=== PATIENT | female | born 1965 | race Caucasian/White ===

== ENCOUNTER 2019-03-19 11:24 | Outpatient (CLI) | payer OTHER, SELFPAY ==
--- NOTE | ~2019-03-19 | MMUS_ITS ---
EXAMINATION: MM diagnostic mammo BI, US breast BI complete HISTORY: Bilateral developing breast asymmetries reported on 02/27/2019 screening mammogram TECHNIQUE: Additional full field ML and spot 3-D tomosynthesis images of both breasts were performed and synthetic 2-D images were generated. CAD analysis was submitted and interpreted. High resolution complete bilateral breast ultrasound was performed. COMPARISON: 02/27/2019, 01/24/2018, 01/17/2017 bilateral digital screening mammogram examinations FINDINGS: MAMMOGRAPHIC FINDINGS: There is somewhat nodular appearing asymmetric heterogeneous fibroglandular stroma of the breasts, wh ich may obscure small masses. Bilateral complete breast ultrasound examination was performed. ULTRASOUND: No suspicious mass or shadowing of either breast is detected. Multiple cysts are noted: Right breast: 12:00 1 cm from nipple: Parallel circumscribed 4.5 x 2.5 x 2.3 mm mildly complicated cyst, without in ternal vascularity or posterior shadowing 4:00 1 cm from nipple: 2.4 x 2.3 x 3.0 mm circumscribed hypoechoic lesion without internal vascularit y or suspicious shadowing. 7:00 1 cm from nipple: 2.3 x 3.7 x 2.5 mm septated cyst 9:00 1 cm from nipple: Adjacent 2.5 and 3.4 mm cysts 10:00 4 cm from nipple: 4.0 x 5.1 x 3.4 mm simple cyst with through transmission and posterior enhanc ement 11:00 4 cm from nipple: 3.1 x 3.2 x 3.5 mm simple cyst with through transmission and posterior enhanc ement Left breast: 12:00 2 cm from nipple: Several cysts are noted, measuring up to 4.4 mm maximal dimension. 2:00 5 cm from nipple: 3.8 x 4.6 x 2.6 mm cyst 2:00 5 cm from nipple: 3.4 x 2.9 x 2.9 mm cyst 8:00 1 cm from nipple: 1.5 x 3.2 x 2.7 mm minimally septated cyst 9:00 2 cm from nipple: 2.4 x 3.2 mm cyst with through transmission and posterior enhancement 10:00 2 cm from nipple: 3.1 x 2.1 x 2.1 mm simple cyst Subareolar area: 2.9 x 4.9 x 4.4 mm simple cyst IMPRESSION: 1. No mammographic evidence of malignancy; multiple bilateral breast cysts 2. Routine mammographic screening follow-up is recommended BI-RADS Category 2: Benign finding(s). Reviewed, dictated and finalized at location A. EL BRIDGE ASSEMBLER IMPRESSION: 1. No mammographic evidence of malignancy; multiple bilateral breast cysts 2. Routine mammographic screening follow-up is recommended BI-RADS Category 2: Benign finding(s).
== END 2019-03-19 11:25 | disposition home or self-care (01) ==
LOC: ANHIMG 11:27
PROVIDERS: PCP Family Medicine; Visit Provider Obstetrics & Gynecology Gynecology
DX: R92.8 Other abnormal and inconclusive findings on diagnostic imaging of breast (principal)
CPT/HCPCS: 76641; 77066

== ENCOUNTER 2019-08-26 09:13 | Outpatient (CLI) | payer OTHER, SELFPAY ==
--- NOTE | ~2019-08-26 | DEXA_ITS ---
Bone Density Report Name: Leonarda Hernandez Age: 54 Sex: Female Ethnicity: White Date of : 1965 Indication: postmenopausal; parental hip fracture; height loss; prior fracture; Referring Provider: SHIELA DURAND Study: Bone densitometry was performed. Exam Date: August 26, 2019 Accession number: [id number] Bone Density: Region BMD T-score Z-score Classification AP Spine (L1-L4) 0.822 -2.0 -1.0 Osteopenia Femoral Neck (Left) 0.588 -2.3 -1.4 Osteopenia Total Hip (Left) 0.781 -1.3 -0.7 Osteopenia Total Hip Bilateral Avg 0.796 -1.2 -0.6 Osteopenia Femoral Neck (Right) 0.586 -2.4 -1.4 Osteopenia Total Hip (Right) 0.810 -1.1 -0.4 Osteopenia World Health Organization criteria for BMD impression classify patients as: Normal (T-score at or above -1.0), Osteopenia (T-score between -1.0 and -2.5), or Osteoporosis (T-score at or below -2.5). 10-year Fracture Risk(1): Major Osteoporotic Fracture 27% Hip Fracture 4.8% Reported Risk Factors: [place] (), Neck BMD=0.586, BMI=23.7, previous fracture, parental fracture, smoking (1) FRAX(R) Version 3.08. Fracture probability calculated for an untreated patient. Fracture probability may be lower if the patient has received treatment. Clinical Information Provided by Patient: Has had a low trauma fracture Parent has had a hip fracture Smokes Has used the following medications: HRT (i.e. estrogen/hormone therapy), Vitamin D Patient maximum height was 65 Menopause Age: 45 No regular weight bearing exercise Onset of menses at age 12 Number of children 3 Impression: The patient has low bone mass, based on the Right Femoral Neck T-score. The patient has an estimated ten-year risk of hip fracture of 4.8% and an estimated ten-year risk of major fracture of 27%, based on the WHO FRAX algorithm. The patient has risk factors, including: parental hip fracture, smoking, previous fracture. Discussion: BONE DENSITY IS LOW AT ONE OR MORE SKELETAL SITES. THE PATIENT'S BMD AND CLINICAL RISK FACTORS CONTRIBUTE TO THIS PATIENT'S HIGH RISK OF FRACTURE. This patient's lowest T-score is low at one or more skeletal sites. It meets the World Health Organization's (WHO) criteria for ?low bone mass? (T-score between -1.0 and -2.5). The patient's 10-year risk of hip fracture and 10 year risk of a major osteoporotic fracture as calculated by FRAX exceeds the threshold where pharmacological therapy is recommended by the National Osteoporosis Foundation (NOF). However, all treatment decisions require clinical judgment and consideration of individual patient factors, including patient preferences, comorbidities, previous drug use, risk factors not captured in the FRAX model (e.g., frailty, falls, vitamin D deficiency, increased bone turnover, interval significant decline in bone dens
== END 2019-08-26 09:14 | disposition home or self-care (01) ==
PROVIDERS: Visit Provider Obstetrics & Gynecology Gynecology
DX: Z78.0 Asymptomatic menopausal state (principal); M85.88 Other specified disorders of bone density and structure, other site; M85.852 Other specified disorders of bone density and structure, left thigh; M85.851 Other specified disorders of bone density and structure, right thigh
CPT/HCPCS: 77080

== ENCOUNTER 2020-03-26 13:44 | Outpatient (CLI) | payer OTHER, SELFPAY ==
--- NOTE | ~2020-03-26 | MM_ITS ---
EXAMINATION: MM screening roman BI w carola HISTORY: Screening TECHNIQUE: Craniocaudal and mediolateral oblique 3-D tomosynthesis images were obtained and synthetic 2-D images were generated. CAD analysis was submitted and interpreted. COMPARISON: Comparison to multiple prior studies sequentially, with oldest reviewed study dated 06/2014. BREAST PARENCHYMAL COMPOSITION: There are scattered areas of fibroglandular density. FINDINGS: There is no evidence of suspicious mass, calcification, or architectural distortion to sugg est malignancy in either breast. There has been no suspicious interval change. IMPRESSION: 1. No mammographic evidence of malignancy. 2. Recommend routine screening mammography in one year. BI-RADS Category 1: Negative Reviewed, dictated and finalized at location A. ATRIC ASSISTANT
== END 2020-03-26 13:45 | disposition home or self-care (01) ==
LOC: ANHIMG 13:51
PROVIDERS: Visit Provider Obstetrics & Gynecology Gynecology
DX: Z12.31 Encounter for screening mammogram for malignant neoplasm of breast (principal)
CPT/HCPCS: 77063; 77067

== ENCOUNTER 2021-03-29 10:28 | Outpatient (CLI) | payer OTHER, SELFPAY ==
--- NOTE | ~2021-03-29 | MM_ITS ---
EXAMINATION: MM screening roman BI w carola HISTORY: Screening mammogram TECHNIQUE: Craniocaudal and mediolateral oblique 3-D tomosynthesis images were obtained and synthetic 2-D images were generated. Bilateral rotated lateral craniocaudal views. CAD analysis was submitted and interpreted. COMPARISON: 01/23/2021 bilateral screening mammogram 03/19/2019 bilateral diagnostic mammography and bilateral complete breast ultrasound 02/27/2019 bilateral screening mammogram BREAST PARENCHYMAL COMPOSITION: There are scattered areas of fibroglandular density. FINDINGS: Scattered benign calcifications. Stable mild fibroglandular asymmetry. There is no evidence of suspicious mass, calcification, or architectural distortion to suggest malignancy in either breas t. There has been no suspicious interval change. IMPRESSION: 1. No mammographic evidence of malignancy. 2. Recommend routine screening mammography in one year. BI-RADS Category 2: Benign finding(s). Reviewed, dictated and finalized at location A. RUMENT REPAIRER
== END 2021-03-29 10:29 | disposition home or self-care (01) ==
LOC: ANHIMG 10:32
PROVIDERS: PCP Family Medicine; Visit Provider Obstetrics & Gynecology Gynecology
DX: Z12.31 Encounter for screening mammogram for malignant neoplasm of breast (principal)
CPT/HCPCS: 77063; 77067

== ENCOUNTER 2022-01-14 09:39 | Outpatient (CLI) | payer OTHER, SELFPAY ==
--- NOTE | ~2022-01-14 | DEXA_ITS ---
Bone Density Report Name: LINN CHEW Age: 56 Sex: Female Ethnicity: White Date of : 1965 Indication: osteopenia; monitoring treatment; parental hip fracture; height loss; postmenopausal Referring Provider: LINN BANKS Study: Bone densitometry was performed. Exam Date: January 14, 2022 Accession number: [id number] Bone Density: Region BMD T-score Z-score Classification AP Spine(L1-L4) 0.894 -1.4 -0.2 Osteopenia Femoral Neck (Left) 0.593 -2.3 -1.2 Osteopenia Total Hip (Left) 0.754 -1.5 -0.8 Osteopenia Femoral Neck (Right) 0.585 -2.4 -1.3 Osteopenia Total Hip (Right) 0.785 -1.3 -0.5 Osteopenia Total Hip Mean 0.769 -1.4 -0.7 Osteopenia World Health Organization criteria for BMD impression classify patients as: Normal (T-score at or above -1.0), Osteopenia (T-score between -1.0 and -2.5), or Osteoporosis (T-score at or below -2.5). 10-year Fracture Risk: FRAX not reported because: Treated for osteoporosis Previous Exams: Region Exam Age BMD T-score BMD Change BMD Change Date g/cm2 vs Baseline vs Previous AP Spine (L1-L4) 01/14/2022 56 0.894 -1.4 0.073 (8.8%)* 0.073 (8.8%)* 08/26/2019 54 0.822 -2.0 Total Hip(Left) 01/14/2022 56 0.754 -1.5 -0.027 (-3.5%) -0.027 (-3.5%) 08/26/2019 54 0.781 -1.3 Total Hip(Right) 01/14/2022 56 0.785 -1.3 -0.025 (-3.1%) -0.025 (-3.1%) 08/26/2019 54 0.810 -1.1 *Denotes significance at 95% confidence level, LSC for AP Spine = 0.022 g/cm2, LSC for Total Hip = 0.027 g/cm2 Clinical Information Provided by Patient: Parent has had a hip fracture Smokes Is being treated for osteoporosis Has used the following medications: Fosamax (i.e. alendronate), HRT (i.e. estrogen/hormone therapy), Vitamin D, Calcium Patient maximum height was 65 Menopause Age: 45 No regular weight bearing exercise Drinks caffeinated beverages Onset of menses at age 13 Number of children 3 Impression: The patient has low bone mass, based on the Right Femoral Neck T-score. The patient has risk factors, including: parental hip fracture, smoking. No significant bone loss was observed. Discussion: PATIENT UNDER TREATMENT WITH NO SIGNIFICANT BMD LOSS SINCE LAST EXAM. In an untreated patient, BMD typically declines with age. A lack of decline or gain is usually a sign that treatment is efficacious and fracture risk is reduced. It is important to ask patients whether they are taking their medications and to
== END 2022-01-14 09:40 | disposition home or self-care (01) ==
LOC: ANHIMG 09:41
PROVIDERS: PCP Family Medicine; Visit Provider Advanced Practice Midwife
DX: M85.88 Other specified disorders of bone density and structure, other site (principal); M85.852 Other specified disorders of bone density and structure, left thigh; M85.851 Other specified disorders of bone density and structure, right thigh
CPT/HCPCS: 77080

== ENCOUNTER 2023-10-06 09:44 | Outpatient (CLI) | payer OTHER, MEDICARE, SELFPAY ==
--- NOTE | ~2023-10-06 | MM_ITS ---
EXAMINATION: MM screening roman BI w carola HISTORY: Screening TECHNIQUE: Craniocaudal and mediolateral oblique 3-D tomosynthesis images were obtained and synthetic 2-D images were generated. CAD analysis was submitted and interpreted. COMPARISON: Comparison to multiple prior studies sequentially, with oldest reviewed study dated 01/06 2. BREAST PARENCHYMAL COMPOSITION: Not dense: There are scattered areas of fibroglandular density. FINDINGS: There is no evidence of suspicious mass, calcification, or architectural distortion to sugg est malignancy in either breast. There has been no suspicious interval change. IMPRESSION: 1. No mammographic evidence of malignancy. 2. Recommend routine screening mammography in one year. BI-RADS Category 1: Negative Reviewed, dictated and finalized at location B.
== END 2023-10-06 09:45 | disposition home or self-care (01) ==
PROVIDERS: PCP Family Medicine; Visit Provider Obstetrics & Gynecology
DX: Z12.31 Encounter for screening mammogram for malignant neoplasm of breast (principal)
CPT/HCPCS: 77063; 77067

== ENCOUNTER 2024-05-21 16:49 | Emergency (ER) | payer OTHER, MEDICARE, SELFPAY ==
--- NOTE | ~2024-05-21 | CT_ITS ---
CT facial bones w con Ordering provider: Ce Madsen History: . periorbital cellulitis? . Comparison: None. Technique: Thin slice axial CT of the facial bones was performed without contrast. Coronal and sagit pranav reformatted images were also obtained. . Automated exposure control and iterative reconstruction technique were employed. The dose-length product was 315.92 mGy-cm. 75 mL Omnipaque 350 was given IV . FINDINGS: PARANASAL SINUSES: Right maxillary sinus disease otherwise, Well aerated. BONES: No facial fracture including no nasal bone fracture. Dental cares seen in the anterior midline of the lower mandible ORBITS AND SUPERFICIAL SOFT TISSUES: The optic globes and orbits are normal. Fat stranding seen anter ior to the right orbit and anterior to the right upper mandible suggestive of cellulitis with possi ble small focus of abscess formation which measures 7x9x6 mm. Follow-up advised. Otherwise, The super ficial soft tissues are normal. VISUALIZED MASTOIDS: Well aerated. LIMITED VISUALIZED BRAIN PARENCHYMA: Aneurysm is seen in the right MCA junction between the first and second segments measuring 1.3 x 0.8x0.9 cm which is larger study done in September 06, 2016. Prominent right superior ophthalmic vein. No definite cc fistula is not well demonstrated. Further ev aluation advised. IMPRESSION: No facial fracture. Cellulitis anterior to the right upper mandible and anterior to the right orbit with possible small a bscess. Aneurysm is seen in the right MCA which is larger than seen in the previous study done in 2016. 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 Further evalu ation is advised. Reviewed, dictated and finalized at location A. IMPRESSION: No facial fracture. Cellulitis anterior to the right upper mandible and anterior to the right orbit with possible small abscess. Aneurysm is seen in the right MCA which is larger than seen in the previous donn dy done in 2017. 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 Further evaluation is advised.
[2024-05-21 16:55] VITALS: BP 131/85; PULSE 98; RESP 16; TEMP 36.4; O2SAT 100
--- NOTE | 2024-05-21 17:01 | ED_ITS ---
HPI - Skin/Abscess/Foreign Bdy General Chief complaint: Skin/Abscess/Foreign Body <eC Madsen PA-C - Last Filed: 05/21/24 17:03> Stated complaint: Swelling right side of face- not Dental <Ce Madsen PA-C - Last Filed: 05/21/24 17:03> Time Seen by Provider: 05/21/24 18:33 <Ce Madsen PA-C - Last Filed: 05/21/24 17:03> Focused HPI: 58 y/o F presents to the ED for right sided facial swelling x3 weeks. She has been to the dentist several times. Initially was rx amoxicillin with improvement, however swelling came back after she finished the course. She saw her dentist again and was rx keflex yesterday. Has taken 2 doses but swelling has worsened so she came to the ED. States her dentist has told her that her teeth do not look infected. She denies fever, difficulty breathing or swallowing, drooling, fever, n/v. Denies pain with EOMs, vision changes. GENERAL: Well-appearing, well-nourished, and in no acute distress. HEAD: Normocephalic, atraumatic. Edema, warmth and erythema inferior to the right orbit with tenderness CHEST: Clear to auscultation. ?No respiratory distress. HEART: Regular rate and rhythm.? NEURO: ?Alert and oriented x3. Patient screened in triage and initial orders placed.? ?Additional care and disposition to be based upon?diagnostic testing and treatment. <Ce Madsen PA-C - Last Filed: 05/21/24 17:03> Source: patient <SOHAM Hernández Last Filed: 05/21/24 20:24> Mode of arrival: ambulatory <SOHAM Hernández Last Filed: 05/21/24 20:24> Limitations: no limitations <SOHAM Hernández Last Filed: 05/21/24 20:24> History of Present Illness HPI narrative: Agree MSE note above <SOHAM Hernández Last Filed: 05/21/24 20:24> Related Data Home medications: Home Medications ?Medication ?Instructions ?Recorded ?Confirmed ?Last Taken ?Type amitriptyline 10 mg tablet 20 mg PO QHS 10/09/20 08/21/23 Unknown History bisacodyl 5 mg tablet 5 mg PO QHS PRN 10/09/20 08/21/23 Unknown History ergocalciferol (vitamin D2) 1,250 1,250 mcg PO .3XM 10/09/20 08/21/23 Unknown History mcg (50,000 unit) capsule (Vitamin D2) melatonin 10 mg capsule 10 mg PO QHS 10/09/20 08/21/23 Unknown History <Ce Madsen PA-C - Last Filed: 05/21/24 17:03> Allergies/Adverse reactions: Allergies Allergy/AdvReac Type Severity Reaction Status Date / Time No Known Allergies Allergy Unknown Verified 05/21/24 16:51 <Ce Madsen PA-C - Last Filed: 05/21/24 17:03> Review of Systems 2 Review of Systems: All systems as dictated in HPI <Rubén Fenton PA-C - Last Filed: 05/21/24 20:24> [facility] Past Medical History Medical History: Medical History Bipolar disorder Brain aneurysm (~2001) front lobe Essential hypertension Headache Hx of mammogram (~02/2020) Hyponatremia Irritable bowel syndrome IUD (intrauterine device) in place Prediabetes <Ce Madsen PA-C - Last Filed: 05/21/24 17:03> Surgical History Surgical History: Surgical History Hx of colonoscopy polyp removed Hx of colonoscopy with polypectomy <Ce Madsen PA-C - Last Filed: 05/21/24 17:03> Family History Family History: Family History Mother Cancer Diabetes mellitus Cerebrovascular accident Father Diabetes mellitus Heart disease Sibling Diabetes mellitus <Ce Madsen PA-C - Last Filed: 05/21/24 17:03> Social History Social History: Social History Smoking status: Current some day smoker Tobacco type: cigarettes Second hand tobacco smoke exposure: No Smoking end date: 07/21/18 Additional smoking assessment comments: Pt states she has one cigarette rarely Alcohol intake: current Alcohol use details: social Substance use: never Substance use type: does not use Lack of Transportation: No Lack of Food: Never True Current Housing: Decline to Answer Concerned About Future Housing: Decline to Answer Difficulty Paying Gas/Electric Bills: Decline to Answer Difficulty Paying for Meds: Decline to Answer Currently Unemployed: Decline to Answer Education: Decline to Answer Difficulty w/ Childcare or Family Care: Decline to Answer Living arrangements: with family Occupation/Education: unemployed Gender identity (if verbalized by the patient): Female Sexual Orientation (if Verbalized by the Patient): Straight or Heterosexual Spiritual care concerns: No Agree to blood products: Yes <Ce Madsen PA-C - Last Filed: 05/21/24 17:03> Exam 2 Narrative: GENERAL: Well-appearing, well-nourished, and in no acute distress. HEAD: Normocephalic, atraumatic. EYES: PERRLA and EOMI. No pain with EOM ENT: Mild facial swelling and erythema noted to the right maxilla area. It is minimally tender. There is no focal fluctuance or induration. No drainage. Nares clear, no rhinorrhea or epistaxis. Mucous membranes moist. Oropharynx without tonsillar hypertrophy exudate or other lesions. TMs normal bilaterally. NECK: Supple. No adenopathy or masses. CHEST: No respiratory distress. Clear to auscultation. No wheezes rales or rhonchi HEART: Regular rate and rhythm. No murmur heard. Normal peripheral pulses. ABDOMEN: Soft, nontender, nondistended, normal active bowel sounds. MSK: Normal range of motion. No edema. SKIN: Warm, dry, no rash. NEURO: Alert and oriented x4. No focal deficits. PSYCH: Normal mood and affect. <Rubén Fenton PA-C - Last Filed: 05/21/24 20:24> Course [employer]/PA Physician Supervision I agree with midlevel documentation; I performed the medical decision making component of this evaluation. Patient persistent cellulitis, CT showing potential tiny abscess, no obvious fluctuance on exam, will change antibiotic to cover MRSA and provide strict return precautions and follow-up to ENT, with instructions to return to the ER if symptoms persist as she may need IV antibiotics. <Jayne Parekh MD - Last Filed: 05/21/24 21:12> Vital Signs Vital signs: Vital Signs Temperature 97.6 F 05/21/24 16:55 Pulse Rate 98 05/21/24 16:55 Respiratory Rate 16 05/21/24 16:55 Blood Pressure 131/85 05/21/24 16:55 Pulse Oximetry 100 05/21/24 16:55 Temperature 97.6 F 05/21/24 16:55 Pulse Rate 79 05/21/24 20:27 Respiratory Rate 16 05/21/24 20:27 Blood Pressure 131/85 05/21/24 20:27 Pulse Oximetry 97 05/21/24 20:27 <Ce Madsen PA-C - Last Filed: 05/21/24 17:03> Vital Signs Temperature 97.6 F 05/21/24 16:55 Pulse Rate 98 05/21/24 16:55 Respiratory Rate 16 05/21/24 16:55 Blood Pressure 131/85 05/21/24 16:55 Pulse Oximetry 100 05/21/24 16:55 Temperature 97.6 F 05/21/24 16:55 Pulse Rate 79 05/21/24 20:27 Respiratory Rate 16 05/21/24 20:27 Blood Pressure 131/85 05/21/24 20:27 Pulse Oximetry 97 05/21/24 20:27 <Rubén Fenton PA-C - Last Filed: 05/21/24 20:24> Vital Signs Temperature 97.6 F 05/21/24 16:55 Pulse Rate 98 05/21/24 16:55 Respiratory Rate 16 05/21/24 16:55 Blood Pressure 131/85 05/21/24 16:55 Pulse Oximetry 100 05/21/24 16:55 Temperature 97.6 F 05/21/24 16:55 Pulse Rate 79 05/21/24 20:27 Respiratory Rate 16 05/21/24 20:27 Blood Pressure 131/85 05/21/24 20:27 Pulse Oximetry 97 05/21/24 20:27 <Jayne Parekh MD - Last Filed: 05/21/24 21:12> MDM - Skin/Abscess/Foreign Bdy MDM Narrative Medical decision making narrative: This is a 58-year-old female who presents to the ED for chief complaint of right-sided facial swelling and redness. Vitals are normal. Exam remarkable for the above. No palpable fluctuance or induration. Lab work shows mildly elevated white count of 12.7. ESR is elevated to 50 and CRP elevated at 2.9. CMP unremarkable overall. Facial bones CT with contrast: IMPRESSION: No facial fracture. Cellulitis anterior to the right upper mandible and anterior to the right orbit with possible small abscess. Aneurysm is seen in the right MCA which is larger than seen in the previous study done in 2017. 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 Further evaluation is advised. Overall presentation is consistent with facial cellulitis/periorbital cellulitis. She does not exhibit signs of a full orbital cellulitis. There is call for possible abscess although I am unable to appreciate any abscess like on bedside exam. Regarding the MCA aneurysm, patient is aware of this and will follow-up with her physician. I do feel that if this is more of a periorbital cellulitis she will likely benefit from changing course of antibiotics. She has been on a couple rounds of cephalexin as well as amoxicillin. She would likely benefit much more from Bactrim in this case. Does not appear toxic or septic to warrant admission at this time, hopefully the Bactrim will be to fully eradicate the infection. ENT referral given for follow-up. Patient will be discharged in stable condition. Supportive measures discussed and return precautions given. Patient is understanding and agreeable with plan for discharge with ENT follow-up. <Rubén Fenton PA-C - Last Filed: 05/21/24 20:24> Lab Data Result diagrams: 05/21/24 18:30 05/21/24 18:47 <Ce Madsen PA-C - Last Filed: 05/21/24 17:03> Labs: Lab Results 05/21/24 05/21/24 Range/Units 18:30 18:47 WBC 12.7 H (4.5-10.0) K/mm3 RBC 4.66 (4.2-5.4) M/mm3 Hgb 14.3 (12.0-15.0) g/dL Hct 41.4 (37.0-47.0) % MCV 88.8 (80-100) fl MCH 30.7 (26-34) pg MCHC 34.5 (32-36) g/dl RDW 13.2 (11.5-14.5) % Plt Count 295 (150-375) k/mm3 MPV 8.1 (7.4-10.4) fl Immature Gran % (Auto) 0.3 (0-0.5) % Neut % (Auto) 66.2 (45.5-73.1) % Lymph % (Auto) 22.3 (18.3-44.2) % [place] % (Auto) 9.2 H (2.6-8.5) % Eos % (Auto) 1.7 (0-4.4) % Baso % (Auto) 0.3 (0.2-1.2) % Lymph # (Auto) 2.82 (0.9-3.2) K/mm3 [place] # (Auto) 1.2 H (0.1-0.6) K/mm3 Eos # (Auto) 0.2 (0-0.3) K/mm3 Baso # (Auto) 0.0 (0.0-0.1) K/mm3 Abs Immat Gran (auto) 0.04 H (0.00-0.031) K/mm3 Absolute Neuts (auto) 8.4 H (1.3-6.7) K/mm3 Absolute Nucleated RBC 0.000 (0.0-0.012) K/mm3 Nucleated RBC % 0.0 (0.0-0.2) % ESR 50 H (0-20) mm/hr Sodium 135 L (137-145) mmol/L Potassium 4.2 (3.4-5.0) mmol/L Chloride 101 (98-107) mmol/L Carbon Dioxide 25 (22-30) mmol/L Anion Gap 9 (4-12) mmol/L BUN 12 (7-17) mg/dL Creatinine 0.67 L 0.70 (0.7-1.0) mg/dL Estim Creat Clear Calc Not Reportable Not Reportable Estimated GFR > 60 > 60 (59 - ) Glucose 110 (65-110) mg/dL Calcium 10.0 (8.4-10.2) mg/dL Total Bilirubin 0.5 (0.2-1.3) mg/dL AST 22 (14-36) U/L ALT 20 (6-35) U/L Alkaline Phosphatase 84 (38-126) U/L C-Reactive Protein 2.9 H (<1.0) mg/dL Total Protein 8.0 (6.3-8.2) g/dL Albumin 4.6 (3.5-5.1) g/dL <Ce Madsen PA-C - Last Filed: 05/21/24 17:03> Lab Results 05/21/24 05/21/24 Range/Units 18:30 18:47 WBC 12.7 H (4.5-10.0) K/mm3 RBC 4.66 (4.2-5.4) M/mm3 Hgb 14.3 (12.0-15.0) g/dL Hct 41.4 (37.0-47.0) % MCV 88.8 (80-100) fl MCH 30.7 (26-34) pg MCHC 34.5 (32-36) g/dl RDW 13.2 (11.5-14.5) % Plt Count 295 (150-375) k/mm3 MPV 8.1 (7.4-10.4) fl Immature Gran % (Auto) 0.3 (0-0.5) % Neut % (Auto) 66.2 (45.5-73.1) % Lymph % (Auto) 22.3 (18.3-44.2) % [place] % (Auto) 9.2 H (2.6-8.5) % Eos % (Auto) 1.7 (0-4.4) % Baso % (Auto) 0.3 (0.2-1.2) % Lymph # (Auto) 2.82 (0.9-3.2) K/mm3 [place] # (Auto) 1.2 H (0.1-0.6) K/mm3 Eos # (Auto) 0.2 (0-0.3) K/mm3 Baso # (Auto) 0.0 (0.0-0.1) K/mm3 Abs Immat Gran (auto) 0.04 H (0.00-0.031) K/mm3 Absolute Neuts (auto) 8.4 H (1.3-6.7) K/mm3 Absolute Nucleated RBC 0.000 (0.0-0.012) K/mm3 Nucleated RBC % 0.0 (0.0-0.2) % ESR 50 H (0-20) mm/hr Sodium 135 L (137-145) mmol/L Potassium 4.2 (3.4-5.0) mmol/L Chloride 101 (98-107) mmol/L Carbon Dioxide 25 (22-30) mmol/L Anion Gap 9 (4-12) mmol/L BUN 12 (7-17) mg/dL Creatinine 0.67 L 0.70 (0.7-1.0) mg/dL Estim Creat Clear Calc Not Reportable Not Reportable Estimated GFR > 60 > 60 (59 - ) Glucose 110 (65-110) mg/dL Calcium 10.0 (8.4-10.2) mg/dL Total Bilirubin 0.5 (0.2-1.3) mg/dL AST 22 (14-36) U/L ALT 20 (6-35) U/L Alkaline Phosphatase 84 (38-126) U/L C-Reactive Protein 2.9 H (<1.0) mg/dL Total Protein 8.0 (6.3-8.2) g/dL Albumin 4.6 (3.5-5.1) g/dL <Rubén Fenton PA-C - Last Filed: 05/21/24 20:24> Lab Results 05/21/24 05/21/24 Range/Units 18:30 18:47 WBC 12.7 H (4.5-10.0) K/mm3 RBC 4.66 (4.2-5.4) M/mm3 Hgb 14.3 (12.0-15.0) g/dL Hct 41.4 (37.0-47.0) % MCV 88.8 (80-100) fl MCH 30.7 (26-34) pg MCHC 34.5 (32-36) g/dl RDW 13.2 (11.5-14.5) % Plt Count 295 (150-375) k/mm3 MPV 8.1 (7.4-10.4) fl Immature Gran % (Auto) 0.3 (0-0.5) % Neut % (Auto) 66.2 (45.5-73.1) % Lymph % (Auto) 22.3 (18.3-44.2) % [place] % (Auto) 9.2 H (2.6-8.5) % Eos % (Auto) 1.7 (0-4.4) % Baso % (Auto) 0.3 (0.2-1.2) % Lymph # (Auto) 2.82 (0.9-3.2) K/mm3 [place] # (Auto) 1.2 H (0.1-0.6) K/mm3 Eos # (Auto) 0.2 (0-0.3) K/mm3 Baso # (Auto) 0.0 (0.0-0.1) K/mm3 Abs Immat Gran (auto) 0.04 H (0.00-0.031) K/mm3 Absolute Neuts (auto) 8.4 H (1.3-6.7) K/mm3 Absolute Nucleated RBC 0.000 (0.0-0.012) K/mm3 Nucleated RBC % 0.0 (0.0-0.2) % ESR 50 H (0-20) mm/hr Sodium 135 L (137-145) mmol/L Potassium 4.2 (3.4-5.0) mmol/L Chloride 101 (98-107) mmol/L Carbon Dioxide 25 (22-30) mmol/L Anion Gap 9 (4-12) mmol/L BUN 12 (7-17) mg/dL Creatinine 0.67 L 0.70 (0.7-1.0) mg/dL Estim Creat Clear Calc Not Reportable Not Reportable Estimated GFR > 60 > 60 (59 - ) Glucose 110 (65-110) mg/dL Calcium 10.0 (8.4-10.2) mg/dL Total Bilirubin 0.5 (0.2-1.3) mg/dL AST 22 (14-36) U/L ALT 20 (6-35) U/L Alkaline Phosphatase 84 (38-126) U/L C-Reactive Protein 2.9 H (<1.0) mg/dL Total Protein 8.0 (6.3-8.2) g/dL Albumin 4.6 (3.5-5.1) g/dL <Jayne Parekh MD - Last Filed: 05/21/24 21:12> Discharge Plan Discharge Clinical Impression: Cellulitis, periorbital <Ce Madsen PA-C - Last Filed: 05/21/24 17:03> Patient Disposition: Home <SOHAM Palacios Last Filed: 05/21/24 17:03> Condition: Stable <SOHAM Palacios Last Filed: 05/21/24 17:03> Instructions: Antibiotic Form <SOHAM Palacios Last Filed: 05/21/24 17:03> Additional Instructions: Your exam and imaging today show facial cellulitis. This should be treated with Bactrim. Please stop taking the cephalexin. Follow-up with ENT. Use Tylenol and ibuprofen for pain or fevers. If you have any new or worsening symptoms please return to the ER for further evaluation. <SOHAM Palacios Last Filed: 05/21/24 17:03> Patient Language: Chinese <SOHAM Palacios Last Filed: 05/21/24 17:03> Prescriptions: New sulfamethoxazole-trimethoprim [Bactrim DS] 800-160 mg tablet 1 tablet PO Q12H Qty: 14 0RF No Action melatonin 10 mg capsule 10 mg PO QHS amitriptyline 10 mg tablet 20 mg PO QHS ergocalciferol (vitamin D2) [Vitamin D2] 1,250 mcg (50,000 unit) capsule 1,250 mcg PO .3XM bisacodyl 5 mg tablet 5 mg PO QHS PRN Vraylar 6 mg capsule 6 mg PO DAILY Qty: 30 0RF tobramycin 0.3 % drops 2 drp RIGHT EYE Q4H Qty: 5 0RF Rx Instructions: Use for 5 days cetirizine 10 mg tablet 10 mg PO DAILY PRN (Reason: allergy symptoms) Qty: 30 6RF diphenhydramine HCl [Allergy Relief(diphenhydramin)] 25 mg tablet 25 mg PO QHS PRN (Reason: allergy symptoms) Qty: 30 5RF (DME) pen needle, diabetic [BD Ultra-Fine Short Pen Needle] 31 gauge x 5/16 needle See Rx Instructions .Route Qty: 50 3RF Rx Instructions: As directed daily fluticasone propionate 50 mcg/actuation spray,suspension 1 spray intranasal Q12H Qty: 16 9RF Rx Instructions: administer into each nostril nicotine 21 mg/24 hr patch 24 hour 1 patch transdermal DAILY Qty: 28 0RF lisinopril 5 mg tablet 5 mg PO DAILY Qty: 30 5RF Mounjaro 7.5 mg/0.5 mL pen injector 7.5 mg subcut WEEKLY Qty: 2 1RF pantoprazole [Protonix] 40 mg tablet,delayed release (DR/EC) 40 mg PO QAM Qty: 30 7RF Mounjaro 10 mg/0.5 mL pen injector 10 mg subcut WEEKLY Qty: 2 2RF <Ce Madsen PA-C - Last Filed: 05/21/24 17:03> Follow-up/Referrals: Leonarda Ahn MD [Primary Care Provider] - Jericho Lam MD [Physician] - <Ce Madsen PA-C - Last Filed: 05/21/24 17:03> Time of Disposition: 20:06 <Ce Madsen PA-C - Last Filed: 05/21/24 17:03> 20:06 <Rubén Fenton PA-C - Last Filed: 05/21/24 20:24> 20:06 <Jayne Parekh MD - Last Filed: 05/21/24 21:12>
--- OUTSIDE RECORDS SUMMARY | 2024-05-21 17:04 | XMS_ITS | Encounter Summary ---
Author Organization [facility] Healthcare Address [address] [place] [address] Care Team Providers Care Change Release Manager Name Role Phone Leonarda Ahn MD Primary Care Provider [phone] Encounter Details Date Type Department Care Team (Late st Contact Info) Description 05/19/2024 Results Follow-Up [facility] [address] [place] [address] [address] [place] [address] Homer Hernandez MD [address] [place] [address] [address] [place], [place] [id number] Social History Tobacco Use Types Packs/Day Years Used Date Smoking Tobacco: Some Days Cigarettes Started: 10/29/2017; Last attempted to quit: 10/29/2018 Smokeless Tobacco: Never Alcohol Use Standard Drinks/Week Comments Yes 0 (1 standard drink = 0.6 oz pur e alcohol) occasionally Humiliation, Afraid, Rape, and Kick questionnair e Answer Date Recorded Within the last year, have y ou been afraid of your partner or ex-partner? No 01/23/2023 Within the last year, have y ou been humiliated or emotionally abused in other ways by your partner or ex-partner? No Within the last year, have y ou been kicked, hit, slapped, or otherwise physically hurt by your partner or ex-partner? No 01/23/2023 Within the last year, have y ou been raped or forced to have any kind of sexual activity by your partner or ex-partner? 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
--- OUTSIDE RECORDS SUMMARY | 2024-05-21 17:04 | XMS_ITS | Clinical Summary ---
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 11/22/2019 ADAN JEAN MD Active Last Documented On 11/22/2019 10:28AM ; [facility] Note: Unchanged Bipolar Disorder Moderate 02/13/2019 ADAN JEAN MD Active Last Documented On 02/13/2019 1:27PM ; [facility] Note: Unchanged Bipolar I Disorder Currently in Remission 12/26/2018 ADAN JEAN MD Active Last Documented On 12/26/2018 12:59PM ; [facility] Note: Unchanged Schizophrenia, in Remission 12/26/2018 ADAN JEAN MD Active Last Documented On 12/26/2018 12:59PM ; [facility] Note: Unchanged Dysphagia 09/05/2018 ADAN JEAN MD Active Last Documented On 09/05/2018 1:26PM ; [facility] Note: Unchanged Peripheral Neuropathy Sensory 09/05/2018 ADAN JEAN MD Active Last Documented On 09/05/2018 1:26PM ; [facility] Note: Unchanged Gerd 02/14/2018 ADAN JEAN MD Active Last Documented On 02/14/2018 2:54PM ; [facility] Note: Unchanged Nicotine Dependence 02/14/2018 ADAN JEAN MD Active Last Documented On 02/14/2018 2:54PM ; [facility] Note: Unchanged Streptococcal Sore Throat 01/26/2015 TIA MICHAELS ORTHO RN-BC Active Last Documented On 01/26/2015 4:10PM ; [facility] Note: Unchanged Gastroenteritis Viral 01/26/[address] [facility]- Active Last Documented On 01/26/2015 4:10PM ; [facility] Note: Unchanged Carpal Tunnel Syndrome 04/18/2012 SHELLI JEAN MD Active Last Documented On 04/18/2012 1:29PM ; [facility] Note: Unchanged Irritable Bowel Syndrome 10/22/2009 ADAN JEAN MD Active Last Documented On 7 10:30AM ; [facility] Allergic Rhinitis 10/22/2009 ADAN JEAN MD Active Last Documented On 7 3:54PM ; [facility] Hyperlipidemia 10/22/2009 ADAN JEAN MD Act lokesh Last Documented On 7 10:30AM ; [facility] Cerebral Artery Aneurysm 10/22/2009 ADAN ODOM MD Active Last Documented On 0 1:19PM ; [facility] Note: Unchanged Plan of Treatment No Plan of Treatment Recorded Assessments Includes: Assessments from this encounter No Assessments Recorded Medical Equipment - Implanted Devices Includes: Current Devices No Medical Equipment Recorded Medications Includes: Medications discussed during this encounter and other current Medications Current Medications (continue as prescribed) Cetirizine HCl 10 MG Oral Tablet 03/09/2020 Provider : ADAN JEAN MD Diagnosis: TAKE 1 TABLET BY MOUTH DAILY Last Documented On 03/09/2020 1:46PM By ADAN JEAN MD ; [facility] Amitriptyline HCl 10 MG Oral Tablet 03/09/2020 Provi kevin: ADAN JEAN MD Diagnosis: TAKE 2 TABLETS BY MOUTH AT BEDTIME DIRECTED Last Documented On 03/09/2020 1:45PM By ADAN JEAN MD ; [facility] risperiDONE 0.5 MG Oral Tablet Disintegrating 11/29/19 20 Provider: ADAN JEAN MD Diagnosis: one tab po QD as needed for acute anxiety Last Documented On 11/29/2019 9:24AM By ADAN JEAN MD ; [facility] risperiDONE 0.5 MG Oral Tablet 11/29/2019 Provider: ADAN JEAN MD Diagnosis: 2 tabs QHS Last Documented On 11/29/2019 9:24AM By ADAN JEAN MD ; [facility] Melatonin 10 MG Oral Capsule 11/20/2019 Provider : Diagnosis: OTC Last Documented On 0 2:05PM By CANDY REYES LPN ; [facility] Cetirizine HCl 10 MG Oral Tablet 11/20/2019 Provider : Diagnosis: Last Documented On 0 2:01PM By CANDY REYES LPN ; [facility] Famotidine 40 MG Oral Tablet 11/20/2019 Provider: Diagnosis: Last Documented On 0 2:00PM By CANDY REYES LPN ; [facility] OXcarbazepine 300 MG Oral Tablet 10/23/2019 Provider : ADAN JENA MD Diagnosis: TAKE 3 TABLETS BY MOUTH AT BEDTIME Last Documented On 10/23/2019 1:40PM By ADAN JEAN MD ; [facility] Linzess 72MCG Oral Capsule 09/05/2018 Provider: Stephen JEAN MD Diagnosis: One tablet daily Last Documented On 09/05/2018 12:01PM By ADAN JEAN MD ; [facility] Omeprazole 20MG Oral Capsule , delayed-release 02/14/2018 Provider: ADAN JEAN MD Diagnosis: Gastro-esophagea l reflux disease with esophagitis One tablet daily Last Documented On 02/14/2018 2:59PM By ADAN JEAN MD ; [facility] Medications Administered Includes: Administered Medications from this encounter No Administered Medications Recorded Results Includes: Results discussed during this encounter No Results Recorded For Specified Dates History of Present Illness Includes: History of Present Illness from this encounter No History of Present Illness Recorded Social History No Social History Recorded - Smoking Status Unknown Medical History Includes: Medical History addressed during this encounter No Medical History Recorded Family History Includes: Family History addressed during this encounter No Family History Recorded Review of Systems Includes: Review of Systems from this encounter No Review of Systems Recorded Mental Status Includes: Mental Status from this encounter No Mental Status Recorded Functional Status Includes: Functional Status from this encounter No Functional Status Recorded Physical Exam Includes: Physical Exam from this encounter No Physical Exam Recorded Allergies Includes: Active Allergies Substance Type Reaction Onset Date Resolved Date Statu s TORADOL Allergy HALLUCINATIONS N ERVOUS FROM WASTE DOWN 09/10/2014 Active Last Documented On 7 10:17AM ; [facility] Stadol Allergy 09/10/2014 Active Last Documented On 7 10:17AM ; [facility] Note: NERVOUS, FEELS ANSY Samuelin Allergy 09/10/2014 Active Last Documented On 7 10:17AM ; [facility] Note: CAUSES NERVOUSNESS Encounters Encounter Provider Location Date Check-In Time Check-Out Time Diagnosis * PHONE CALL SAV ROMO [facility] 0 9:52AM 11:59PM Insurance Includes: Active Insurance Policies Plan Name Member ID Group # Subscriber Relationship Effect lokesh Dates - [facility] [id number] LINN Yip f Clinical Notes Includes: Clinical Notes from this encounter No Clinical Notes Recorded
--- OUTSIDE RECORDS SUMMARY | 2024-05-21 17:04 | XMS_ITS | Encounter Summary ---
Author Organization [facility] Address [address] [place] [address] Care Team Providers Care Member Service Representative Name Role Phone Leonarda Ahn MD Primary Care Provider [phone] Reason for Visit * Reason Onset Date Comments FSH 03/25/2024 Encounter Details Date Type Department Care Team (Late st Contact Info) Description 03/25/2024 Results Follow-Up [address] [id number] Wendy Thompson RN Symptomatic menopausal or female climacteric states (Primary Dx) Social History Tobacco Use Types Packs/Day Years [...] on file Legal Sex Female 2:27 AM COMMERCIAL COUNSEL Gender Identity Not on file Sexual Orientation Not on file documented as of this encounter Miscellaneous Notes * Result Encounter Note - Homer Hernandez MD - 04/07/2024 10:17 PM COMMERCIAL COUNSEL Please call patient with results. Her FSH shows that she is in menopause. Her ultrasound was normalbut her EMC was not able to be reliably measured. Let's see for an EMB in the next two weeks. Ask if she finished the Augmentin, if discharge is better and if she has had any more bleeding. Thanks. ERCIAL COUNSEL * Telephone Encounter - Wendy Thompson RN - 03/25/2024 10:17 AM COMMERCIAL COUNSEL Pt to have an FSH done on 04-01-24 to assure she is in menopause. JT removed her IUD at her last visit on 03-19-24. Order placed. ERCIAL COUNSEL ERCIAL COUNSEL documented in this encounter Plan of Treatment Not on file documented as of this encounter Results * Follicle stimulating hormone (04/01/2024 8:12 AM COMMERCIAL COUNSEL) FSH 48.4 IUnits/L Comment: Interpretive Data Male: Adults: 1.5 - 12.4 IUnits/L Female: Follicular: 3.5 - 12.5 IUnits/L Ovulation: 4.7 - 21.5 IUnits/L Luteal: 1.7 - 7.7 IUnits/L Postmenopausal: 25.8 - 134.8 IUnits/L Current interpretive data was last revised 2015. Testing performed by: [facility], [address] [place] [address]., [id number] Blood 04/01/2024 8:12 AM COMMERCIAL COUNSEL 04/01/2024 2:29 PM COMMERCIAL COUNSEL us Homer Hernandez MD LAB BLOOD ORDERABLES Final Result Performing Organization Address City/State/[facility] Co de Phone Number [facility] ([address]) [address] [facility] Department [place] [address] documented in this encounter Visit Diagnoses Diagnosis Symptomatic menopausal or female climacteric states- Primary documented in this encounter Care Teams Member Service Representative Relationship Specialty Start Date End Date Leonarda Ahn MD PCP - General Family Medicine 03/09/23 documented as of this encounter
--- OUTSIDE RECORDS SUMMARY | 2024-05-21 17:04 | XMS_ITS | Clinical Summary ---
Author Organization [facility] Address [address] [place] [address] Phone Care Team Providers Care Executive Legal Secretary Name Role Phone ADAN JEAN MD Primary Care Provider Unavail able Reason for Referral Date Encounter Description Provider Reason for Referral 12/04/19 * PHONE CALL ADAN JEAN MD Request Co nsultation By Specialist Reason for Visit and Chief Complaint * PHONE CALL Problems Includes: Problems addressed during this encounter and other active Problems Current Visit Onset Date Resolved Date Provider Conditio n Status 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 11/22/2019 ADAN JEAN MD Active Last Documented On 11/22/2019 10:28AM ; [facility] Note: Unchanged Cerebral Artery Aneurysm 10/22/2009 ADAN JEAN MD Active Last Documented On 10/22/2009 1:19PM ; [facility] Note: Unchanged Past Visits Onset Date Resolved Date Provider Condition Status Bipolar Disorder Moderate 02/13/2019 ADAN JEAN MD Active Last Documented On 02/13/2019 1:27PM ; [facility] Note: Unchanged Bipolar I Disorder Currently in Remission 12/26/2018 ADAN JEAN MD Active Last Documented On 12/26/2018 12:59PM ; [facility] Note: Unchanged Schizophrenia, in Remission 12/26/2018 ADAN JEAN MD Active Last Documented On 12/26/2018 12:59PM ; [facility] Note: Unchanged Dysphagia 09/05/2018 ADAN JEAN MD Active Last Documented On 09/05/2018 1:26PM ; [facility] Note: Unchanged Peripheral Neuropathy Sensory 09/05/2018 ADAN JEAN MD Active Last Documented On 09/05/2018 1:26PM ; [facility] Note: Unchanged Gerd 02/14/2018 ADAN JEAN MD Active Last Documented On 02/14/2018 2:54PM ; [facility] Note: Unchanged Nicotine Dependence 02/14/2018 ADAN JEAN MD Active Last Documented On 02/14/2018 2:54PM ; [facility] Note: Unchanged Streptococcal Sore Throat 01/26/2015 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 Last Documented On 01/26/2015 4:10PM ; [facility] Note: Unchanged Gastroenteritis Viral 01/26/2015 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 Active Last Documented On 01/26/2015 4:10PM ; [facility] Note: Unchanged Carpal Tunnel Syndrome 04/18/2012 SHELLI JEAN MD Active Last Documented On 04/18/2012 1:29PM ; [facility] Note: Unchanged Irritable Bowel Syndrome 10/22/2009 ADAN JEAN MD Active Last Documented On 7 10:30AM ; [facility] Allergic Rhinitis 10/22/2009 ADAN JEAN MD Active Last Documented On 7 3:54PM ; [facility] Hyperlipidemia 10/22/2009 ADAN JEAN MD Act lokesh Last Documented On 7 10:30AM ; [facility] Plan of Treatment - Transition in care, clinical summary provided - Last Documented On 12/05/2019 11:32AM ; [facility] - Request consultation by specialist - Last Documented On 12/05/2019 11:32AM ; [facility] Referrals To Diagnosis Neurologist [facility] [place] [address] - Migraine with aura, not intractable, w/o status migrainosus Last Documented On 4 2:16PM ; [facility] Assessments Includes: Assessments from this encounter Findings - Classic migraine (with aura) without intractable migraine without status migrainosus - Last Documented On 12/05/2019 11:32AM ; [facility] - Cerebral artery aneurysm - Last Documented On 12/05/2019 11:32AM ; [facility] Medical Equipment - Implanted Devices Includes: Current Devices No Medical Equipment Recorded Medications Includes: Medications discussed during this encounter and other current Medications Current Medications (continue as prescribed) Cetirizine HCl 10 MG Oral Tablet 03/09/2020 Provider : ADAN JEAN MD Diagnosis: TAKE 1 TABLET BY MOUTH DAILY Last Documented On 03/09/2020 1:46PM By ADAN JEAN MD ; [facility] Amitriptyline HCl 10 MG Oral Tablet 03/09/2020 Provi kevin: ADAN JEAN MD Diagnosis: TAKE 2 TABLETS BY MOUTH AT BEDTIME DIRECTED Last Documented On 03/09/2020 1:45PM By ADAN JEAN MD ; [facility] risperiDONE 0.5 MG Oral Tablet Disintegrating 11/29/19 20 Provider: ADAN JEAN MD Diagnosis: one tab po QD as needed for acute anxiety Last Documented On 11/29/2019 9:24AM By ADAN JEAN MD ; [facility] risperiDONE 0.5 MG Oral Tablet 11/29/2019 Provider: ADAN JEAN MD Diagnosis: 2 tabs QHS Last Documented On 11/29/2019 9:24AM By ADAN JEAN MD ; [facility] Melatonin 10 MG Oral Capsule 11/20/2019 Provider : Diagnosis: OTC Last Documented On 0 2:05PM By CANDY REYES LPN ; [facility] Cetirizine HCl 10 MG Oral Tablet 11/20/2019 Provider : Diagnosis: Last Documented On 0 2:01PM By CANDY REYES LPN ; [facility] Famotidine 40 MG Oral Tablet 11/20/2019 Provider: Diagnosis: Last Documented On 0 2:00PM By CANDY REYES LPN ; [facility] OXcarbazepine 300 MG Oral Tablet 10/23/2019 Provider : ADAN JEAN MD Diagnosis: TAKE 3 TABLETS BY MOUTH AT BEDTIME Last Documented On 10/23/2019 1:40PM By ADAN JEAN MD ; [facility] Linzess 72MCG Oral Capsule 09/05/2018 Provider: Stephen JEAN MD Diagnosis: One tablet daily Last Documented On 09/05/2018 12:01PM By ADAN JEAN MD ; [facility] Omeprazole 20MG Oral Capsule , delayed-release 02/14/2018 Provider: ADAN JEAN MD Diagnosis: Gastro-esophagea l reflux disease with esophagitis One tablet daily Last Documented On 02/14/2018 2:59PM By ADAN JEAN MD ; [facility] Past Medications on file Amitriptyline HCl 10 MG Oral Tablet 05/29/2019 - 08/26 Provider: Diagnosis: TAKE TWO TABLETS AT HS Last Documented On 05/29/2019 11:13AM By BRAEDEN VALADEZ ; [facility] Macrobid 100 MG Oral Capsule 04/25/2019 - 05/02/2019 Provider: ADAN Dickerson Diagnosis: Urinary tract infection, site not specified One tablet twice a day Last Documented On 04/25/2019 9:59AM By ADAN JEAN MD ; [facility] Amitriptyline HCl 10 MG Oral Tablet 10/16/2018 - 10/11/2019 Provider: SAV ORR Diagnosis: TAKE 1 TABLET BY MOUTH EVERY NIGHT AT BEDTIME Last Documented On 10/16/2018 8:24AM By SAV ROMO [employer]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 ; [facility] Sulfamethoxazole-Trimethopri m 400-80MG Oral Tablet 04/03/2018 - 04/10/2018 Provider: ADAN JEAN MD Diagnosis: One tablet twice a day Last Documented On 04/03/2018 1:10PM By ADAN JEAN MD ; [facility] Fluticasone Propionate 50MCG/ACT Nasal Suspension 01/20/2017 - 07/19/2017 Provider: JOE STOKES PA-C Diagnosis: 2 sprays each nostril once daily fill with gener ic Last Documented On 7 12:02PM By JOE STOKES PA-C ; [facility] Estradiol 0.5 MG Tablet 09/18/2015 - 09/12/2016 Provid er: CRISSY CUTLER Diagnosis: 1 daily Last Documented On 6 11:17AM By CRISSY CUTLER ; [facility] Medications Administered Includes: Administered Medications from this encounter No Administered Medications Recorded Results Includes: Results discussed during this encounter No Results Recorded For Specified Dates History of Present Illness Includes: History of Present Illness from this encounter No History of Present Illness Recorded Social History No Social History Recorded - Smoking Status Unknown Procedures and Surgical History Includes: Procedures from this encounter Procedures Code Diagnosis Performing Provider Service Location Service Date Clinical summary transmitted to referring provider electronically with reasonable certainty of receipt Last Documented On 0 11:31AM ; [facility] Medical History Includes: Medical History addressed during [...] Active Last Documented On 7 10:17AM ; [facility] Stadol Allergy 09/10/2014 Active Last Documented On 7 10:17AM ; [facility] Note: NERVOUS, FEELS ANSY Nubain Allergy 09/10/2014 Active Last Documented On 7 10:17AM ; [facility] Note: CAUSES NERVOUSNESS Encounters Encounter Provider Location Date Check-In Time Check-Out Time Diagnosis * PHONE CALL ADAN JEAN MD [facility] 12/04/19 20 3:55PM 11:59PM Cerebral Artery Aneurysm,Class ic Migraine with Aura Without Intractable Migraine Without Status Migrainosus Insurance Includes: Active Insurance Policies Plan Name Member ID Group # Subscriber Relationship Effect lokesh Dates - [facility] [id number] LIN[place] Clinical Notes Includes: Clinical Notes from this encounter No Clinical Notes Recorded
--- OUTSIDE RECORDS SUMMARY | 2024-05-21 17:04 | XMS_ITS | Clinical Summary ---
Author Organization [facility] Address [address] [place] [address] Care Team Providers Care Configuration Engineer Name Role Phone Leonarda Ahn MD Primary Care Provider [phone] Allergies No known active allergies Medications amitriptyline (ELAVIL) 10 mg tablet 9 Active OXcarbazepine (TRILEPTAL) 300 mg tablet 9 Active ergocalciferol (VITAMIN D) 50,000 unit capsuleIndicati ons:takes on day 10, 20, 30 Take 1 capsule (50,000 Units total) by mouth every 30 (thirty) days Active cetirizine (ZyrTEC) 10 mg tablet Take 1 tablet (10 mg total) by mouth daily Active LORazepam (ATIVAN) 0.5 mg tablet Take 0.5-1 tablets (0.25-0.5 mg total) by mouth every 8 (eight) hours as needed for anxiety 15 tablet 9 Active Additional Information Patient not taking.Reported on 05/05/2020 traZODone (DESYREL) 100 mg tablet Take 1 tablet (100 mg total) by mouth nightly 30 tablet 0 Active hydrOXYzine (VISTARIL) 25 mg capsule Take 1 capsule (25 mg total) by mouth 3 (three) times a day as needed for anxiety 30 capsule 0 Active Additional Information Patient not taking.Reported on 05/05/2020 LINZESS 72 mcg capsule Take 1 capsule (72 mcg total) by mouth daily 30 capsule 11 0 Active meclizine (ANTIVERT) 25 mg tablet Take 1 tablet (25 mg total) by mouth 3 (three) times a day as needed for dizziness 30 tablet 0 Active Additional Information Patient not taking.Reported on 05/05/2020 ondansetron (ZOFRAN) 4 mg tablet Take 1 tablet (4 mg total) by mouth every 6 (six) hours 12 tablet 0 Active Additional Information Patient not taking.Reported on 05/05/2020 zonisamide (ZONEGRAN) 25 mg capsuleIndicati ons:Partial Epilepsy Treatment Adjunct 25mg qHS x 1wk then 50mg qHS x 1wk then 75mg qHS x 1wk then 100mg qHS 120 capsule 1 Active Additional Information Patient not taking.Reported on 05/05/2020 predniSONE (DELTASONE) 10 mg tablet Take 6 tabs (60mg) daily for 1 day, then take 5 tabs (50mg) daily for 1 day. Continue to decrease by 1 tab (10mg) every 1 day until gone. 21 tablet 1 Active Additional Information Patient not taking.Reported on 05/05/2020 Vraylar 6 mg capsule Take 1 capsule (6 mg total) by mouth nightly 3 Active fluticasone propionate (FLONASE) 50 mcg/actuation nasal spray Administer 2 sprays into each nostril daily [address] (PROTONIX) 40 mg EC tablet Take 1 tablet (40 mg total) by mouth every morning 3 Active Mounjaro 5 mg/0.5 mL pen injector Inject 0.5 mL under the skin daily 3 Active lisinopriL (PRINIVIL,ZESTR IL) 5 mg tablet Take 1 tablet (5 mg total) by mouth daily 5 Active Active Problems Problem Noted Date Diagnosed Date Menopause 01/23/2023 Assessment & Plan (01/23/2023 10:15 AM PRECISION THREAD GRINDER OPERATOR): Patient wishes to continue on her estrogen for menopausal symptoms. We discussed the risks associated with HRT. We will go ahead and transition her to an estrogen compounded cream to apply daily. I would like to see her back in 6 weeks to reassess her blood pressure as it is borderline hypertensive. If her blood pressure remains elevated we will get her in to the PCP for management. We also discussed discontinuing HRT altogether. Patient verbalizes understanding. Cerebral aneurysm, nonruptured 04/09/2020 Gastroesophageal reflux disease 03/21/2019 Assessment & Plan (03/21/2019 4:43 PM PRECISION THREAD GRINDER OPERATOR): Take famotidine 40 mg tablets daily. She can use [id number] Zegerid capsules once or twice daily as needed as well. Anxiety 02/02/2019 Irritable bowel syndrome with constipation 10/25 Assessment & Plan (03/21/2019 4:43 PM PRECISION THREAD GRINDER OPERATOR): Will continue Linzess 72 micro g daily capsules. Follow-up in few months. Assessment & Plan (12/20/2018 4:05 PM PRECISION THREAD GRINDER OPERATOR): Still constipation issues. Will add mineral oil 1 tbsp daily. Will increase Linzess to 145 micro gram capsule daily and samples given. Follow-up in 3 months Assessment & Plan (10/25/2018 12:34 PM CDT): Continue Linzess 72 micro g daily. Discussed with the patient to start fiber gummy is a fiber supplement and also tried [id number] milk of magnesia as needed. Dyspepsia 10/18/2018 Overview (10/18/2018): Added automatically from request for surgery [id number] Assessment & Plan (12/20/2018 4:05 PM PRECISION THREAD GRINDER OPERATOR): Continue Protonix as I think acid reflux is part of her symptoms. Follow-up in 3 months. Assessment & Plan (10/25/2018 12:34 PM CDT): Schedule EGD for further evaluation. Patient was reassured regarding her room complaints and likely related to irritable bowel syndrome. Thoracic outlet syndrome 03/15/2012 Carpal tunnel syndrome 03/15/2012 Encounters Date Type Department Care Team Description 05/19/2024 Results Follow-Up [address] [place] [id number] Hoemr Hernandez MD 05/13/2024 2:00 PM CDT Procedure visit [address] [phone] Homer Hernandez MD PMB (postmenopausal bleeding) (Primary Dx) 05/13/2024 Orders Only [address] [phone] Homer Hernandez MD 04/03/[address] [phone] Wendy Thompson RN US and Lab Results 04/01/2024 8:30 AM PRECISION THREAD GRINDER OPERATOR Ancillary Procedure [address], [place] [address] PMB (postmenopausal bleeding) 04/01/2024 8:10 AM PRECISION THREAD GRINDER OPERATOR Lab [address] Symptomatic menopausal or female climacteric states 03/25/2024 Results Follow-Up [address] [address] Wendy Thompson RN Symptomatic menopausal or female climacteric states (Primary Dx) 03/19/2024 1:00 PM PRECISION THREAD GRINDER OPERATOR Office Visit [address], [place] [address] Homer Hernandez MD PMB (postmenopausal bleeding) (Primary Dx); Encounter for IUD removal; Endometritis; Unsatisfactory cervical Papanicolaou smear; Vaginal discharge from Last 3 Months Surgical History Surgery Date Site/Laterality Comments COLONOSCOPY 2 years ago UPPER GASTROINTESTINAL ENDOSCOPY at age 16 CHOLECYSTECTOMY ANGIO SELECTIVE INTERNAL CAROTID RIGHT 05/05/2020 Ri ght CERVICAL CONE BIOPSY N/A Medical History Medical History Date Comments Constipation Brain aneurysm Dysphagia at times GERD (gastroesophageal reflux disease) Depression Migraine Tuberculosis Abnormal Pap smear of cervix Family History Medical History Relation Name Comments Diabetes Brother Hypertension Brother Diabetes Father Heart disease Father Hypertension Father Colon cancer Maternal Grandfather Breast cancer Mother Diabetes Mother Heart disease Mother Hypertension Mother Stroke Mother Diabetes Sister Hypertension Sister Relation Name Status Comments Brother Alive Father Alive Maternal Grandfather Mother Alive Sister Alive Social History Tobacco Use Types Packs/Day Years Used Date Smoking Tobacco: Some Days Cigarettes Started: 10/29/2017; Last attempted to quit: 10/29/2018 Smokeless Tobacco: Never Tobacco Cessation:Ready to Q uit: Not Asked; Counseling Given: Yes Alcohol Use Standard Drinks/Week Comments Yes 0 [...] on file Legal Sex Female 2:27 AM PRECISION THREAD GRINDER OPERATOR Gender Identity Not on file Sexual Orientation Not on file Obstetrics History Para Term AB IAB SAB Ectopic Multiple Livin g Live Births 3 3 3 3 3 Date Outcome GA Total Labor Labor/2nd/3rd Weight Sex Type Anes PTL Korina A1 A5 Name Clin 1989 Term M Living 1992 Term M Living 1994 Term F Living Last Filed Vital Signs Vital Sign Reading Time Taken Comments Blood Pressure 126/80 05/13/2024 2:14 PM CDT Pulse 70 05/05/2020 11:55 AM CDT Temperature 36.4 C (97.6 F) 05/05/2020 10:30 AM CDT Respiratory Rate 16 05/05/2020 11:05 AM CDT Oxygen Saturation 98% 05/05/2020 11:55 AM CDT Inhaled Oxygen Concentration - - Weight 69.9 kg (154 lb) 05/13/2024 2:14 PM CDT Height 165.1 cm (5' 5 ) 05/13/2024 2:14 PM CDT Body Mass Index 25.63 05/13/2024 2:14 PM CDT Plan of Treatment Health Maintenance Due Date Last Done Comments Colon Cancer Screening-Colonoscopy 1965 Hepatitis C Screening 1965 DTaP/Tdap/Td Vaccine (1 - Tdap) 1976 Hepatitis B Screening 07/28/1983 Pneumococcal vaccine <65 (1 of 2 - PCV) 1984 Zoster Vaccine (1 of 2) 07/28/2015 Depression Screening 01/24/2024 01/23/2023, 03/14/2019, 03/14/2019 Regular Well Visit/Exam 18-64 01/24/2024 01/23/2023 Breast Cancer Screening-Mammogram 10/05/2024 10/06/2023, 10/24/2013, 02/24/2011 Influenza Vaccine (Season Ended) 2024 01/06/20 18, 01/11/2017 Cervical Cancer Screening 03/19/2025 03/19/2024, Procedures Procedure Name Priority Date/Time Associated Diagnosis Comments TISSUE PATHOLOGY Routine 05/13/2024 12:0 0 AM CDT US TRANSVAGINAL Schedule Routine, Read Routine (OP Routine) 04/01/2024 9:27 AM PRECISION THREAD GRINDER OPERATOR PMB (postmenopausal bleeding) FOLLICLE STIMULATING HORMONE Routine 04/01/2024 8:12 AM PRECISION THREAD GRINDER OPERATOR Symptomatic menopausal or female climacteric states PAP AND HPV, REFLEX TO HPV GENOTYPES Routine 03/19/2024 1:52 PM PRECISION THREAD GRINDER OPERATOR Unsatisfactory cervical Papanicolaou smear N. GONORRHOEAE/C. TRACHOMATIS AMPLIFICATION Routine 03/19/2024 1:52 PM PRECISION THREAD GRINDER OPERATOR Endometritis AL REMOVAL INTRAUTERINE DEVICE IUD Routine 03/19/2024 1:00 PM PRECISION THREAD GRINDER OPERATOR Encounter for IUD removal SCREENING MAMMOGRAM BILATERAL W GREGOR Schedule Routine, Read Routine (OP Routine) 10/06/2023 9:31 AM CDT from Last 3 Months or Most Recently Relevant to Health Maintenance Results * Surgical pathology tissue exam request - other pathology (05/13/2024 12:00 AM CDT) Clinical information [facility] Comment:Postmenopausal bleed ing PATHOLOGIST [facility] Comment: Alexi Eaton M.D., Board Certified in Anatomic Pathology and Clinical Pathology. (electronic signature) A source [facility] Comment:Endometrium, biopsy A Gross description [facility] Comment: Specimen is received in 10% neutral buffered formalin, labeled with multiple patient identifiers and consists of multiple fragments of soft tissue aggregating to 2.2 x 1.0 x 0.2 cm, irregular in shape and matos-brown in color. The specimen is entirely submitted in one cassette. Site is not given on container. Gross exam(s) performed at: [address] [address] Label Paster: TAMRA ALLISON MD A diagnosis [facility] Comment: Scant strips of endometrial surface epithelium and crushed endometrial stroma, consistent with inactive endometrium/atrophy with blood. Endocervical tissue showing squamous metaplasia. No features diagnostic of hyperplasia or malignancy. 05/13/2024 05/15/2024 2:2 4 AM CDT Narrative [facility] - 05/16/2024 2:58 PM CDT FASTING: UNKNOWN Homer Hernandez MD LAB PATHOLOGY ORDERABLES F inal Result [facility] [address] [place] [address] * US Transvaginal (04/01/2024 9:27 AM PRECISION THREAD GRINDER OPERATOR) [place] No free fluid visualized [facility] Anatomical Region Laterality Modality Pelvis N/A Ultrasound 04/01/2024 8:54 AM PRECISION THREAD GRINDER OPERATOR Impressions 04/03/2024 8:09 PM PRECISION THREAD GRINDER OPERATOR 1. Small retroverted to midplane uterus. EMC is not reliably measured. 2. Normal appearing ovaries bilaterally. Narrative Procedure Note Homer Hernandez MD - 04/03/2024 IMPRESSION: 1. Small retroverted to midplane uterus. EMC is not reliably measured. 2. Normal appearing ovaries bilaterally. Homer Hernandez MD IMG US PROCEDURES Final Re sult * Follicle stimulating hormone (04/01/2024 8:12 AM PRECISION THREAD GRINDER OPERATOR) FSH 48.4 IUnits/L Comment: Interpretive Data Male: Adults: 1.5 - 12.4 IUnits/L Female: Follicular: 3.5 - 12.5 IUnits/L Ovulation: 4.7 - 21.5 IUnits/L Luteal: 1.7 - 7.7 IUnits/L Postmenopausal: 25.8 - 134.8 IUnits/L Current interpretive data was last revised 2015. Testing performed by: [facility], [address] [facility]., [address] Blood 04/01/2024 8:12 AM PRECISION THREAD GRINDER OPERATOR 04/01/2024 2:29 PM PRECISION THREAD GRINDER OPERATOR Homer Hernandez MD LAB BLOOD ORDERABLES Final Result Performing Organization Address City/State/[facility] Co de Phone Number [facility] [place] [address] [facility] Department [place] [address] * Pap and HPV, reflex to HPV Genotypes (03/19/2024 1:52 PM PRECISION THREAD GRINDER OPERATOR) CLINICAL INFORMATION: [facility] Comment:WWE LMP [facility] Comment:IUD Previous Pap [facility] Comment:NONE GIVEN Prev. Bx [facility] Comment:NONE GIVEN SOURCE: [facility] Comment:Cervix, Endocervix Pap, specimen adequacy [facility] Comment: Satisfactory for evaluation. Endocervical/transformation zone component present. Partially obscuring inflammation HPV interp [facility] Comment: Cytology Results: Negative for intraepithelial lesion or malignancy. COMMENTS [facility] Comment: This Pap test has been evaluated with computer assisted technology. [employer]olesale [employer] Salesperson [facility] Comment: JAF, CT(ASCP) CT Screening Location: [place] [address] [address] [id number] Review dual rate supervisor [facility] Comment: TMK, CT(ASCP) CT screening location: [place] [address] [address] [place] [place] [id number] Comment [facility] Comment: EXPLANATORY NOTE: The Pap is a screening test for cervical cancer. It is not a diagnostic test and is subject to false negative and false positive results. It is most reliable when a satisfactory sample, regularly obtained, is submitted with relevant clinical findings and history, and when the Pap result is evaluated along with historic and current clinical information. Human papillomavirus DNA, High Risk E6/E7 Not Detected NOT DETECTED [facility] Comment: Not Detected High Risk HPV types (16,18,31,33,35,39,45,51,52, 56,58,59,66,68) were not detected. Other HPV types which cause anogenital lesions may be present. The significance of the other types of HPV in malignant processes has not been established. Methodology: Real Time PCR Thin prep-Endocervica l 03/19/2024 1:52 PM PRECISION THREAD GRINDER OPERATOR 03/20/2024 3:19 AM PRECISION THREAD GRINDER OPERATOR Homer Hernandez MD LAB CYTOLOGY ORDERABLES Fi nal Result [place] [address] [place] [address] [place] [address] [place] [address] * N. gonorrhoeae/C. trachomatis Amplification (03/19/2024 1:52 PM PRECISION THREAD GRINDER OPERATOR) C. trachomatis RNA NOT DETECTED NOT DETECTED [facility] N. gonorrhoeae RNA NOT DETECTED NOT DETECTED [facility] Comment [email or web address] Comment: The analytical performance characteristics of this assay, when used to test SurePath(TM) specimens have been determined by [facility]. The modifications have not been cleared or approved by the FDA. This assay has been validated pursuant to the CLIA regulations and is used for clinical purposes. For additional information, please refer to https://education.Apse/faq/XHX637 (This link is being provided for information/ educational purposes only.) 03/19/2024 1:52 PM PRECISION THREAD GRINDER OPERATOR 03/20/2024 3:19 AM PRECISION THREAD GRINDER OPERATOR Homer Hernandez MD LAB MICROBIOLOGY - GENERAL ORDERABLES Final Result [facility] [address] [address] [facility] [place] [address] * AL REMOVAL INTRAUTERINE DEVICE IUD (03/19/2024 1:00 PM PRECISION THREAD GRINDER OPERATOR) Narrative Homer Hernandez MD - 03/19/2024 1:00 PM PRECISION THREAD GRINDER OPERATOR Homer Hernandez MD 04/07/2024 10:11 PM IUD - Insertion/removal/reinsertion procedure. Performed by: Homer Hernandez MD Authorized by: Homer Hernandez MD Consent Given by: Patient Verbal consent obtained: Yes Written consent obtained: Yes Risks, alternatives, and patient questions discussed: Yes Removal: Removal with/due to: No complications Post-procedure: Patient tolerance: Patient tolerated the procedure well with no immediate complications Homer Hernandez MD IN CLINIC/BEDSIDE ORDERABL ES Final Result * Screening Mammogram Bilateral W Gregor (10/06/2023 9:31 AM CDT) Anatomical Region Laterality Modality Breast Bilateral Mammography Historical Provider IMG MAMMO PROCEDURES Yulissa l Result from Last 3 Months or Most Recently Relevant to Health Maintenance Insurance [facility] MEDICARE [facility] MEDICARE [facility] Advance Directives For more information, please contact: [phone] * Full Code (Latest Code Status on File) Date Activated Date Inactivated Comments 05/05/2020 11:29 AM 05/05/2020 4:03 PM * Full Code Date Activated Date Inactivated Comments 12/04/2018 7:42 AM 12/04/2018 2:07 PM * Full Code Date Activated Date Inactivated Comments 12/04/2018 7:41 AM 12/04/2018 7:42 AM Care Teams Configuration Engineer Relationship Specialty Start Date End Date Leonarda Ahn MD PCP - General Family Medicine 03/09/23
--- OUTSIDE RECORDS SUMMARY | 2024-05-21 17:04 | XMS_ITS | Clinical Summary ---
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 11/22/2019 ADAN JEAN MD Active Last Documented On 11/22/2019 10:28AM ; [facility] Note: Unchanged Bipolar Disorder Moderate 02/13/2019 ADAN JEAN MD Active Last Documented On 02/13/2019 1:27PM ; [facility] Note: Unchanged Schizophrenia, in Remission 12/26/2018 ADAN JEAN MD Active Last Documented On 12/26/2018 12:59PM ; [facility] Note: Unchanged Past Visits Onset Date Resolved Date Provider Condition Status Bipolar I Disorder Currently in Remission 12/26/2018 ADAN JEAN MD Active Last Documented On 12/26/2018 12:59PM ; [facility] Note: Unchanged Dysphagia 09/05/2018 ADAN JEAN MD Active Last Documented On 09/05/2018 1:26PM ; [facility] Note: Unchanged Peripheral Neuropathy Sensory 09/05/2018 ADAN JEAN MD Active Last Documented On 09/05/2018 1:26PM ; [facility] Note: Unchanged Gerd 02/14/2018 ADAN JEAN MD Active Last Documented On 02/14/2018 2:54PM ; [facility] Note: Unchanged Nicotine Dependence 02/14/2018 ADAN JEAN MD Active Last Documented On 02/14/2018 2:54PM ; [facility] Note: Unchanged Streptococcal Sore Throat 01/26/2015 TIA MICHAELS [employer] Active Last Documented On 01/26/2015 4:10PM ; [facility] Note: Unchanged Gastroenteritis Viral 01/26/2015 NOE MICHAELS [employer] Active Last Documented On 01/26/2015 4:10PM ; [facility] Note: Unchanged Carpal Tunnel Syndrome 04/18/2012 SHELLI JEAN MD Active Last Documented On 04/18/2012 1:29PM ; [facility] Note: Unchanged Irritable Bowel Syndrome 10/22/2009 ADAN JEAN MD Active Last Documented On 7 10:30AM ; [facility] Allergic Rhinitis 10/22/2009 ADAN JEAN MD Active Last Documented On 7 3:54PM ; [facility] Hyperlipidemia 10/22/2009 ADAN JEAN MD Act lokesh Last Documented On 7 10:30AM ; [facility] Cerebral Artery Aneurysm 10/22/2009 ADAN ODOM MD Active Last Documented On 0 1:19PM ; [facility] Note: Unchanged Plan of Treatment - Return to the clinic if condition worsens or new symptoms arise - Last Documented On 11/22/2019 11:42AM ; [facility] - Follow-up visit as needed - Last Documented On 11/22/2019 11:42AM ; [facility] Labs before next visit:N/A She is to follow up with her Psych and he needs to send me a note of her traetment plan if he wants me to prescribe her meds We will contact pharmacy and see if there is an actual problem there. - Last Documented On 11/22/2019 11:42AM ; [facility] Assessments Includes: Assessments from this encounter Findings - Classic migraine (with aura) - Last Documented On 11/22/2019 11:42AM ; [facility] - Schizophrenia in remission - Last Documented On 11/22/2019 11:42AM ; [facility] - Moderate bipolar disorder - Last Documented On 11/22/2019 11:42AM ; [facility] Medical Equipment - Implanted Devices Includes: Current Devices No Medical Equipment Recorded Medications Includes: Medications discussed during this encounter and other current Medications Discontinued / Stopped on this date SAV GUADALUPEP on 12/05/2018 buPROPion HCl ER (SR) 150 MG Oral Tablet Extended Release 12 Hour Provider: SAV ROMO S[employer] PORTER Diagnosis: Last Documented On 0 2:01PM By CANDY REYES LPN ; [facility] Macrobid 100 MG Oral Capsule Provider: SAV ROMO [employer] PORTER Diagnosis: Urinary tract in fection, site not specified Last Documented On 0 1:57PM By CANDY REYES LPN ; [facility] Amoxicillin 875MG Oral Tablet Provider: ADAN JEAN MD Diagnosis: Last Documented On 0 1:56PM By CANDY REYES LPN ; [facility] Nicoderm CQ 14MG/24HR Transdermal Patch 24 Hour Provider: ADAN JEAN MD Diagnosis: Nicotine depende nce, cigarettes, uncomplicated Last Documented On 0 1:57PM By CANDY REYES LPN ; [facility] Nicoderm CQ 21MG/24HR Transdermal Patch 24 Hour Provider: ADAN JEAN MD Diagnosis: Nicotine depende nce, cigarettes, uncomplicated Last Documented On 0 1:57PM By CANDY REYES LPN ; [facility] Nicoderm CQ 7MG/24HR Transdermal Patch 24 Hour Provider: ADAN JEAN MD Diagnosis: Nicotine depende nce, cigarettes, uncomplicated Last Documented On 0 1:57PM By CANDY REYES LPN ; [facility] Current Medications (continue as prescribed) Cetirizine HCl 10 MG Oral Tablet 03/09/2020 Provider : ADAN JEAN MD Diagnosis: TAKE 1 TABLET BY MOUTH DAILY Last Documented On 03/09/2020 1:46PM By ADAN JEAN MD ; [facility] Amitriptyline HCl 10 MG Oral Tablet 03/09/2020 Provi kevin: ADAN JEAN MD Diagnosis: TAKE 2 TABLETS BY MOUTH AT BEDTIME DIRECTED Last Documented On 03/09/2020 1:45PM By ADAN JEAN MD ; [facility] risperiDONE 0.5 MG Oral Tablet Disintegrating 11/29/19 20 Provider: ADAN JEAN MD Diagnosis: one tab po QD as needed for acute anxiety Last Documented On 11/29/2019 9:24AM By ADAN JEAN MD ; [facility] risperiDONE 0.5 MG Oral Tablet 11/29/2019 Provider: ADAN JEAN MD Diagnosis: 2 tabs QHS Last Documented On 11/29/2019 9:24AM By ADAN JEAN MD ; [facility] Melatonin 10 MG Oral Capsule 11/20/2019 Provider : Diagnosis: OTC Last Documented On 0 2:05PM By CANDY REYES LPN ; [facility] Cetirizine HCl 10 MG Oral Tablet 11/20/2019 Provider : Diagnosis: Last Documented On 0 2:01PM By CANDY REYES LPN ; [facility] Famotidine 40 MG Oral Tablet 11/20/2019 Provider: Diagnosis: Last Documented On 0 2:00PM By CANDY REYES LPN ; [facility] OXcarbazepine 300 MG Oral Tablet 10/23/2019 Provider : ADAN JENA MD Diagnosis: TAKE 3 TABLETS BY MOUTH AT BEDTIME Last Documented On 10/23/2019 1:40PM By ADAN JEAN MD ; [facility] Linzess 72MCG Oral Capsule 09/05/2018 Provider: Stephen JEAN MD Diagnosis: One tablet daily Last Documented On 09/05/2018 12:01PM By ADAN JEAN MD ; [facility] Omeprazole 20MG Oral Capsule , delayed-release 02/14/2018 Provider: ADAN JEAN MD Diagnosis: Gastro-esophagea l reflux disease with esophagitis One tablet daily Last Documented On 02/14/2018 2:59PM By ADAN JEAN MD ; [facility] Past Medications on file Amitriptyline HCl 10 MG Oral Tablet 05/29/2019 - 08/26 Provider: Diagnosis: TAKE TWO TABLETS AT HS Last Documented On 05/29/2019 11:13AM By BRAEDEN VALADEZ ; [facility] Macrobid 100 MG Oral Capsule 04/25/2019 - 05/02/2019 Provider: ADAN Dickerson Diagnosis: Urinary tract infection, site not specified One tablet twice a day Last Documented On 04/25/2019 9:59AM By ADAN JEAN MD ; [facility] Amitriptyline HCl 10 MG Oral Tablet 10/16/2018 - 10/11/2019 Provider: SAV ORR Diagnosis: TAKE 1 TABLET BY MOUTH EVERY NIGHT AT BEDTIME Last Documented On 10/16/2018 8:24AM By SAV ROMO CERTIFIED NURSE ; [facility] Sulfamethoxazole-Trimethopri m 400-80MG Oral Tablet 04/03/2018 - 04/10/2018 Provider: ADAN JEAN MD Diagnosis: One tablet twice a day Last Documented On 04/03/2018 1:10PM By ADAN JEAN MD ; [facility] Fluticasone Propionate 50MCG/ACT Nasal Suspension 01/20/2017 - 07/19/2017 Provider: JOE STOKES PA-C Diagnosis: 2 sprays each nostril once daily fill with gener ic Last Documented On 7 12:02PM By JOE STOKES PA-C ; [facility] Estradiol 0.5 MG Tablet 09/18/2015 - 09/12/2016 Provid er: CRISSY CUTLER Diagnosis: 1 daily Last Documented On 6 11:17AM By CRISSY CUTLER ; [facility] Medications Administered Includes: Administered Medications from this encounter No Administered Medications Recorded Vital Signs Includes: Vital Signs from this encounter Vital Name 11/20/2019 01:49P Blood Pressure Sitting R 140/80 BP Cuff Size Regular Pulse Rate-Sitting (bpm) 80 Pulse Rhythm Regular Respiration Rate (breaths/min) 20 Temp-Oral (F) 97.8 Height (in) 63.5 Weight (lb) 138 Body Mass Index (kg/m2) 24.1 Body Surface Area (m2) 1.7 Last Documented: On 11/20/2019 2:08PM ; [facility] Results Includes: Results discussed during this encounter No Results Recorded For Specified Dates History of Present Illness Includes: History of Present Illness from this encounter DAMI CHEW is a 54 year old female. Pt. states she has not worked since Early october due to stress, anxiety, bipolar disorder and migraines. She is seeing a Psych at [facility] Dr. Rutledge as well as a counselor. She states Dr. Rutledge wants me to refill her Psych meds but I have never recieved any note from him. She states her Rx's have been messed up by pharmacy because they are confusing Linn with her cousin. She takes the Risperidone tablets 2 at bedtime. She then uses the OCT once a day if needed for acute anxiety/stress episodes. She states she does not think she will go back to work and plans to go back on SSI. . - Medication list reviewed. Social History Description Last Updated Social history unchanged 11/22/2019 Last Documented On 0 11:42AM ; [facility] Smoking Status Unknown Procedures and Surgical History Includes: Procedures from this encounter Procedures Code Diagnosis Performing Provider Service L ocation Service Date continue current medication Last Documented On 0 1:55PM ; [facility] plan of care reviewed and agreed to by claudia goode Last Documented On 0 1:55PM ; [facility] Urged Exercise and Diet Last Documented On 0 1:55PM ; [facility] Continue current treatment plan Last Documented On 0 1:55PM ; [facility] Clinical summary provided to patient Last Documented On 0 1:55PM ; [facility] Medical History Includes: Medical History addressed during this encounter No Medical History Recorded Family History Includes: Family History addressed during this encounter No Family History Recorded Review of Systems Includes: Review of Systems from this encounter Systemic: Feeling poorly (malaise). No fever, no chills, and no recent weight change. Head: Headache. Eyes: No vision problems. Otolaryngeal: No earache and no sore throat. Cardiovascular: No chest pain or discomfort and no palpitations. Pulmonary: No dyspnea, no dyspnea, and no cough. Gastrointestinal: Normal appetite and no heartburn. No nausea, no vomiting, no abdominal pain, and no melena. No diarrhea and no constipation. Genitourinary: No hematuria and no increase in urinary frequency. No dysuria. Neurological: No dizziness, no vertigo, and no fainting. Psychological: Anxiety, depression, and sleep disturbances. Skin: No pruritus. No skin lesions and no rash. Mental Status Includes: Mental Status from this encounter Description Oriented to time, place, and person Anxiety Functional Status Includes: Functional Status from this encounter No Functional Status Recorded Physical Exam Includes: Physical Exam from this encounter Allergies Includes: Active Allergies Substance Type Reaction Onset Date Resolved Date Statu s TORADOL Allergy HALLUCINATIONS N ERVOUS FROM WASTE DOWN 09/10/2014 Active Last Documented On 7 10:17AM ; [facility] Stadol Allergy 09/10/2014 Active Last Documented On 7 10:17AM ; [facility] Note: NERVOUS, FEELS ANSY Nubain Allergy 09/10/2014 Active Last Documented On 7 10:17AM ; [facility] Note: CAUSES NERVOUSNESS Encounters Encounter Provider Location Date Check-In Time Check-Out Time Diagnosis PROBLEM VISIT ADAN JEAN MD [facility] 11/20/19 2:00PM 2:46PM Bipolar Disorder Moderate,Schi zophrenia, in Remission,Cla ssic Migraine with Aura Insurance Includes: Active Insurance Policies Plan Name Member ID Group # Subscriber Relationship Effect lokesh Dates 1 - [facility] [id number] [place] Clinical Notes Includes: Clinical Notes from this encounter No Clinical Notes Recorded
--- OUTSIDE RECORDS SUMMARY | 2024-05-21 17:04 | XMS_ITS | Clinical Summary ---
Author Organization [facility] Address [address] [place] [address] Phone Care Team Providers Care Branch Operations Specialist Name Role Phone ADAN JEAN MD Primary [...] Documented On 11/22/2019 10:28AM ; [facility] Note: Unchanged Bipolar Disorder Moderate 02/13/2019 ADAN JEAN MD Active Last Documented On 02/13/2019 1:27PM ; [facility] Note: Unchanged Bipolar I Disorder Currently in Remission 12/26/2018 ADAN JEAN MD Active Last Documented On 12/26/2018 12:59PM ; [facility] Note: Unchanged Schizophrenia, in Remission 12/26/2018 ADAN JEAN MD Active Last Documented On 12/26/2018 12:59PM ; [facility] Note: Unchanged Dysphagia 09/05/2018 ADAN JEAN MD Active Last Documented On 09/05/2018 1:26PM ; [facility] Note: Unchanged Peripheral Neuropathy Sensory 09/05/2018 ADAN JEAN MD Active Last Documented On 09/05/2018 1:26PM ; [facility] Note: Unchanged Gerd 02/14/2018 ADAN JEAN MD Active Last Documented On 02/14/2018 2:54PM ; [facility] Note: Unchanged Nicotine Dependence 02/14/2018 ADAN JEAN MD Active Last Documented On 02/14/2018 2:54PM ; [facility] Note: Unchanged Streptococcal Sore Throat 01/26/2015 TIA MICHAELS [employer] Active Last Documented On 01/26/2015 4:10PM ; [facility] Note: Unchanged Gastroenteritis Viral 01/26/[address] [facility] Active Last Documented On 01/26/2015 4:10PM ; [facility] Note: Unchanged Carpal Tunnel Syndrome 04/18/2012 SHELLI JEAN MD Active Last Documented On 04/18/2012 1:29PM ; [facility] Note: Unchanged Irritable Bowel Syndrome 10/22/2009 ADAN JEAN MD Active Last Documented On 7 10:30AM ; [facility] Allergic Rhinitis 10/22/2009 ADAN JEAN MD Active Last Documented On 7 3:54PM ; [facility] Hyperlipidemia 10/22/2009 ADAN JEAN MD Act lokesh Last Documented On 7 10:30AM ; [facility] Cerebral Artery Aneurysm 10/22/2009 ADAN ODOM MD Active Last Documented On 0 1:19PM ; [facility] Note: Unchanged Plan of Treatment No Plan of Treatment Recorded Assessments Includes: Assessments from this encounter No Assessments Recorded Medical Equipment - Implanted Devices Includes: Current Devices No Medical Equipment Recorded Medications Includes: Medications discussed during this encounter and other current Medications Discontinued / Stopped on this date ADAN JEAN MD on 09/30/2019 risperiDONE 0.5 MG Oral Tablet Disintegrating Provider: ADAN JEAN MD Diagnosis: Last Documented On 11/27/2019 2:45PM By SANDRA MOORE ; [facility] Current Medications (continue as prescribed) Cetirizine HCl 10 MG Oral Tablet 03/09/2020 Provider : ADAN JEAN MD Diagnosis: TAKE 1 TABLET BY MOUTH DAILY Last Documented On 03/09/2020 1:46PM By ADAN JEAN MD ; [facility] Amitriptyline HCl 10 MG Oral Tablet 03/09/2020 Provi kevin: ADAN JEAN MD Diagnosis: TAKE 2 TABLETS BY MOUTH AT BEDTIME DIRECTED Last Documented On 03/09/2020 1:45PM By ADAN JEAN MD ; [facility] risperiDONE 0.5 MG Oral Tablet Disintegrating 11/29/19 Provider: ADAN JEAN MD Diagnosis: one tab po QD as needed for acute anxiety Last Documented On 11/29/2019 9:24AM By ADAN JEAN MD ; [facility] risperiDONE 0.5 MG Oral Tablet 11/29/2019 Provider: ADAN JEAN MD Diagnosis: 2 tabs QHS Last Documented On 11/29/2019 9:24AM By ADAN JEAN MD ; [facility] Melatonin 10 MG Oral Capsule 11/20/2019 Provider : Diagnosis: OTC Last Documented On 0 2:05PM By CANDY REYES LPN ; [facility] Cetirizine HCl 10 MG Oral Tablet 11/20/2019 Provider : Diagnosis: Last Documented On 0 2:01PM By CANDY REYES LPN ; [facility] Famotidine 40 MG Oral Tablet 11/20/2019 Provider: Diagnosis: Last Documented On 0 2:00PM By CANDY REYES LPN ; [facility] OXcarbazepine 300 MG Oral Tablet 10/23/2019 Provider : ADAN JEAN MD Diagnosis: TAKE 3 TABLETS BY MOUTH AT BEDTIME Last Documented On 10/23/2019 1:40PM By ADAN JEAN MD ; [facility] Linzess 72MCG Oral Capsule 09/05/2018 Provider: Stephen JEAN MD Diagnosis: One tablet daily Last Documented On 09/05/2018 12:01PM By ADAN JEAN MD ; [facility] Omeprazole 20MG Oral Capsule , delayed-release 02/14/2018 Provider: ADAN JEAN MD Diagnosis: Gastro-esophagea l reflux disease with esophagitis One tablet daily Last Documented On 02/14/2018 2:59PM By ADAN JEAN MD ; [facility] Medications Administered Includes: Administered Medications [...] Documented On 7 10:17AM ; [facility] Stadol Allergy 09/10/2014 Active Last Documented On 7 10:17AM ; [facility] Note: NERVOUS, FEELS ANSY Nubain Allergy 09/10/2014 Active Last Documented On 7 10:17AM ; [facility] Note: CAUSES NERVOUSNESS Encounters Encounter Provider Location Date Check-In Time Check-Out Time Diagnosis * PHONE CALL ADAN JEAN MD 11/27/2019 2:52PM 11:59PM Insurance Includes: Active Insurance Policies Plan Name Member ID Group # Subscriber Relationship Effect lokesh Dates - [facility] [id number] LINN Y[place] f Clinical Notes Includes: Clinical Notes from this encounter No Clinical Notes Recorded
--- OUTSIDE RECORDS SUMMARY | 2024-05-21 17:04 | XMS_ITS | Clinical Summary ---
Author Organization [facility] Address [address] [place] [address] Phone Care Team Providers Care Catering Sales Manager Name Role Phone Alexi Toth MD Primary Care Provider [phone] Social History Tobacco Use Types Packs/Day Years Used Date Smoking Tobacco: Never Assessed Comments Unknown Sex and Gender Information Value Date Recorded Sex Assigned at Not on file Legal Sex Female 12:11 AM CDT Gender Identity Not on file Sexual Orientation Not on file Plan of Treatment Health Maintenance Due Date Last Done Comments Hepatitis C Virus (HCV) Screening 1965 TdaP Immunization 1965 Hepatitis B Immunization (1 of 3 - 19+ 3-dose series) 1984 Pap Smear 1986 Cervical Cancer Screening (CCS) 07/28/1995 HPV/Cotest 07/28/1995 Colonoscopy 2010 Colorectal Cancer Screening 2010 Cologuard 07/28/2015 Immunochemical Fecal Occult Blood 07/28/2015 Mammogram 07/28/2015 Pneumococcal Immunization (5 0+ years) (1 of 1 - PCV) 07/28/2015 Zoster Immunization (1 of 2) 07/28/2015 Influenza Immunization (#1) 2023 SARS-COV-2 Immunization ( - season) 2023 Respiratory Syncytial Virus (RSV) Immunization (Adult) (1 - 1-dose 75+ series) 2040 Meningococcal Immunization (ACWY) Aged Out No longer eligible based on patient's age to complete this topic Pneumococcal Immunization Combined Aged Out No longer eligible based on patient's age to complete this topic Rotavirus Immunization Aged Out No lo nger eligible based on patient's age to complete this topic Care Teams Catering Sales Manager Relationship Specialty Start Date End Date Alexi Toth MD [address] [place] [address] PCP - General Family Medicine 07/13/15
--- OUTSIDE RECORDS SUMMARY | 2024-05-21 17:04 | XMS_ITS | Clinical Summary ---
Author Organization [facility] Address [address] [place] [address] Care Team Providers Care Swing Ride Operator Name Role Phone Alexi Toth MD Primary Care Provider [phone] Source Comments [facility],non-owned Affiliates and Associated Physician Practices is amultiple site organization consisting of ambulatory clinics and hospital sitesin [place], [place], [place] and [place]. This disclosure is being madepursuant to the Care Everywhere program and may not contain all information available regarding this patient. Last updated 17.[facility] Active Problems Problem Noted Date Diagnosed Date Family history of breast cancer Family History Medical History Relation Name Comments Cancer - Colon Maternal Grandfather Cancer - Lung Maternal Grandfather Cancer - Lung Maternal Grandmother Cancer - Other Maternal Uncle 1 Dallas Espinosa multiple myeloma Cancer - Other Maternal Uncle 2 Juan Carlos Springer cholangio carcinoma Cancer - Skin, Non Melanoma Maternal Uncle 2 Juan Carlos M tl Cancer - Breast Mother Azuc[place] Rossp no genetic t esting Cancer - Ovarian Neg Hx Relation Name Status Comments Maternal Grandfather Maternal Grandmother Maternal Uncle 1 Dallas Sternes Alive Maternal Uncle 2 Juan Carlos Springer Alive Mother Azuc[place] Rossp Alive Social History Tobacco Use Types Packs/Day Years Used Date Smoking Tobacco: Never Assessed Comments Unknown Sex and Gender Information Value Date Recorded Sex Assigned at Not on file Legal Sex Female 7:54 AM BOILER WASHER Gender Identity Not on file Sexual Orientation Not on file Plan of Treatment Health Maintenance Due Date Last Done Comments COLOGUARD (AGES 45-75) - COL ON CA SCREENING 1965 COLON MONITORING 1965 COLONOSCOPY - COLON CA SCREENING 1965 CT COLONOGRAPHY - COLON CA SCREENING 1965 Colorectal Cancer Screening 1965 FIT - COLON CA SCREENING 1965 FLEX SIG - COLON CA SCREENING 1965 LIPID TESTING 1965 HIV SCREENING 1980 HEPATITIS C SCREENING 07/23/1983 DTAP/TDAP/TD VACCINES (1 - Tdap) 1984 HEPATITIS B VACCINE (1 of 3 - 19+ 3-dose series) 1984 PNEUMOCOCCAL VACCINE 50+ (1 of 1 - PCV) 07/28/2015 ZOSTER VACCINE (1 of 2) 07/28/2015 MAMMOGRAM 10/25/2015 10/24/2013, 02/24/2011, 12/07/2009 COVID-19 VACCINE (2023-2 5 season) 2023 DEPRESSION SCREENING 02/07/2024 INFLUENZA VACCINE (Season Ended) 2024 HIB VACCINE Aged Out No longer eligi ble based on patient's age to complete this topic HPV VACCINE Aged Out No longer eligi ble based on patient's age to complete this topic MENINGOCOCCAL (Group B) VACCINE SHARED DECISION-MAKING Aged Out No longer eligible based on patient's age to complete this topic MENINGOCOCCAL GROUPS A/C/Y/W VACCINE Aged Out No longer eligible b ased on patient's age to complete this topic Procedures Procedure Name Priority Date/Time Associated Diagnosis Comments MAMMO BILAT SCREENING Routine 10/24/2013 9:07 AM CDT Other screening mammogram from Last 3 Months or Most Recently Relevant to Health Maintenance Results * MAMMOGRAM DIGITAL SCREENING BILATERAL G0202 (10/24/2013 9:07 AM CDT) Anatomical Region Laterality Modality Breast Bilateral Mammography 10/30/2013 8:49 AM CDT Impressions 10/30/2013 8:50 AM CDT No mammographic evidence of malignancy. BI-RADS Category 1: Negative examination. Return for mammograms in one year or sooner if clinically indicated. Narrative 10/30/2013 8:50 AM CDT Bilateral mammography. Most recent comparison: 02/24/2011 History: Screening mammogram. Technique: Bilateral Breasts. Mammography views included: CC and MLO. Images interpreted with CAD. Findings: Breast composition: Scattered fibroglandular densities. No suspicious microcalcifications, masses or areas of architectural distortion. The fibroglandular pattern has remained stable. us Rossana Arrieta MD MAMMO ORDERABLES Final Resu lt from Last 3 Months or Most Recently Relevant to Health Maintenance Care Teams Swing Ride Operator Relationship Specialty Start Date End Date Alexi Toth MD [address] [place] [phone] PCP - General 02/24/11
--- OUTSIDE RECORDS SUMMARY | 2024-05-21 17:04 | XMS_ITS ---
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 11/22/2019 DAAN JEAN MD Active Last Documented On 11/22/2019 10:28AM ; [facility] Note: Unchanged Bipolar Disorder Moderate 02/13/2019 ADAN JEAN MD Active Last Documented On 02/13/2019 1:27PM ; [facility] Note: Unchanged Bipolar I Disorder Currently in Remission 12/26/2018 ADAN JEAN MD Active Last Documented On 12/26/2018 12:59PM ; [facility] Note: Unchanged Schizophrenia, in Remission 12/26/2018 ADAN JEAN MD Active Last Documented On 12/26/2018 12:59PM ; [facility] Note: Unchanged Dysphagia 09/05/2018 ADAN JEAN MD Active Last Documented On 09/05/2018 1:26PM ; [facility] Note: Unchanged Peripheral Neuropathy Sensory 09/05/2018 ADAN JEAN MD Active Last Documented On 09/05/2018 1:26PM ; [facility] Note: Unchanged Gerd 02/14/2018 ADAN JEAN MD Active Last Documented On 02/14/2018 2:54PM ; [facility] Note: Unchanged Nicotine Dependence 02/14/2018 ADAN JEAN MD Active Last Documented On 02/14/2018 2:54PM ; [facility] Note: Unchanged Streptococcal Sore Throat 01/26/2015 TIA MICHAELS TITLE OFFICER-BC Active Last Documented On 01/26/2015 4:10PM ; [facility] Note: Unchanged Gastroenteritis Viral 01/26/2015 NOE MICHAELS TITLE OFFICER-BC Active Last Documented On 01/26/2015 4:10PM ; [facility] Note: Unchanged Carpal Tunnel Syndrome 04/18/2012 SHELLI JEAN MD Active Last Documented On 04/18/2012 1:29PM ; [facility] Note: Unchanged Irritable Bowel Syndrome 10/22/2009 ADAN JEAN MD Active Last Documented On 7 10:30AM ; [facility] Allergic Rhinitis 10/22/2009 ADAN JEAN MD Active Last Documented On 7 3:54PM ; [facility] Hyperlipidemia 10/22/2009 ADAN JEAN MD Act lokesh Last Documented On 7 10:30AM ; [facility] Cerebral Artery Aneurysm 10/22/2009 ADAN ODOM MD Active Last Documented On 0 1:19PM ; [facility] Note: Unchanged Plan of Treatment Findings Encounter Date Ordered Transition in care, clinical summary provided * PHONE CALL with ADAN JEAN MD 12/04/2019 Last Documented On 0 11:32AM ; [facility] Requested request consultati on by specialist * PHONE CALL with ADAN JEAN MD 12/04/2019 Last Documented On 0 11:32AM ; [facility] Ordered follow-up visit as n eeded Labs before next visit:N/A She is to follow up with her Psych and he needs to send me a note of her traetment plan if he wants me to prescribe her meds We will contact pharmacy and see if there is an actual problem there. PROBLEM VISIT with ADAN JEAN MD 11/20/2019 Last Documented On 0 11:42AM ; [facility] Ordered return to the clinic if condition worsens or new symptoms arise PROBLEM VISIT with ADAN JEAN MD 11/20/2019 Last Documented On 0 11:42AM ; [facility] Ordered follow-up visit as d irected Increase respirdone to 0.5 mg Qam and .5 mg to 1mg at bedtime. Stop loraepam Will refer to Psych GENERAL OFFICE VISIT with ADAN JEAN MD 02/13/2019 Last Documented On 0 1:29PM ; [facility] Ordered return to the clinic if condition worsens or new symptoms arise GENERAL OFFICE VISIT with ADAN JEAN MD 02/13/2019 Last Documented On 0 1:29PM ; [facility] Ordered follow-up visit as d irected o/w 6 months Labs:Chem 12, CBC, TSH, B12, at [facility] in [place]. Refer to GI- Patient requests Dr. Avendaño Set up NCS at [facility] MED CHECK with ADAN JEAN MD 09/05/2018 Last Documented On 9 3:44PM ; [facility] Ordered return to the clinic if condition worsens or new symptoms arise MED CHECK with ADAN JEAN MD 09/05/2018 Last Documented On 9 3:44PM ; [facility] Ordered Transition in care, clinical summary provided MED CHECK with ADAN JEAN MD 09/05/2018 Last Documented On 9 3:44PM ; [facility] Requested request consultati on by specialist MED CHECK with ADAN JEAN MD 09/05/2018 Last Documented On 9 3:44PM ; [facility] Ordered follow-up visit as n eeded if no improvement Labs before next visit:N/A Nicoderm patch Start Biaxin Resume omeprazole GENERAL OFFICE VISIT with ADAN JEAN MD 02/14/2018 Last Documented On 9 3:03PM ; [facility] Ordered return to the clinic if condition worsens or new symptoms arise GENERAL OFFICE VISIT with ADAN JEAN MD 02/14/2018 Last Documented On 9 3:03PM ; [facility] Ordered patient will call fo r appointment as needed [facility]2017 Last Documented On 7 11:38AM ; [facility] Ordered referred to primary care physician [facility] Last Documented On 7 11:38AM ; [facility] Ordered return to the clinic if condition worsens or new symptoms arise WALK-IN CLINIC SICK VISIT with MARÍA Tapia [facility] 02/03/2017 Last Documented On 7 11:38AM ; [facility] Ordered Transition in care, clinical summary provided WALK-IN CLINIC SICK VISIT with MARÍA Tapia [facility] 02/03/2017 Last Documented On 7 11:38AM ; [facility] Ordered follow-up visit 6 mo nths Labs before next visit:Chem 12, Continue flonase and OTC claritin Urged to stop smoking Written order given to patient for mammogram. She goes to breast center in [place] GENERAL OFFICE VISIT with ADAN JEAN MD 01/11/2017 Last Documented On 7 12:40PM ; [facility] Ordered return to the clinic if condition worsens or new symptoms arise GENERAL OFFICE VISIT with ADAN JEAN MD 01/11/2017 Last Documented On 7 12:40PM ; [facility] Follow up: As needed SICK VISIT with SAV RAMIREZ [facility] 07/14/2016 Last Documented On 7 2:02PM ; [facility] Ordered return to the clinic if condition worsens or new symptoms arise SICK VISIT with SAV ROMO [facility] 07/14/2016 Last Documented On 7 2:02PM ; [facility] Ordered follow-up visit 6 mo nths, sooner as directed Labs now: Chem 12, CBC, Lipids, TSH Decrease caffeien use Order given for 48 hour holter monitor Will consider referral for stress test if symptoms persist Amoxil for 10 days Start flonase CHECK UP with ADAN JEAN MD 05/25/2016 Last Documented On 7 4:46PM ; [facility] Ordered return to the clinic if condition worsens or new symptoms arise CHECK UP with ADAN JEAN MD 05/25/2016 Last Documented On 7 4:46PM ; [facility] Ordered patient to call if camlile turcios develops PROBLEM VISIT with SUSANA JIN PA-C 07/10/2015 Last Documented On 6 11:46AM ; [facility] Ordered return to the clinic if condition worsens or new symptoms arise PROBLEM VISIT with SUSANA JIN PA-C 07/10/2015 Last Documented On 6 11:46AM ; [facility] Ordered follow-up visit 6 mo nths Labs before next visit:N/A Will obtain recent EKGs from [facility] along with EST pt. says was done a year or two ago. Urged to stop smoking. [facility] HOSPITAL FOLLOW UP EXAM with ADAN JEAN MD 09/10/2014 Last Documented On 5 1:07PM ; [facility] Ordered return to the clinic if condition worsens or new symptoms arise HOSPITAL FOLLOW UP EXAM with ADAN JEAN MD 09/10/2014 Last Documented On 5 1:07PM ; [facility] Ordered follow-up visit 6 mo nths Labs before next visit:N/A Refer to rosanna at [facility] GENERAL OFFICE VISIT with ADAN JEAN MD 05/21/2014 Last Documented On 5 5:13PM ; [facility] Ordered return to the clinic if condition worsens or new symptoms arise GENERAL OFFICE VISIT with ADAN JEAN MD 05/21/2014 Last Documented On 5 5:13PM ; [facility] Ordered Transition in care, clinical summary provided GENERAL OFFICE VISIT with ADAN JEAN MD 05/21/2014 Last Documented On 5 5:13PM ; [facility] Ordered follow-up visit 12 m onths Labs before next visit: N/A Continue omeprazole 20 mg QD F/U with surgeon as directed Follow up with neurosurgeons as directed 6 MONTH CHECK with ADAN JEAN MD 10/24/2012 Last Documented On 3 1:05PM ; [facility] Ordered return to the clinic if condition worsens or new symptoms arise 6 MONTH CHECK with ADAN JEAN MD 10/24/2012 Last Documented On 3 1:05PM ; [facility] Ordered follow-up visit 6 mo nths Labs before next visit: N/A Cleared for carpal tunnel surgery urged to stop smoking 6 MONTH CHECK with ADAN JEAN MD 04/18/2012 Last Documented On 3 1:30PM ; [facility] Ordered return to the clinic if condition worsens or new symptoms arise 6 MONTH CHECK with ADAN JEAN MD 04/18/2012 Last Documented On 3 1:30PM ; [facility] Ordered follow-up visit 6 mo nt Check Chem 12, lipids, CBC in 6 months She will follow up with her gyne re: bladder issues She will f/u at [place] re: carpal tunnel Advised to try nicotine replacement, either patches, gum or lozenges Will obtain recent test results from [place] 6 MONTH CHECK with ADAN JEAN MD 10/19/2011 Last Documented On 2 9:47AM ; [facility] Ordered return to the clinic if condition worsens or new symptoms arise 6 MONTH CHECK with ADAN JEAN MD 10/19/2011 Last Documented On 2 9:47AM ; [facility] Ordered follow-up visit as d irected after testing Set up NCS Check CXR GENERAL OFFICE VISIT with ADAN JEAN MD 06/29/2011 Last Documented On 2 5:53PM ; [facility] Ordered return to the clinic if condition worsens or new symptoms arise GENERAL OFFICE VISIT with ADAN JEAN MD 06/29/2011 Last Documented On 2 5:53PM ; [facility] Ordered follow-up visit 6 mo [facility] recommended wrist splint for left hand Written order given for lipids, chem 12, cbc, B12, Tsh 6 MONTH CHECK with ADAN JEAN MD 04/20/2011 Last Documented On 2 5:58PM ; [facility] Ordered return to the clinic if condition worsens or new symptoms arise 6 MONTH CHECK with ADAN JEAN MD 04/20/2011 Last Documented On 2 5:58PM ; [facility] Ordered follow-up visit months 6 MONTH CHECK wit meli CAAL PA-C 10/21/2010 Last Documented On 1 10:16AM ; [facility] Ordered return to the clinic if condition worsens or new symptoms arise 6 MONTH CHECK with KAITLIN CAAL PA-C 10/21/2010 Last Documented On 1 10:16AM ; [facility] 1. Push fluids 2. Rest 3. Co ntrol fever with Tylenol +/- Motrin if able to tolerate 4. OTC Mucinex and cough syrup if tolerated 5. Off work/Out of school:N/A 6. Follow up if no improvement in 3-5 days 6 MONTH CHECK with ADAN JEAN MD 04/20/2010 Last Documented On 1 12:10PM ; [facility] Ordered follow-up visit 6 months 6 MONTH CHECK w te ADAN JEAN MD 04/20/2010 Last Documented On 1 12:10PM ; [facility] Ordered return to the clinic if condition worsens or new symptoms arise 6 MONTH CHECK with ADAN JEAN MD 04/20/2010 Last Documented On 1 12:10PM ; [facility] Ordered follow-up visit months GENERAL OFFICE SIT with ADAN JEAN MD 10/22/2009 Last Documented On 0 1:19PM ; [facility] Ordered return to the clinic if condition worsens or new symptoms arise GENERAL OFFICE VISIT with ADAN JEAN MD 10/22/2009 Last Documented On 0 1:19PM ; [facility] 1. Push fluids 2. Rest 3. Co ntrol fever with Tylenol +/- Motrin if able to tolerate 4. OTC Mucinex and cough syrup if tolerated 5. Off work/Out of school:N/A 6. Follow up if no improvement in 3-5 days SICK VISIT with ADAN JEAN MD 05/28/2009 Last Documented On 0 12:49PM ; [facility] Referrals To Diagnosis ENT Specialist CHRONIC SINUSITI S NOS Last Documented On 1 4:25PM ; [facility] Other [address] [address] - Skin Sensation Disturb Note: Nerve conduction studi es B UE and B LE Last Documented On 2 4:43PM ; [facility] Other Note: Dr. Palmer as matt solange by pt. Last Documented On 2 4:43PM ; [facility] Neurosurgeon NONRUPT CEREBRAL ANEURYM Note: o eurosurgeon Clinic mayank Walker. Wherever she has gone before Last Documented On 5 8:37AM ; [facility] Amr Physician AHMAD A KARADAGHY Dysphagia, unspecified Note: Dysphagie, GERD and IB S Last Documented On 9 10:00AM ; [facility] Psychiatrist [address] [address] - Bipolar disorder, unspecified Note: Pt. requests Psych at [facility] or at least in [place] if possible. Last Documented On 0 3:48PM ; [facility] Neurologist [facility] [place] [address] - Migraine with aura, not intractable, w/o status migrainosus Last Documented On 4 2:16PM ; [facility] Instructions to patient Instructions for patient Last Documented On 7 10:33AM ; [facility] Education and Decision Aids were provided during visit for: Parent education about immun izations Discussed: ~Risks/Benefits of vaccine components discussed ~Discussed possible side effects of each component and when to call the office. ~ Last Documented On 7 11:52AM ; [facility] Parent education about immun izations VIS# [id number] ~Discussed:Y ~Risks/Benefits of vaccine components discussedY ~Discussed possible side effects of each component and when to call the office.Y Last Documented On 7 11:52AM ; [facility] Patient education about anti biotics: need to finish even if feeling better Last Documented On 9 9:39AM ; [facility] Assessments Includes: Assessments for all patient encounters Findings Encounter Date Cerebral artery aneurysm * PHONE CALL with SHELLI JEAN MD 12/04/2019 Last Documented On 0 11:32AM ; [facility] Classic migraine (with aura) without intractable migraine without status migrainosus * PHONE CALL with ADAN JEAN MD 12/04/2019 Last Documented On 0 11:32AM ; [facility] Classic migraine (with aura) PROBLEM VISIT with ADAN JEAN MD 11/20/2019 Last Documented On 0 11:42AM ; [facility] Moderate bipolar disorder PROBLEM VISIT with KELSEY JEAN MD 11/20/2019 Last Documented On 0 11:42AM ; [facility] Schizophrenia in remission PROBLEM VISIT with DIANE JEAN MD 11/20/2019 Last Documented On 0 11:42AM ; [facility] Urinary tract infection * PHONE CALL with MICAHEL JEAN MD 03/01/2019 Last Documented On 0 9:30AM ; [facility] Moderate bipolar disorder GENERAL OFFICE VISIT w te JEAN MD 02/13/2019 Last Documented On 0 1:29PM ; [facility] Secondary insomnia GENERAL OFFICE VISIT with KELSEY JEAN MD 02/13/2019 Last Documented On 0 1:29PM ; [facility] Bipolar I disorder, currentl y in remission [Patient Encounter] with ADAN JEAN MD 12/26/2018 Last Documented On 9 12:59PM ; [facility] Schizophrenia in remission [Patient Encounter] w te JEAN MD 12/26/2018 Last Documented On 9 12:59PM ; [facility] Urinary tract infection * PHONE CALL with ELLIOTT ORR 11/14/2018 Last Documented On 9 10:13AM ; [facility] Dysphagia MED CHECK with ADAN JEAN MD 09/05/2018 Last Documented On 9 3:44PM ; [facility] GERD MED CHECK with ADAN JEAN MD 09/05/2018 Last Documented On 9 3:44PM ; [facility] Irritable bowel syndrome MED CHECK with ADAN JEAN MD 09/05/2018 Last Documented On 9 3:44PM ; [facility] Peripheral sensory neuropathy MED CHECK with KELSEY JEAN MD 09/05/2018 Last Documented On 9 3:44PM ; [facility] Acute maxillary sinusitis GENERAL OFFICE VISIT w te JEAN MD 02/14/2018 Last Documented On 9 3:03PM ; [facility] GERD GENERAL OFFICE VISIT with MICHAEL JEAN MD 02/14/2018 Last Documented On 9 3:03PM ; [facility] Nicotine dependence GENERAL OFFICE VISIT with DIANE JEAN MD 02/14/2018 Last Documented On 9 3:03PM ; [facility] Influenza type A WALK-IN CLINIC SICK VISIT with MARÍA Willie KING TITLE OFFICER- 02/03/2017 Last Documented On 7 11:38AM ; [facility] Allergic rhinitis GENERAL OFFICE VISIT with BERONICA JEAN MD 01/11/2017 Last Documented On 7 12:40PM ; [facility] Hyperlipidemia GENERAL OFFICE VISIT with MICHAEL JEAN MD 01/11/2017 Last Documented On 7 12:40PM ; [facility] Irritable bowel syndrome GENERAL OFFICE VISIT wi ADAN JEAN MD 01/11/2017 Last Documented On 7 12:40PM ; [facility] Irritable bowel syndrome GENERAL OFFICE VISIT [facility] ADAN JEAN MD 01/11/2017 Last Documented On 7 12:40PM ; [facility] Irritant contact dermatitis SICK VISIT with SPIKE ROMO TITLE OFFICER 07/14/2016 Last Documented On 7 2:02PM ; [facility] Acute sinusitis CHECK UP with ADAN JEAN MD 05/25/2016 Last Documented On 7 4:46PM ; [facility] Allergic rhinitis CHECK UP with ADAN Dickerson 05/25/2016 Last Documented On 7 4:46PM ; [facility] Atypical chest pain CHECK UP with ADAN JEAN MD 05/25/2016 Last Documented On 7 4:46PM ; [facility] Palpitations CHECK UP with ADAN JEAN MD 05/25/2016 Last Documented On 7 4:46PM ; [facility] Dysuria PROBLEM VISIT with SUSANA PARIKH PA-C 07/10/2015 Last Documented On 6 11:46AM ; [facility] Lumbago PROBLEM VISIT with SUSANA JOSE-Gertrude 07/10/2015 Last Documented On 6 11:46AM ; [facility] Smoking Cessation PROBLEM VISIT with SUSANA JOSE-C 07/10/2015 Last Documented On 6 11:46AM ; [facility] Tobacco Abuse PROBLEM VISIT with SUSANA PARIKH PA-C 07/10/2015 Last Documented On 6 11:46AM ; [facility] Varicose veins of lower extremities PROB [place] VISIT with SUSANA JIN PA-C 07/10/2015 Last Documented On 6 11:46AM ; [facility] Discharge diagnosis of PRIMA RY CARE PROVIDER : DR. CHAMBERS SAME DAY SICK VISIT with TIA Mayank KAHISRRAEL [facility]- 01/26/2015 Last Documented On 5 4:12PM ; [facility] Streptococcal sore throat SAME DAY SICK VISIT with TIA A KAHRIG TITLE OFFICER-BC 01/26/2015 Last Documented On 5 4:12PM ; [facility] Viral gastroenteritis SAME DAY [facility]- 01/26/2015 Last Documented On 5 4:12PM ; [facility] Acute sinusitis HOSPITAL FOLLOW UP EXAM with KELSEY JEAN MD 09/10/2014 Last Documented On 5 1:07PM ; [facility] Cerebral artery aneurysm HOSPITAL FOLLOW UP EXAM with ADAN JEAN MD 09/10/2014 Last Documented On 5 1:07PM ; [facility] Dependence on nicotine in cigarettes HOS PITAL FOLLOW UP EXAM with ADAN JEAN MD 09/10/2014 Last Documented On 5 1:07PM ; [facility] Disturbance in skin or paresthesia HOSPI DECLAN FOLLOW UP EXAM with ADAN JEAN MD 09/10/2014 Last Documented On 5 1:07PM ; [facility] Cerebral artery aneurysm GENERAL OFFICE VISIT [facility] ADAN JEAN MD 05/21/2014 Last Documented On 5 5:13PM ; [facility] Carpal tunnel syndrome 6 MONTH CHECK with MICHAEL JEAN MD 10/24/2012 Last Documented On 3 1:05PM ; [facility] GERD 6 MONTH CHECK with ADAN Campos MD 10/24/2012 Last Documented On 3 1:05PM ; [facility] Irritable bowel syndrome 6 MONTH CHECK with BERONICA JEAN MD 10/24/2012 Last Documented On 3 1:05PM ; [facility] Carpal tunnel syndrome 6 MONTH CHECK with MICHAEL JEAN MD 04/18/2012 Last Documented On 3 1:30PM ; [facility] Cerebral artery aneurysm 6 MONTH CHECK with BERONICA JEAN MD 04/18/2012 Last Documented On 3 1:30PM ; [facility] Irritable bowel syndrome 6 MONTH CHECK with BERONICA JEAN MD 04/18/2012 Last Documented On 3 1:30PM ; [facility] Carpal tunnel syndrome 6 MONTH CHECK with MICHAEL JEAN MD 10/19/2011 Last Documented On 2 9:47AM ; [facility] Cerebral artery aneurysm 6 MONTH CHECK with BERONICA JEAN MD 10/19/2011 Last Documented On 2 9:47AM ; [facility] Hyperlipidemia 6 MONTH CHECK with ADAN Campos MD 10/19/2011 Last Documented On 2 9:47AM ; [facility] Irritable bowel syndrome 6 MONTH CHECK with BERONICA JEAN MD 10/19/2011 Last Documented On 2 9:47AM ; [facility] Tobacco Abuse 6 MONTH CHECK with ADAN Campos MD 10/19/2011 Last Documented On 2 9:47AM ; [facility] Cerebral artery aneurysm GENERAL OFFICE VISIT wi ADAN JEAN MD 06/29/2011 Last Documented On 2 5:53PM ; [facility] Cough GENERAL OFFICE VISIT with MICHALE JEAN MD 06/29/2011 Last Documented On 2 5:53PM ; [facility] Disturbance in skin or paresthesia GENER AL OFFICE VISIT with ADAN JEAN MD 06/29/2011 Last Documented On 2 5:53PM ; [facility] Carpal tunnel syndrome left 6 MONTH CHECK with Stephen JEAN MD 04/20/2011 Last Documented On 2 5:58PM ; [facility] Cerebral artery aneurysm 6 MONTH CHECK with BERONICA JEAN MD 04/20/2011 Last Documented On 2 5:58PM ; [facility] Fatigue 6 MONTH CHECK with ADAN Campos MD 04/20/2011 Last Documented On 2 5:58PM ; [facility] Hyperlipidemia 6 MONTH CHECK with ADAN Campos MD 04/20/2011 Last Documented On 2 5:58PM ; [facility] Irritable bowel syndrome 6 MONTH CHECK with BERONICA JEAN MD 04/20/2011 Last Documented On 2 5:58PM ; [facility] Allergic rhinitis 6 MONTH CHECK with KAITLIN DE LUNAPREDITH PA-C 10/21/2010 Last Documented On 1 10:16AM ; [facility] Cerebral artery aneurysm 6 MONTH CHECK with GARRY STEPHANIE Dickerson ZIPPRICH PA-C 10/21/2010 Last Documented On 1 10:16AM ; [facility] Hyperlipidemia 6 MONTH CHECK with KAITLIN LARSENCH PA-C 10/21/2010 Last Documented On 1 10:16AM ; [facility] Irritable bowel syndrome 6 MONTH CHECK with GARRY SSA Tuan ZIPPRICH PA-C 10/21/2010 Last Documented On 1 10:16AM ; [facility] Chronic sinusitis * PHONE CALL with DARREN JOSE-C 06/24/2010 Last Documented On 1 11:24AM ; [facility] Chronic sinusitis GENERAL OFFICE VISIT with ARIK DORANTESC 06/14/2010 Last Documented On 1 12:38PM ; [facility] Tooth Abscess GENERAL OFFICE VISIT with TERRI VALENTEC 06/14/2010 Last Documented On 1 12:38PM ; [facility] Acute sinusitis 6 MONTH CHECK with ADAN Campos MD 04/20/2010 Last Documented On 1 12:10PM ; [facility] Cerebral artery aneurysm 6 MONTH CHECK with BERONICA JEAN MD 04/20/2010 Last Documented On 1 12:10PM ; [facility] Hyperlipidemia 6 MONTH CHECK with ADAN Campos MD 04/20/2010 Last Documented On 1 12:10PM ; [facility] Irritable bowel syndrome 6 MONTH CHECK with BERONICA JEAN MD 04/20/2010 Last Documented On 1 12:10PM ; [facility] Allergic rhinitis GENERAL OFFICE VISIT with BERONICA JEAN MD 10/22/2009 Last Documented On 0 1:19PM ; [facility] Cerebral artery aneurysm GENERAL OFFICE VISIT [facility] ADAN JEAN MD 10/22/2009 Last Documented On 0 1:19PM ; [facility] Hyperlipidemia GENERAL OFFICE VISIT with MICHAEL JEAN MD 10/22/2009 Last Documented On 0 1:19PM ; [facility] Irritable bowel syndrome GENERAL OFFICE VISIT [facility] ADAN JEAN MD 10/22/2009 Last Documented On 0 1:19PM ; [facility] Acute sinusitis SICK VISIT with ADAN Dickerson 05/28/2009 Last Documented On 0 12:49PM ; [facility] EXCESSIVE THIRST SICK VISIT with ADAN JEAN MD 05/28/2009 Last Documented On 0 12:49PM ; [facility] Hyperlipidemia SICK VISIT with ADAN Dickerson 05/28/2009 Last Documented On 0 12:49PM ; [facility] Acute sinusitis SICK VISIT with WALKER ORR-Gertrude 01/24/2009 Last Documented On 9 9:41AM ; [facility] Instructions Includes: Instructions for all patient encounters Instructions to patient Instructions for patient Last Documented On 7 10:33AM ; [facility] Education and Decision Aids were provided during visit for: Parent education about immun izations Discussed: ~Risks/Benefits of vaccine components discussed ~Discussed possible side effects of each component and when to call the office. ~ Last Documented On 7 11:52AM ; [facility] Parent education about immun izations VIS# [id number] ~Discussed:Y ~Risks/Benefits of vaccine components discussedY ~Discussed possible side effects of each component and when to call the office.Y Last Documented On 7 11:52AM ; [facility] Patient education about anti biotics: need to finish even if feeling better Last Documented On 9 9:39AM ; [facility] Medical Equipment - Implanted Devices Includes: Current and historical Devices No Medical Equipment Recorded Medications Includes: Current and historical Medications Current Medications (continue as prescribed) Cetirizine HCl 10 MG Oral Tablet 03/09/2020 Provider : ADAN JEAN MD Diagnosis: TAKE 1 TABLET BY MOUTH DAILY Last Documented On 03/09/2020 1:46PM By ADAN JEAN MD ; [facility] Amitriptyline HCl 10 MG Oral Tablet 03/09/2020 Provi kevin: ADAN JEAN MD Diagnosis: TAKE 2 TABLETS BY MOUTH AT BEDTIME DIRECTED Last Documented On 03/09/2020 1:45PM By ADAN JEAN MD ; [facility] risperiDONE 0.5 MG Oral Tablet Disintegrating 11/29/19 Provider: ADAN JEAN MD Diagnosis: one tab po QD as needed for acute anxiety Last Documented On 11/29/2019 9:24AM By ADAN JEAN MD ; [facility] risperiDONE 0.5 MG Oral Tablet 11/29/2019 Provider: ADAN JEAN MD Diagnosis: 2 tabs QHS Last Documented On 11/29/2019 9:24AM By ADAN JEAN MD ; [facility] Melatonin 10 MG Oral Capsule 11/20/2019 Provider : Diagnosis: OTC Last Documented On 0 2:05PM By CANDY REYES LPN ; [facility] Cetirizine HCl 10 MG Oral Tablet 11/20/2019 Provider : Diagnosis: Last Documented On 0 2:01PM By CANDY REYES LPN ; [facility] Famotidine 40 MG Oral Tablet 11/20/2019 Provider: Diagnosis: Last Documented On 0 2:00PM By CANDY REYES LPN ; [facility] OXcarbazepine 300 MG Oral Tablet 10/23/2019 Provider : ADAN JEAN MD Diagnosis: TAKE 3 TABLETS BY MOUTH AT BEDTIME Last Documented On 10/23/2019 1:40PM By ADAN JEAN MD ; [facility] Linzess 72MCG Oral Capsule 09/05/2018 Provider: Stephen JEAN MD Diagnosis: One tablet daily Last Documented On 09/05/2018 12:01PM By ADAN JEAN MD ; [facility] Omeprazole 20MG Oral Capsule , delayed-release 02/14/2018 Provider: ADAN JEAN MD Diagnosis: Gastro-esophagea l reflux disease with esophagitis One tablet daily Last Documented On 02/14/2018 2:59PM By ADAN JEAN MD ; [facility] Past Medications on file risperiDONE 0.5 MG Oral Tabl et Disintegrating 09/30/2019 - 11/27/2019 Provider: ADAN Dickerson Diagnosis: 1-2 tabs po QHS Last Documented On 11/27/2019 2:45PM By SANDRA MOORE ; [facility] Amitriptyline HCl 10 MG Oral Tablet 05/29/2019 - 03/09/2020 Provider: ADAN Dickerson Diagnosis: as directed TAKE TWO TABLETS AT HS Last Documented On 03/09/2020 1:44PM By ADAN JEAN MD ; [facility] Amitriptyline HCl 10 MG Oral Tablet 05/29/2019 - 08/26 Provider: Diagnosis: TAKE TWO TABLETS AT HS Last Documented On 05/29/2019 11:13AM By BRAEDEN VALADEZ ; [facility] Macrobid 100 MG Oral Capsule 04/25/2019 - 05/02/2019 Provider: ADAN Dickerson Diagnosis: Urinary tract infection, site not specified One tablet twice a day Last Documented On 04/25/2019 9:59AM By ADAN JEAN MD ; [facility] Macrobid 100 MG Oral Capsule 03/01/2019 - 04/25/2019 Provider: SAV ROMO TITLE OFFICER Diagnosis: Urinary tract infection, site not specified One tablet twice a day Last Documented On 04/25/2019 9:51AM By ADAN JEAN MD ; [facility] OXcarbazepine 300 MG Oral Tablet 02/25/2019 - 10/23/2019 Provider: SAV ROMO TITLE OFFICER Diagnosis: TAKE 3 TABLETS BY MOUTH AT BEDTIME Last Documented On 10/23/2019 1:26PM By ADAN JEAN MD ; [facility] RisperDAL 0.5 MG Oral Tablet 12/05/2018 - 09/30/2019 Camille teixeira: ADAN JEAN MD Diagnosis: TAKE ONE TABLET BY MOUTH JEAN RY NIGHT AT BEDTIME. MAY TAKE A SECOND TABLET IF NEEDED Last Documented On 09/30/2019 3:12PM By ADAN JEAN MD ; [facility] buPROPion HCl ER (SR) 150 MG Oral Tablet Extended Release 12 Hour 12/05/2018 - 11/20/2019 Provider: SAV ROMO TITLE OFFICER Diagnosis: One tablet twice a day Last Documented On 0 2:01PM By CANDY REYES LPN ; [facility] Macrobid 100 MG Oral Capsule 11/14/2018 - 11/20/2019 Provider: SAV ROMO TITLE OFFICER Diagnosis: Urinary tract infection, site not specified One tablet twice a day Last Documented On 0 1:57PM By CANDY REYES LPN ; [facility] ZyrTEC Allergy 10 MG Oral Tablet 10/24/2018 - 03/09/19 21 Provider: ADAN JEAN MD Diagnosis: 1 daily Last Documented On 03/09/2020 1:45PM By ADAN JEAN MD ; [facility] Amitriptyline HCl 10 MG Oral Tablet 10/16/2018 - 10/11/2019 Provider: SAV ROMO TITLE OFFICER Diagnosis: TAKE 1 TABLET BY MOUTH EVERY NIGHT AT BEDTIME Last Documented On 10/16/2018 8:24AM By SAV ROMO RN [facility] ; [facility] OXcarbazepine 300MG Oral Tablet 09/18/2018 - 0 Provider: SAV ROMO TITLE OFFICER Diagnosis: TAKE 3 TABLETS BY MOUTH AT BEDTIME Last Documented On 02/25/2019 8:31AM By SAV ROMO RN [facility] ; [facility] RisperDAL 0.5MG Oral Tablet 09/05/2018 - 12/05/2018 Pr ovider: ADAN JEAN MD Diagnosis: TAKE ONE TABLET BY MOUTH JEAN RY NIGHT AT BEDTIME. MAY TAKE A SECOND TABLET IF NEEDED Last Documented On 12/05/2018 1:01PM By ADAN JEAN MD ; [facility] buPROPion HCl ER (SR) 150MG Oral Tablet Extended Release 12 Hour 09/05/2018 - 02/13/2019 Provider: Diagnosis: Last Documented On 0 11:44AM By CANDY REYES LPN ; [facility] Linzess 72MCG Oral Capsule 09/05/2018 - 10/31/2019 Pro vider: Diagnosis: Last Documented On 10/31/2019 3:40PM By SANDRA MOORE ; [facility] buPROPion HCl ER (SR) 150MG Oral Tablet Extended Release 12 Hour 09/05/2018 - 12/05/2018 Provider: BERONICA JEAN MD Diagnosis: One tablet daily Last Documented On 12/05/2018 8:14AM By SAV ROMO RN [facility] ; [facility] OXcarbazepine 300MG Oral Tablet 08/21/2018 - 9 Provider: SAV ORR Diagnosis: TAKE 3 TABLETS BY MOUTH AT BEDTIME, needs appt Last Documented On 09/18/2018 8:04AM By SAV ROMO RN [facility] ; [facility] Amoxicillin 875MG Oral Tablet 06/28/2018 - 11/20/2019 Provider: ADAN JEAN MD Diagnosis: One tablet twice a day Last Documented On 0 1:56PM By CANDY REYES LPN ; [facility] Amitriptyline HCl 10MG Oral Tablet 04/23/2018 - 10/16/2018 Provider: SAV ORR Diagnosis: TAKE 1 TABLET BY MOUTH EVERY NIGHT AT BEDTIME Last Documented On 10/16/2018 8:08AM By SAV ROMO RN [facility] ; [facility] Sulfamethoxazole-Trimethopri m 400-80MG Oral Tablet 04/03/2018 - 04/10/2018 Provider: ADAN JEAN MD Diagnosis: One tablet twice a day Last Documented On 04/03/2018 1:10PM By ADAN JEAN MD ; [facility] OXcarbazepine 300MG Oral Tablet 02/19/2018 - 9 Provider: SAV GUADALUPEP Diagnosis: TAKE 3 TABLETS BY MOUTH AT BEDTIME Last Documented On 08/21/2018 8:30AM By SAV ROMO RN [facility] ; [facility] Chantix Continuing Month Andrea 1MG Oral Tablet 02/16/2018 - 10/31/2019 Provider: ADAN Dickerson Diagnosis: as directed Last Documented On 10/31/2019 3:39PM By SANDRA MOORE ; [facility] Chantix Starting Month Andrea 0 .5 MG X 11 &1 MG X 42 Oral Tablet 02/16/2018 - 10/31/2019 Provider: ADAN JEAN MD Diagnosis: as directed Last Documented On 10/31/2019 3:39PM By SANDRA MOORE ; [facility] Nicoderm CQ 14MG/24HR Transdermal Patch 24 Hour 02/14/2018 - 11/20/2019 Provider: ADAN JEAN MD Diagnosis: Nicotine depende nce, cigarettes, uncomplicated change every 24 hours Last Documented On 0 1:57PM By CANDY REYES LPN ; [facility] Nicoderm CQ 21MG/24HR Transdermal Patch 24 Hour 02/14/2018 - 11/20/2019 Provider: ADAN JEAN MD Diagnosis: Nicotine depende nce, cigarettes, uncomplicated change patch q 24 hours Last Documented On 0 1:57PM By CANDY REYES LPN ; [facility] Biaxin 500MG Oral Tablet 02/14/2018 - 11/22/2019 Provider: ADAN Dickerson Diagnosis: Acute maxillary sinusitis, unspecified One tablet twice a day Last Documented On 0 1:46PM By CANDY REYES LPN ; [facility] Nicoderm CQ 7MG/24HR Transdermal Patch 24 Hour 02/14/2018 - 11/20/2019 Provider: ADAN JEAN MD Diagnosis: Nicotine depende nce, cigarettes, uncomplicated change every 24 hours Last Documented On 0 1:57PM By CANDY REYES LPN ; [facility] OXcarbazepine 300MG Oral Tablet 01/22/2018 - 9 Provider: SAV ROMO TITLE OFFICER Diagnosis: TAKE 3 TABLETS BY MOUTH AT BEDTIME, needs appt Last Documented On 02/19/2018 8:20AM By SAV ROMO NP ; [facility] Amitriptyline HCl 10MG Oral Tablet 01/22/2018 - 04/23/2018 Provider: SAV ROMO TITLE OFFICER Diagnosis: TAKE 1 TABLET BY MOUTH EVERY NIGHT AT BEDTIME, needs appt Last Documented On 04/23/2018 8:21AM By SAV ROMO NP ; [facility] Amoxicillin 875MG Oral Tablet 01/22/2018 - 06/28/2018 Provider: ADAN JEAN MD Diagnosis: One tablet twice a day Last Documented On 06/28/2018 1:19PM By ADAN JEAN MD ; [facility] BuPROPion HCl ER (Smoking De t) 150MG Oral Tablet Extended Release 12 Hour 11/15/2017 - 01/05/2018 Provider: ADAN Dickerson Diagnosis: One tablet twice a day Last Documented On 8 1:43PM By CANDY REYES LPN ; [facility] RisperDAL 0.5MG Oral Tablet 08/22/2017 - 09/05/2018 Pr ovider: ADAN JEAN MD Diagnosis: TAKE ONE TABLET BY MOUTH JEAN RY NIGHT AT BEDTIME. MAY TAKE A SECOND TABLET IF NEEDED Last Documented On 09/05/2018 10:38AM By ADAN JEAN MD ; [facility] OXcarbazepine 300MG Oral Tablet 07/25/2017 - 8 Provider: SAV ROMO TITLE OFFICER Diagnosis: TAKE 3 TABLETS BY MOUTH AT BEDTIME Last Documented On 01/22/2018 9:06AM By SAV ROMO RN [facility] ; [facility] Amoxicillin 875MG Oral Tablet 07/19/2017 - 01/22/2018 Provider: ADAN JEAN MD Diagnosis: One tablet twice a day Last Documented On 01/22/2018 1:17PM By ADAN JEAN MD ; [facility] ZyrTEC Allergy 10MG Oral Tablet 07/19/2017 - 9 Provider: ADAN JEAN MD Diagnosis: 1 daily Last Documented On 10/24/2018 9:26AM By ADAN JEAN MD ; [facility] Amoxicillin 875MG Oral Tablet 03/02/2017 - 07/19/2017 Provider: ADAN JEAN MD Diagnosis: One tablet twice a day Last Documented On 07/19/2017 10:59AM By ADAN JAEN MD ; [facility] Amitriptyline HCl 10MG Oral Tablet 02/07/2017 - 01/22/2018 Provider: SAV ROMO TITLE OFFICER Diagnosis: TAKE 1 TABLET BY MOUTH EVERY NIGHT AT BEDTIME Last Documented On 01/22/2018 9:05AM By SAV ROMO RN [facility] ; [facility] Azithromycin 250MG Oral Tablet 02/07/2017 - 02/13/2019 Provider: ADAN JEAN MD Diagnosis: 2 tabs on day one then one tab on days 2-5 Last Documented On 0 11:43AM By CANDY REYES LPN ; [facility] Oseltamivir Phosphate 75MG Oral Capsule 02/03/2017 - 01/05/2018 Provider: MARÍA MALIK TITLE OFFICER- Diagnosis: Flu due to ident novel influenza A virus w oth manifest 1 CAPSULE TWO TIMES A DAY Last Documented On 8 1:43PM By CANDY REYES LPN ; [facility] OXcarbazepine 300MG Oral Tablet 01/25/2017 - 8 Provider: SAV ROMO TITLE OFFICER Diagnosis: TAKE 3 TABLETS BY MOUTH AT BEDTIME Last Documented On 07/25/2017 8:22AM By SAV ROMO RN [facility] ; [facility] Fluticasone Propionate 50MCG/ACT Nasal Suspension 01/20/2017 - 07/19/2017 Provider: JOE STOKES PA-C Diagnosis: 2 sprays each nostril once daily fill with gener ic Last Documented On 7 12:02PM By JOE STOKES PA-C ; [facility] Linzess 145MCG Oral Capsule, conventional 01/11/2017 - 02/13/2019 Provider: ADAN Dickerson Diagnosis: One tablet daily Last Documented On 0 11:44AM By CANDY REYES LPN ; [facility] OXcarbazepine 300MG Oral Tablet 12/26/2016 - 7 Provider: SAV ROMO TITLE OFFICER Diagnosis: TAKE 3 TABLETS BY MOUTH AT BEDTIME Last Documented On 01/25/2017 8:25AM By SAV ROMO NP ; [facility] Amitriptyline HCl 10MG Oral Tablet 11/04/2016 - 02/07/2017 Provider: SAV ROMO TITLE OFFICER Diagnosis: TAKE 1 TABLET BY MOUTH EVERY NIGHT AT BEDTIME Last Documented On 02/07/2017 8:12AM By SAV ROMO NP ; [facility] Medrol 4MG Oral Tablet Therapy Pack 07/14/2016 - 02/14/2018 Provider: SAV ROMO TITLE OFFICER Diagnosis: Irritant contact dermatitis, unspecified cause as directed Last Documented On 9 2:10PM By CANDY REYES LPN ; [facility] OXcarbazepine 300MG Oral Tablet 07/06/2016 - 7 Provider: SAV ROMO TITLE OFFICER Diagnosis: TAKE 3 TABLETS BY MOUTH AT BEDTIME Last Documented On 12/26/2016 8:21AM By SAV ROMO NP ; [facility] OXcarbazepine 300MG Oral Tablet 06/02/2016 - 07/06/2016 Provider: CRISSY LI TITLE OFFICER-BC Diagnosis: TAKE 3 TABLETS BY MOUTH AT BEDTIME Last Documented On 07/06/2016 10:32AM By SAV ROMO RN [facility] ; [facility] Linzess 145MCG Oral Capsule 05/25/2016 - 02/14/2018 Pr ovider: Diagnosis: Last Documented On 9 2:09PM By CANDY REYES LPN ; [facility] Fluticasone Propionate 50MCG /ACT Nasal Suspension 05/25/2016 - 01/20/2017 Provider: ADAN Dickerson Diagnosis: 2 sprays each nostril once daily fill with gener ic Last Documented On 7 11:56AM By JOE STOKES PA-C ; [facility] Amoxicillin 875MG Oral Tablet 05/25/2016 - 03/02/2017 Provider: ADAN JEAN MD Diagnosis: One tablet twice a day Last Documented On 03/02/2017 11:06AM By ADAN JEAN MD ; [facility] RisperDAL 0.5MG Oral Tablet 05/25/2016 - 08/22/2017 Pr ovider: ADAN JEAN MD Diagnosis: TAKE 1 TABLET BY MOUTH EVERY NIGHT AT BEDTIME. MAY TAKE A SECOND TABLET IF NEEDED. Last Documented On 08/22/2017 8:55AM By ADAN JEAN MD ; [facility] Amoxicillin 875MG Oral Tablet 05/12/2016 - 05/25/2016 Provider: ADAN JEAN MD Diagnosis: One tablet twice a day Last Documented On 05/25/2016 3:54PM By ADAN JEAN MD ; [facility] OXcarbazepine 300MG Oral Tablet 05/05/2016 - 06/02/2016 Provider: CRISSY GUADALUPEP- Diagnosis: TAKE 3 TABLETS BY MOUTH AT BEDTIME Last Documented On 7 9:30AM By CRISSY GUADALUPEP-BC ; [facility] Azithromycin 250MG Oral Tablet 04/20/2016 - 02/07/2017 Provider: ADAN JEAN MD Diagnosis: 2 tabs on day one then one tab on days 2-5 Last Documented On 02/07/2017 12:56PM By ADAN JEAN MD ; [facility] OXcarbazepine 300MG Oral Tablet 04/04/2016 - 05/05/2016 Provider: CRISSY LI TITLE OFFICER-BC Diagnosis: TAKE 3 TABLETS BY MOUTH AT BEDTIME Last Documented On 7 10:54AM By CRISSY CELESTIN TITLE OFFICER-BC ; [facility] OXcarbazepine 300MG Oral Tablet 03/03/2016 - 04/04/2016 Provider: CRISSY LI TITLE OFFICER-BC Diagnosis: TAKE 3 TABLETS BY MOUTH AT BEDTIME Last Documented On 7 2:56PM By CRISSY CELESTIN [facility]-BC ; [facility] OXcarbazepine 300 MG Tablet 02/04/2016 - 03/03/2016 Pr ovider: CRISSY CELESTIN TITLE OFFICER-BC Diagnosis: TAKE 3 TABLETS BY MOUTH AT BEDTIME Last Documented On 7 8:37AM By CRISSY CELESTIN [facility]-BC ; [facility] OXcarbazepine 300 MG Tablet 01/07/2016 - 02/04/2016 Pr ovider: CRISSY CELESTIN TITLE OFFICER-BC Diagnosis: TAKE 3 TABLETS BY MOUTH AT BEDTIME Last Documented On 6 9:55AM By CRISSY CELESTIN [facility]-BC ; [facility] Chantix Starting Month Andrea 0.5 MG X 11 & 1 MG X 42 Tablet 11/27/2015 - 01/11/2017 Provider: KIRAN ORR-C Diagnosis: Nicotine depende nce, unspecified, uncomplicated as directed Last Documented On 7 10:13AM By CANDY REYES LPN ; [facility] OXcarbazepine 300 MG Tablet 10/05/2015 - 02/14/2018 Pr ovider: CRISSY CELESTIN TITLE OFFICER-BC Diagnosis: TAKE 3 TABLETS BY MOUTH AT BEDTIME Last Documented On 9 2:10PM By CANDY REYES LPN ; [facility] Estradiol 0.5 MG Tablet 09/18/2015 - 09/12/2016 Provid er: CRISSY CELESTIN TITLE OFFICER-BC Diagnosis: 1 daily Last Documented On 6 11:17AM By CRISSY CELESTIN TITLE OFFICER-BC ; [facility] Azithromycin 250 MG Tablet 09/18/2015 - 04/20/2016 Pro vider: CRISSY CELESTIN TITLE OFFICER-BC Diagnosis: 2 tabs on day one then one tab on days 2-5 Last Documented On 04/20/2016 2:24PM By ADAN JEAN MD ; [facility] Amitriptyline HCl 10 MG Tablet 09/18/2015 - 11/04/2016 Provider: CRISSY LI TITLE OFFICER-BC Diagnosis: 1 every bedtime Last Documented On 11/04/2016 9:31AM By SAV ROMO NP ; [facility] RisperDAL 0.5 MG Tablet 09/18/2015 - 05/25/2016 Provid er: CRISSY CELESTIN TITLE OFFICER-BC Diagnosis: TAKE 1 TABLET BY MOUTH EVERY NIGHT AT BEDTIME. MAY TAKE A SECOND TABLET IF NEEDED. Last Documented On 05/25/2016 3:52PM By ADAN JEAN MD ; [facility] OXcarbazepine 300 MG Tablet 09/18/2015 - 01/07/2016 Pr ovider: CRISSY CELESTIN TITLE OFFICER-BC Diagnosis: TAKE THREE TABLETS BY MOUTH AT BEDTIME Last Documented On 6 9:56AM By CRISSY CELESTIN TITLE OFFICER-BC ; [facility] PriLOSEC 20 MG Capsule Delayed Release 09/18/2015 - 02/13/2019 Provider: CRISSY LI TITLE OFFICER-BC Diagnosis: 1 capsule daily fill with generic Last Documented On 0 11:44AM By CANDY REYES LPN ; [facility] Nicoderm CQ 7 MG/24HR Patch 24 Hour 07/10/2015 - 01/22/2018 Provider: SUSANA JIN PA-C Diagnosis: Nicotine depende nce, unspecified, uncomplicated as directed - apply 1 patch QD x2 weeks - start on quit day Last Documented On 8 10:01AM By CANDY REYES LPN ; [facility] Cipro 250 MG Tablet 07/10/2015 - 11/14/2017 Provider: SUSANA JIN PA-C Diagnosis: Dysuria One tablet twice a day Last Documented On 8 2:24PM By CANDY REYES LPN ; [facility] Tolterodine Tartrate 2 MG Tablet 07/10/2015 - 01/06/20 18 Provider: Diagnosis: Last Documented On 8 1:43PM By CANDY REYES LPN ; [facility] OXcarbazepine 300 MG Tablet 07/08/2015 - 09/18/2015 Pr ovider: CRISSY CELESTIN [facility] Diagnosis: TAKE THREE TABLETS BY MOUTH AT BEDTIME Last Documented On 6 11:13AM By CRISSY CELESTIN [facility] ; [facility] RisperDAL 0.5 MG Tablet 07/07/2015 - 09/18/2015 Provid er: ADAN JEAN MD Diagnosis: TAKE 1 TABLET BY MOUTH EVERY NIGHT AT BEDTIME. MAY TAKE A SECOND TABLET IF NEEDED. Last Documented On 6 11:13AM By CRISSY CELESTIN [facility] ; [facility] OXcarbazepine 300 MG Tablet 04/07/2015 - 07/08/2015 Pr ovider: CRISSY CELESTIN [facility]- Diagnosis: TAKE THREE TABLETS BY MOUTH AT BEDTIME Last Documented On 6 9:12AM By CRISSY CELESTIN [facility] ; [facility] Augmentin 875-125 MG Tablet 04/06/2015 - 07/10/2015 Pr ovider: ADAN JEAN MD Diagnosis: One tablet twice a day Last Documented On 07/10/2015 9:50AM By ROCHELLE MOORE ; [facility] Amoxicillin 500 MG Tablet 02/09/2015 - 07/10/2015 Prov ider: SUSANA JOSE-C Diagnosis: One tablet twice a day Last Documented On 07/10/2015 9:52AM By ROCHELLE MOORE ; [facility] Diflucan 150 MG Tablet 01/26/2015 - 07/10/2015 Provider: TIA MICHA[facility]S [facility] Diagnosis: Streptococcal pharyngitis 1 tab then repear 3 days later Last Documented On 07/10/2015 9:52AM By ROCHELLE MOORE ; [facility] Cefprozil 500 MG Tablet 01/26/2015 - 07/10/2015 Provider: TIA [facility] Diagnosis: Streptococcal pharyngitis One tablet daily Last Documented On 07/10/2015 9:52AM By ROCHELLE MOORE ; [facility] OXcarbazepine 300 MG Tablet 01/09/2015 - 02/14/2018 Pr ovider: ROSEY UMAÑA [facility] Diagnosis: TAKE THREE TABLETS BY MOUTH ONCE DAILY AT BEDTIM E. Last Documented On 9 2:10PM By CANDY REYES LPN ; [facility] Augmentin 875-125 MG Tablet 11/26/2014 - 04/06/2015 Pr ovider: ADAN JEAN MD Diagnosis: One tablet twice a day Last Documented On 04/06/2015 11:30AM By ADAN JEAN MD ; [facility] Amitriptyline HCl 10 MG Tablet 11/06/2014 - 09/18/2015 Provider: ADAN JEAN MD Diagnosis: 1 every bedtime Last Documented On 6 11:14AM By CRISSY CELESTIN [facility] ; [facility] Chantix Continuing Month Andrea 1 MG Tablet 10/23/2014 - 07/10/2015 Provider: ADAN Dickerson Diagnosis: as directed start after starter pack Last Documented On 07/10/2015 9:51AM By ROCHELLE MOORE ; [facility] Chantix Starting Month Andrea 0 .5 MG X 11 & 1 MG X 42 Tablet 10/23/2014 - 07/10/2015 Provider: ADAN SINGLETON MD Diagnosis: as directed Last Documented On 07/10/2015 9:51AM By ROCHELLE MOORE ; [facility] RisperDAL 0.5 MG Tablet 10/14/2014 - 07/07/2015 Provid er: ADAN JEAN MD Diagnosis: TAKE 1 TABLET BY MOUTH EVERY NIGHT AT BEDTIME. MAY TAKE A SECOND TABLET IF NEEDED. Last Documented On 07/07/2015 3:59PM By ADAN JEAN MD ; [facility] Zithromax Z-Andrea 250 MG Tablet 09/10/2014 - 07/10/2015 Provider: ADAN JEAN MD Diagnosis: as directed Last Documented On 07/10/2015 9:51AM By ROCHELLE MOORE ; [facility] EQ Nicotine 4 MG Lozenge 08/18/2014 - 05/25/2016 Provi kevin: ADAN JEAN MD Diagnosis: May take 1 lozenge every 1-2 hours as directed.Max 20 lozenges in 24 hours Last Documented On 7 2:54PM By CANDY REYES LPN ; [facility] OXcarbazepine 300 MG Tablet 07/10/2014 - 01/09/2015 Pr ovider: ADAN JEAN MD Diagnosis: as directed TAKE THREE TABLE TS BY MOUTH ONCE DAILY AT BEDTIME. Last Documented On 5 11:38AM By ROSEY UMAÑA [facility] ; [facility] PriLOSEC 20 MG Capsule, delayed-release 05/21/2014 - 09/18/2015 Provider: ADAN Dickerson Diagnosis: 1 capsule daily fill with generic Last Documented On 6 11:13AM By CRISSY CELESTIN [facility] ; [facility] PriLOSEC 20 MG OR CPDR 12/16/2013 - 05/21/2014 Provide r: ROSEY UMAÑA [facility] Diagnosis: fill with generic Last Documented On 05/21/2014 2:30PM By ADAN JEAN MD ; [facility] Amitriptyline HCl 10 MG OR TABS 11/13/2013 - 11/06/2014 Provider: DARREN OCAMPO PA-C Diagnosis: Last Documented On 11/06/2014 9:54AM By ADAN JEAN MD ; [facility] RisperDAL 0.5 MG OR TABS 10/16/2013 - 10/14/2014 Provi kevin: ADAN JEAN MD Diagnosis: May take an addition 1 tab p o prn HS in addition to the normal 1 tab po HS dose Last Documented On 10/14/2014 8:33AM By ADAN JEAN MD ; [facility] OXcarbazepine 300 MG OR TABS 07/22/2013 - 07/10/2014 P rovider: DARREN OCAMPO PA-C Diagnosis: TAKE THREE TABLETS BY MOUTH ONCE DAILY AT BEDTIM E. Last Documented On 07/10/2014 10:04AM By ADAN JEAN MD ; [facility] OXcarbazepine 300 MG OR TABS 07/16/2013 - 07/22/2013 P rovider: ADAN JEAN MD Diagnosis: TAKE THREE TABLETS BY MOUTH ONCE DAILY AT BEDTIM E. Last Documented On 4 8:19AM By DARREN OCAMPO PA-C ; [facility] RisperDAL 0.5 MG OR TABS 04/17/2013 - 10/16/2013 Provi kevin: ADAN JEAN MD Diagnosis: May take an addition 1 tab p o prn HS in addition to the normal 1 tab po HS dose Last Documented On 10/16/2013 10:37AM By ADAN JEAN MD ; [facility] Nicoderm CQ 21 MG/24HR TD PT24 01/02/2013 - 05/21/2014 Provider: ADAN JEAN MD Diagnosis: one patch daily Last Documented On 5 2:03PM By CANDY REYES LPN ; [facility] Amitriptyline HCl 10 MG OR TABS 11/20/2012 - 4 Provider: ADAN JEAN MD Diagnosis: Last Documented On 4 5:22PM By DARREN OCAMPO PA-C ; [facility] PriLOSEC 20 MG OR CPDR 10/24/2012 - 12/16/2013 Provide r: ADAN JEAN MD Diagnosis: fill with generic Last Documented On 4 9:06AM By ROSEY UMAÑA [facility]- ; [facility] Amitriptyline HCl 10 MG OR TABS 10/24/2012 - 3 Provider: ADAN JEAN MD Diagnosis: Last Documented On 11/20/2012 11:47AM By ADAN JEAN MD ; [facility] OXcarbazepine 300 MG OR TABS 10/24/2012 - 07/16/2013 P rovider: ADAN JEAN MD Diagnosis: take 3 tablets at bedtime Last Documented On 07/16/2013 11:37AM By ADAN JEAN MD ; [facility] Estradiol 0.5 MG OR TABS 10/24/2012 - 09/18/2015 Provi kevin: ADAN JEAN MD Diagnosis: Last Documented On 6 11:12AM By CRISSY CELESTIN [facility] ; [facility] Metoclopramide HCl 10 MG OR TABS 10/24/2012 - 05/22/19 15 Provider: Diagnosis: Last Documented On 5 2:05PM By CANDY REYES LPN ; [facility] PriLOSEC 20 MG OR CPDR 10/24/2012 - 05/25/2016 Provide r: Diagnosis: Last Documented On 7 3:12PM By CANDY REYES LPN ; [facility] RisperDAL 0.5 MG OR TABS 10/16/2012 - 04/17/2013 Provi kevin: DARREN OCAMPO PA-C Diagnosis: May take an addition 1 tab p o prn HS in addition to the normal 1 tab po HS dose Last Documented On 04/17/2013 4:00PM By ADAN JEAN MD ; [facility] Augmentin 875-125 MG OR TABS 07/11/2012 - 05/21/2014 Provider: ADAN Dickerson Diagnosis: ACUTE SINUSITIS NOS Last Documented On 5 2:05PM By CANDY REYES LPN ; [facility] Amitriptyline HCl 10 MG OR TABS 04/18/2012 - 3 Provider: ADAN JEAN MD Diagnosis: Last Documented On 10/24/2012 11:20AM By ADAN JEAN MD ; [facility] RisperDAL 0.5 MG OR TABS 04/18/2012 - 10/16/2012 Provi kevin: ADAN JEAN MD Diagnosis: May take an addition 1 tab p o prn HS in addition to the normal 1 tab po HS dose Last Documented On 3 11:21AM By DARREN OCAMPO PA-C ; [facility] OXcarbazepine 300 MG OR TABS 04/18/2012 - 10/24/2012 P rovider: ADAN JEAN MD Diagnosis: take 3 tablets at bedtime Last Documented On 10/24/2012 11:20AM By ADAN JEAN MD ; [facility] RisperDAL 0.5 MG OR TABS 10/19/2011 - 04/18/2012 Provi kevin: ADAN JEAN MD Diagnosis: May take an addition 1 tab p o prn HS in addition to the normal 1 tab po HS dose Last Documented On 04/18/2012 1:30PM By ADAN JEAN MD ; [facility] RisperDAL 0.5 MG OR TABS 10/19/2011 - 10/19/2011 Provi kevin: ADAN JEAN MD Diagnosis: May take an addition 1 tab p o prn HS in addition to the normal 1 tab po HS dose Last Documented On 10/19/2011 9:35AM By ADAN JEAN MD ; [facility] Amitriptyline HCl 10 MG OR TABS 10/19/2011 - 3 Provider: ADAN JEAN MD Diagnosis: Last Documented On 04/18/2012 1:30PM By ADAN JEAN MD ; [facility] OXcarbazepine 300 MG OR TABS 10/19/2011 - 04/18/2012 P puneet: ADAN JEAN MD Diagnosis: take 3 tablets at bedtime Last Documented On 04/18/2012 1:30PM By ADAN JEAN MD ; [facility] RisperDAL 0.5 MG OR TABS 09/15/2011 - 10/19/2011 Provi kevin: ADAN JEAN MD Diagnosis: May take an addition 1 tab p o prn HS in addition to the normal 1 tab po HS dose Last Documented On 10/19/2011 9:34AM By ADAN JEAN MD ; [facility] RisperDAL 0.5 MG OR TABS 04/20/2011 - 09/15/2011 Provi kevin: ADAN JEAN MD Diagnosis: May take an addition 1 tab p o prn HS in addition to the normal 1 tab po HS dose Last Documented On 09/15/2011 11:39AM By ADAN JEAN MD ; [facility] Amitriptyline HCl 10 MG OR TABS 04/20/2011 - 2 Provider: ADAN JEAN MD Diagnosis: Last Documented On 10/19/2011 9:32AM By ADAN JEAN MD ; [facility] OXcarbazepine 300 MG OR TABS 04/20/2011 - 10/19/2011 P puneet: ADAN JEAN MD Diagnosis: take 3 tablets at bedtime Last Documented On 10/19/2011 9:32AM By ADAN JEAN MD ; [facility] Estradiol 0.5 MG OR TABS 04/20/2011 - 05/21/2014 Provi kevin: Diagnosis: Last Documented On 5 2:05PM By CANDY REYES LPN ; [facility] RisperDAL 0.5 MG OR TABS 10/21/2010 - 04/20/2011 Provi kevin: KAITLIN CAAL PA-C Diagnosis: May take an addition 1 tab p o prn HS in addition to the normal 1 tab po HS dose Last Documented On 04/20/2011 9:39AM By ADAN JEAN MD ; [facility] RisperDAL 0.5 MG OR TABS 10/21/2010 - 10/21/2010 Provi kevin: KAITLIN CAAL PA-C Diagnosis: Last Documented On 1 10:15AM By KAITLIN CAAL PA-C ; [facility] Amitriptyline HCl 10 MG OR TABS 10/21/2010 - 04/20/2011 Provider: KAITLIN PETERSON CH, PA-C Diagnosis: Last Documented On 04/20/2011 9:37AM By ADAN JEAN MD ; [facility] OXcarbazepine 300 MG OR TABS 10/21/2010 - 04/20/2011 P rovider: KAITLIN CAAL PA-C Diagnosis: take 3 tablets at bedtime Last Documented On 04/20/2011 9:37AM By ADAN JEAN MD ; [facility] Estradiol 0.05 MG/24HR TD PTWK 10/21/2010 - 04/18/2012 Provider: Diagnosis: Last Documented On 04/18/2012 1:30PM By ADAN JEAN MD ; [facility] Flonase 50 MCG/ACT NA SUSP 06/14/2010 - 10/24/2012 Pro vider: DARREN OCAMPO PA-C Diagnosis: 1 spray/nostril every day Last Documented On 3 11:05AM By CANDY REYES LPN ; [facility] Naproxen 500 MG OR TABS 06/14/2010 - 10/24/2012 Provid er: DARREN OCAMPO PA-C Diagnosis: Last Documented On 3 11:05AM By CANDY REYES LPN ; [facility] Penicillin V Potassium 500 M G OR TABS 06/14/2010 - 05/21/2014 Provider: DARREN OCAMPO PA-C Diagnosis: Last Documented On 5 2:05PM By CANDY REYES LPN ; [facility] Zithromax Z-Andrea 250 MG OR TABS 04/20/2010 - 05/21/2014 Provider: ADAN JEAN MD Diagnosis: Last Documented On 5 2:05PM By CANDY REYES LPN ; [facility] RisperDAL 0.5 MG OR TABS 04/20/2010 - 10/21/2010 Provi kevin: ADAN JEAN MD Diagnosis: Last Documented On 1 9:55AM By KAITLIN CAAL PA-C ; [facility] Amitriptyline HCl 10 MG OR TABS 04/20/2010 - 1 Provider: ADAN JEAN MD Diagnosis: Last Documented On 1 9:55AM By KAITLIN CAAL PA-C ; [facility] OXcarbazepine 300 MG OR TABS 04/20/2010 - 10/21/2010 P puneet: ADAN JEAN MD Diagnosis: take 3 tablets at bedtime Last Documented On 1 9:55AM By KAITLIN CAAL PA-C ; [facility] Zithromax Z-Andrea 250 MG OR TABS 12/28/2009 - 04/20/2010 Provider: ADAN JEAN MD Diagnosis: Last Documented On 04/20/2010 10:43AM By ADAN JEAN MD ; [facility] RisperDAL 0.5 MG OR TABS 10/22/2009 - 06/14/2010 Provi kevin: ADAN JEAN MD Diagnosis: Last Documented On 1 9:34AM By DARREN OCAMPO PA-C ; [facility] OXcarbazepine 300 MG OR TABS 10/22/2009 - 04/20/2010 P puneet: ADAN JEAN MD Diagnosis: take 3 tablets at bedtime Last Documented On 04/20/2010 10:43AM By ADAN JEAN MD ; [facility] Amitriptyline HCl 10 MG OR TABS 10/22/2009 - 1 Provider: ADAN JEAN MD Diagnosis: Last Documented On 04/20/2010 10:43AM By ADAN JEAN MD ; [facility] OXcarbazepine 300 MG OR TABS 10/22/2009 - 10/22/2009 P rovider: Diagnosis: take 3 tablets at bedtime Last Documented On 10/22/2009 10:20AM By ADAN JEAN MD ; [facility] Amitriptyline HCl 10 MG OR TABS 10/22/2009 - 0 Provider: Diagnosis: Last Documented On 10/22/2009 10:20AM By ADAN JEAN MD ; [facility] RisperDAL 0.5 MG OR TABS 10/22/2009 - 06/14/2010 Provi kevin: Diagnosis: Last Documented On 1 9:34AM By DARREN OCAMPO PA-C ; [facility] Augmentin 875-125 MG OR TABS 05/28/2009 - 07/11/2012 Provider: ADAN Dickerson Diagnosis: ACUTE SINUSITIS NOS Last Documented On 07/11/2012 10:58AM By ADAN JEAN MD ; [facility] RisperDAL 0.5 MG OR TABS 01/24/2009 - 10/22/2009 Provi kevin: Diagnosis: Last Documented On 10/22/2009 10:20AM By ADAN JEAN MD ; [facility] Chantix Continuing Month Andrea 1 MG OR TABS 01/24/2009 - 04/20/2011 Provider: Diagnosis: Last Documented On 04/20/2011 9:02AM By ADAN JEAN MD ; [facility] Trileptal 300 MG OR TABS 01/24/2009 - 10/24/2012 Provi kevin: Diagnosis: Last Documented On 3 11:05AM By CANDY REYES LPN ; [facility] Zithromax Z-Andrea 250 MG OR TABS 01/24/2009 - 12/28/2009 Provider: WALKER JAIN Diagnosis: Last Documented On 12/28/2009 1:18PM By ADAN JEAN MD ; [facility] Nasonex 50 MCG/ACT NA SUSP 01/24/2009 - 10/24/2012 Pro vider: WALKER JAIN Diagnosis: #2 SPRAYS EACH NARE DAILY. Last Documented On 3 11:05AM By CANDY REYES LPN ; [facility] Medications Administered Includes: Administered Medications in patient's chart Medications Administered Diagnosis Date Pro vider influenza vaccine IM INJ 01/11/2017 KELSEY JEAN MD Last Documented On 7 11:47AM By CANDY REYES LPN ; [facility] Results Includes: Results from 05/22/2023 through 05/21/2024 No Results Recorded For Specified Dates History of Present Illness History of Present Illness not supported for this document type No History of Present Illness Recorded Social History Description Last Updated Social history unchanged 11/22/2019 Last Documented On 0 11:42AM ; [facility] Smoking status : Former smoker 0 Last Documented On 0 1:29PM ; [facility] Current smoker 09/05/2018 Last Documented On 9 3:44PM ; [facility] Not using alcohol 09/10/2014 Last Documented On 5 1:07PM ; [facility] Not using drugs 09/10/2014 Last Documented On 5 1:07PM ; [facility] Cigarette smoking 06/14/2010 Last Documented On 1 12:38PM ; [facility] Smoking using CHANTIX 06/14/2010 Last Documented On 1 12:38PM ; [facility] Medical History Includes: Medical History in patient's chart Description Last Updated A colonoscopy was performed [facility] HAS SCHE DULED 05/25/2016 Last Documented On 7 4:46PM ; [facility] Last mammogram date: 12/2205/25/2016 Last Documented On 7 4:46PM ; [facility] Pt does not get blood pressure checked a t other facility 01/26/2015 Last Documented On 5 4:12PM ; [facility] A mammogram was performed 2011 3 Last Documented On 3 1:05PM ; [facility] No recent change in medical history 10/07 Last Documented On 1 10:16AM ; [facility] No exposure to an upper respiratory infe ction 05/28/2009 Last Documented On 0 12:49PM ; [facility] No recurrent URIs 05/28/2009 Last Documented On 0 12:49PM ; [facility] Family History Includes: Family History in patient's chart Description Last Updated Family history reviewed 02/14/2018 Last Documented On 9 3:03PM ; [facility] Family history unchanged 02/14/2018 Last Documented On 9 3:03PM ; [facility] Maternal history of stroke syndrome 05/07 Last Documented On 7 4:46PM ; [facility] Paternal history of coronary artery dise ase 05/25/2016 Last Documented On 7 4:46PM ; [facility] Father in fair health 09/10/2014 Last Documented On 5 1:07PM ; [facility] Father in good health [employer] Last Documented On 5 1:07PM ; [facility] Review of Systems Review of Systems not supported for this document type No Review of Systems Recorded Mental Status No Mental Status Recorded Functional Status No Functional Status Recorded Physical Exam Physical Exam not supported for this document type No Physical Exam Recorded Immunizations Includes: Immunizations in patient's chart Vaccine Dose # Date Site Reaction(s) Status Source Influenza (Quadrivalent)36 mo.& older PF 0.5ml (SD) 1 11/10/2010 Complete (Reported) Patient Last Documented On 1 9:22AM ; [facility] Influenza (Quadrivalent)36 m o.& older PF 0.5ml (SD) 2 11/25/2011 Complete (Reported) Patie nt Last Documented On 2 9:28AM ; [facility] Influenza (Quadrivalent)36 mo.& older PF 0.5ml (SD) 3 01/11/2017 Right Arm Complete (Administered) [facility] Last Documented On 7 11:50AM ; [facility] Influenza (Quadrivalent)36 mo.& older PF 0.5ml (SD) 4 01/05/2018 Left Deltoid Complete (Administered) [facility] Last Documented On 8 1:45PM ; [facility] Allergies Includes: Active, inactive, and resolved Allergies Substance Type Reaction Onset Date Resolved Date Statu s TORADOL Allergy HALLUCINATIONS N ERVOUS FROM WASTE DOWN 09/10/2014 Active Last Documented On 7 10:17AM ; [facility] Stadol Allergy 09/10/2014 Active Last Documented On 7 10:17AM ; [facility] Note: NERVOUS, FEELS ANSY Nubain Allergy 09/10/2014 Active Last Documented On 7 10:17AM ; [facility] Note: CAUSES NERVOUSNESS Insurance Includes: Active Insurance Policies Plan Name Member ID Group # Subscriber Relationship Effect lokesh Dates 1 - [facility] [id number] [employer] [place] Clinical Notes Includes: Signed Clinical Notes starting from 02/25/2022 No Clinical Notes Recorded
--- OUTSIDE RECORDS SUMMARY | 2024-05-21 17:04 | XMS_ITS | Clinical Summary ---
Author Organization [facility] Address [address] [place] [address] Phone Care Team Providers Care Enrollment Management Vice President Name Role Phone ADAN JEAN MD [facility] Note: Unchanged Bipolar Disorder [...] 2:54PM ; [facility] Note: Unchanged Nicotine Dependence 02/14/2018 ADAN JEAN MD Active Last Documented On 02/14/2018 2:54PM ; [facility] Note: Unchanged Streptococcal Sore Throat 01/26/2015 TIA MICHAELS [employer] Active Last Documented On 01/26/2015 4:10PM ; [facility] Note: Unchanged Gastroenteritis Viral 01/26/2015 NOE TATO MICHAELS [facility]- Active Last Documented On 01/26/2015 4:10PM ; [facility] Note: Unchanged Carpal Tunnel Syndrome 04/18/2012 SHELLI JENA MD Active Last Documented On 04/18/2012 1:29PM ; [facility] Note: Unchanged Irritable Bowel Syndrome 10/22/2009 ADAN JEAN MD Active Last Documented On 7 10:30AM ; [facility] Allergic Rhinitis 10/22/2009 ADAN JEAN MD Active Last Documented On 7 3:54PM ; [facility] Hyperlipidemia 10/22/2009 ADAN JEAN MD Act lokesh Last Documented On 7 10:30AM ; [facility] Cerebral Artery Aneurysm 10/22/2009 ADAN ODOM MD Active Last Documented On 0 1:19PM ; [facility] Note: Unchanged Plan of Treatment No Plan [...] 03/09/2020 1:46PM By ADAN JEAN MD ; [facility] Amitriptyline HCl 10 MG Oral Tablet 03/09/2020 Provi kevin: ADAN JEAN MD Diagnosis: TAKE 2 TABLETS BY MOUTH AT BEDTIME DIRECTED Last Documented On 03/09/2020 1:45PM By ADAN JEAN MD ; [facility] risperiDONE 0.5 MG Oral Tablet Disintegrating 11/29/19 20 Provider: ADAN JEAN MD Diagnosis: one tab po QD as needed for acute anxiety Last Documented On 11/29/2019 9:24AM By ADAN JEAN MD ; [facility] risperiDONE 0.5 MG Oral Tablet 11/29/2019 Provider: ADAN JEAN MD Diagnosis: 2 tabs QHS Last Documented On 11/29/2019 9:24AM By ADAN JEAN MD ; [facility] Melatonin 10 MG Oral Capsule 11/20/2019 Provider : Diagnosis: OTC Last Documented On 0 2:05PM By CANDY REYES LPN ; [facility] Cetirizine HCl 10 MG Oral Tablet 11/20/2019 Provider : Diagnosis: Last Documented On 0 2:01PM By CANDY REYES LPN ; [facility] Famotidine 40 MG Oral Tablet 11/20/2019 Provider: Diagnosis: Last Documented On 0 2:00PM By CANDY REYES LPN ; [facility] OXcarbazepine 300 MG Oral Tablet 10/23/2019 Provider : ADAN JEAN MD Diagnosis: TAKE 3 TABLETS BY MOUTH AT BEDTIME Last Documented On 10/23/2019 1:40PM By ADAN JEAN MD ; [facility] Linzess 72MCG Oral Capsule 09/05/2018 Provider: Stephen JEAN MD Diagnosis: One tablet daily Last Documented On 09/05/2018 12:01PM By ADAN JEAN MD ; [facility] Omeprazole 20MG Oral Capsule , delayed-release 02/14/2018 Provider: ADAN JEAN MD Diagnosis: Gastro-esophagea l reflux disease with esophagitis One tablet daily Last Documented On 02/14/2018 2:59PM By ADAN JEAN MD ; [facility] Medications Administered Includes: Administered Medications from this [...] [facility] Note: CAUSES NERVOUSNESS Encounters Encounter Provider Location Date Check-In Time Check-Out Time Diagnosis * PHONE CALL ADAN JEAN MD [facility] 0 3:03PM 11:59PM Insurance Includes: Active Insurance Policies Plan Name Member ID Group # Subscriber Relationship Effect lokesh Dates - [facility] [id number] [employer] [place] Clinical Notes Includes: Clinical Notes from this encounter No Clinical Notes Recorded
--- OUTSIDE RECORDS SUMMARY | 2024-05-21 17:04 | XMS_ITS | Referral Summary ---
Author Organization [facility] Address [address] [place] [address] Care Team Providers Care Debone Processing Supervisor Name Role Phone Leonarda Ahn MD Primary Care Provider [phone] Encounters Date Type Department Care Team Description 05/19/2024 [facility] [address] [place] [phone] Homer Hernandez MD 05/13/2024 [facility] [address] [place] [phone] Homer Hernandez MD 05/13/2024 2:00 PM CDT Procedure visit [address] [place] [phone] Homer Hernandez MD PMB (postmenopausal bleeding) (Primary Dx) 04/03/[address] [place] [phone] Wendy Thompson RN and Lab Results 04/01/2024 8:10 AM AIRCRAFT DELIVERY CHECKER Lab [address] Symptomatic menopausal or female climacteric states 04/01/2024 8:30 AM AIRCRAFT DELIVERY CHECKER Ancillary Procedure [address] [place] [phone] PMB (postmenopausal bleeding) 03/25/2024 Results Follow-Up [address] [place] [address] Wendy Thompson RN Symptomatic menopausal or female climacteric states (Primary Dx) 03/19/2024 1:00 PM AIRCRAFT DELIVERY CHECKER Office Visit [facility] [address] [place] [address] [address] [place] [phone] Homer Hernandez MD PMB (postmenopausal bleeding) (Primary Dx); Encounter for IUD removal; Endometritis; Unsatisfactory cervical Papanicolaou smear; Vaginal discharge from Last 3 Months Allergies No known active allergies Medications amitriptyline [...] 01/23/2023 Assessment & Plan (01/23/2023 10:15 AM AIRCRAFT DELIVERY CHECKER): Patient wishes to continue on her estrogen [...] 03/21/2019 Assessment & Plan (03/21/2019 4:43 PM AIRCRAFT DELIVERY CHECKER): Take famotidine 40 mg tablets daily. She can use hlek-jtt-aytsomu Zegerid capsules once or twice daily as needed as well. Anxiety 02/02/2019 Irritable bowel syndrome with constipation 10/25 Assessment & Plan (03/21/2019 4:43 PM AIRCRAFT DELIVERY CHECKER): Will continue Linzess 72 micro g daily capsules. Follow-up in few months. Assessment & Plan (12/20/2018 4:05 PM AIRCRAFT DELIVERY CHECKER): Still constipation issues. Will add mineral oil 1 tbsp daily. Will increase Linzess to 145 micro gram capsule daily and samples given. Follow-up in 3 months Assessment & Plan (10/25/2018 12:34 PM CDT): Continue Linzess 72 micro g daily. Discussed with the patient to start fiber gummy is a fiber supplement and also tried jovi-kbj-ksiaetc milk of magnesia as needed. Dyspepsia 10/18/2018 Overview (10/18/2018): Added automatically from request for surgery [id number] Assessment & Plan (12/20/2018 4:05 PM AIRCRAFT DELIVERY CHECKER): Continue Protonix as I think acid reflux is part of her symptoms. Follow-up in 3 months. Assessment & Plan (10/25/2018 12:34 PM CDT): Schedule EGD for further evaluation. Patient was reassured regarding her room complaints and likely related to irritable bowel syndrome. Thoracic outlet syndrome 03/15/2012 Carpal tunnel syndrome 03/15/2012 Social History Tobacco Use Types Packs/Day Years [...] on file Legal Sex Female 2:27 AM AIRCRAFT DELIVERY CHECKER Gender Identity Not on file Sexual Orientation Not on file Last Filed Vital Signs Vital Sign Reading [...] 05/13/2024 2:14 PM CDT Plan of Treatment Not on file Procedures Procedure Name Priority Date/Time Associated Diagnosis Comments TISSUE PATHOLOGY Routine 05/13/2024 12:0 0 AM CDT US TRANSVAGINAL Schedule Routine, Read Routine (OP Routine) 04/01/2024 9:27 AM AIRCRAFT DELIVERY CHECKER PMB (postmenopausal bleeding) FOLLICLE STIMULATING HORMONE Routine 04/01/2024 8:12 AM AIRCRAFT DELIVERY CHECKER Symptomatic menopausal or female climacteric states PAP AND HPV, REFLEX TO HPV GENOTYPES Routine 03/19/2024 1:52 PM AIRCRAFT DELIVERY CHECKER Unsatisfactory cervical Papanicolaou smear N. GONORRHOEAE/C. TRACHOMATIS AMPLIFICATION Routine 03/19/2024 1:52 PM AIRCRAFT DELIVERY CHECKER Endometritis MO REMOVAL INTRAUTERINE DEVICE IUD Routine 03/19/2024 1:00 PM AIRCRAFT DELIVERY CHECKER Encounter for IUD removal SCREENING MAMMOGRAM BILATERAL W GREGOR Schedule Routine, Read Routine (OP Routine) 10/06/2023 9:31 AM CDT from Last 3 Months or Most Recently Relevant to Health Maintenance Results * Surgical pathology tissue exam request - other pathology (05/13/2024 12:00 AM CDT) Clinical information [facility] Comment:Postmenopausal bleed ing PATHOLOGIST [facility] Comment: Alexi Eaton M.D., Board Certified in Anatomic Pathology and Clinical Pathology. (electronic signature) A source [facility] Comment:Endometrium, biopsy A Gross description [facility] Comment: Specimen is received in 10% neutral buffered formalin, labeled with multiple patient identifiers and consists of multiple fragments of soft tissue aggregating to 2.2 x 1.0 x 0.2 cm, irregular in shape and matos-brown in color. The specimen is entirely submitted in one cassette. Site is not given on container. Gross exam(s) performed at: [address] [address] Cement Mason Helper: TAMRA ALLISON MD A diagnosis [facility] Comment: Scant strips of endometrial surface epithelium and crushed endometrial stroma, consistent with inactive endometrium/atrophy with blood. Endocervical tissue showing squamous metaplasia. No features diagnostic of hyperplasia or malignancy. 05/13/2024 05/15/2024 2:2 4 AM CDT Narrative [facility] - 05/16/2024 2:58 PM CDT FASTING: UNKNOWN Homer Hernandez MD LAB PATHOLOGY ORDERABLES F inal Result [address] [place] [address] * US Transvaginal (04/01/2024 9:27 AM AIRCRAFT DELIVERY CHECKER) Cul de Sac No free fluid visualized VIEWPOINT Anatomical Region Laterality Modality Pelvis N/A Ultrasound 04/01/2024 8:54 AM AIRCRAFT DELIVERY CHECKER Impressions 04/03/2024 8:09 PM AIRCRAFT DELIVERY CHECKER 1. Small retroverted to midplane uterus. EMC is not reliably measured. 2. Normal appearing ovaries bilaterally. Narrative Procedure Note Homer Hernandez MD - 04/03/2024 IMPRESSION: 1. Small retroverted to midplane uterus. EMC is not reliably measured. 2. Normal appearing ovaries bilaterally. Homer Hernandez MD IMG US PROCEDURES Final Re sult * Follicle stimulating hormone (04/01/2024 8:12 AM AIRCRAFT DELIVERY CHECKER) FSH 48.4 IUnits/L Comment: Interpretive Data Male: Adults: 1.5 - 12.4 IUnits/L Female: Follicular: 3.5 - 12.5 IUnits/L Ovulation: 4.7 - 21.5 IUnits/L Luteal: 1.7 - 7.7 IUnits/L Postmenopausal: 25.8 - 134.8 IUnits/L Current interpretive data was last revised 2015. Testing performed by: [facility], [address] [place] [address] Blood 04/01/2024 8:12 AM AIRCRAFT DELIVERY CHECKER 04/01/2024 2:29 PM AIRCRAFT DELIVERY CHECKER Homer Hernandez MD LAB BLOOD ORDERABLES Final Result [facility]) [address] [facility] Department [place] [address] * Pap and HPV, reflex to HPV Genotypes (03/19/2024 1:52 PM AIRCRAFT DELIVERY CHECKER) CLINICAL INFORMATION: [facility] Comment:WWE LMP [facility] Comment:IUD Previous Pap [facility] Comment:NONE GIVEN Prev. Bx [facility] Comment:NONE GIVEN SOURCE: [facility] Comment:Cervix, Endocervix Pap, specimen adequacy [facility] Comment: Satisfactory for evaluation. Endocervical/transformation zone component present. Partially obscuring inflammation HPV interp [facility] Comment: Cytology Results: Negative for intraepithelial lesion or malignancy. COMMENTS [facility] Comment: This Pap test has been evaluated with computer assisted technology. Professional Bondsman Que [facility] Comment: JAF, CT(ASCP) CT Screening Location: [place] [address] Administration ISAIAH Ruiz [id number] Review sail cutter [facility] Comment: TMK, CT(ASCP) CT screening location: [place] [address] Administration [place] Ruiz [address] Comment [facility] Comment: EXPLANATORY NOTE: The Pap is a [...] High Risk E6/E7 Not Detected NOT DETECTED [facility] Comment: Not Detected High Risk HPV types (16,18,31,33,35,39,45,51,52, 56,58,59,66,68) were not detected. Other HPV types which cause anogenital lesions may be present. The significance of the other types of HPV in malignant processes has not been established. Methodology: Real Time PCR Thin prep-Endocervica l 03/19/2024 1:52 PM AIRCRAFT DELIVERY CHECKER 03/20/2024 3:19 AM AIRCRAFT DELIVERY CHECKER Homer Hernandez MD LAB CYTOLOGY ORDERABLES Fi nal Result [place] [address] Administration ISAIAH Barajas [address] [facility] [address] [place] [address] * N. gonorrhoeae/C. trachomatis Amplification (03/19/2024 1:52 PM AIRCRAFT DELIVERY CHECKER) C. trachomatis RNA NOT DETECTED NOT DETECTED [facility] N. gonorrhoeae RNA NOT DETECTED NOT DETECTED [facility] Comment [facility] Comment: The analytical performance characteristics of this assay, when used to test SurePath(TM) specimens have been determined by [facility]. The modifications have not been cleared or approved by the FDA. This assay has been validated pursuant to the CLIA regulations and is used for clinical purposes. For additional information, please refer to https://education.Sellaround/faq/OTF105 (This link is being provided for information/ educational purposes only.) 03/19/2024 1:52 PM AIRCRAFT DELIVERY CHECKER 03/20/2024 3:19 AM AIRCRAFT DELIVERY CHECKER Homer Hernandez MD LAB MICROBIOLOGY - GENERAL ORDERABLES Final Result [facility] [address] [place] [address] * [place] REMOVAL INTRAUTERINE DEVICE IUD (03/19/2024 1:00 PM AIRCRAFT DELIVERY CHECKER) Narrative Homer Hernandez MD - 03/19/2024 1:00 PM AIRCRAFT DELIVERY CHECKER Homer Hernandez MD 04/07/2024 10:11 PM IUD [...] Most Recently Relevant to Health Maintenance Insurance [facility] MEDICARE FORMERLY [facility], [facility] HMO/PPO Address: [facility] [address] [place] [address] MEDICARE [facility] Address: [address] [address] [place] [address] [facility] Advance Directives For more information, please contact: [phone] * Full Code (Latest Code Status on File) Date Activated Date Inactivated Comments 05/05/2020 11:29 AM 05/05/2020 4:03 PM * Full Code Date Activated Date Inactivated Comments 12/04/2018 7:42 AM 12/04/2018 2:07 PM * Full Code Date Activated Date Inactivated Comments 12/04/2018 7:41 AM 12/04/2018 7:42 AM Care Teams Debone Processing Supervisor Relationship Specialty Start Date End Date Leonarda Ahn MD PCP - General Family Medicine 03/09/23
--- OUTSIDE RECORDS SUMMARY | 2024-05-21 17:05 | XMS_ITS ---
Care Plan - [facility] Created on: May 21, 2024 LINN CHEW : 1965 Sex: Female Author Organization [facility] Address [address] [place] [phone] Phone Care Team Providers Care School Operations Manager Name Role Phone ADAN JEAN MD Primary Care Provider Unavail able
[2024-05-21 18:38] LABS: Basophils Percent Auto 0.3 % (0.2-1.2); Eosinophils Absolute Auto 0.2 K/mm3 (0-0.3); Eosinophils Percent Auto 1.7 % (0-4.4); Hematocrit 41.4 % (37.0-47.0); Hemoglobin 14.3 g/dL (12.0-15.0); Immature Granulocyte Absolute 0.04 K/mm3 (0.00-0.031); Immature Granulocyte Percent A 0.3 % (0-0.5); Lymphocytes Absolute Auto 2.82 K/mm3 (0.9-3.2); Lymphocytes Percent Auto 22.3 % (18.3-44.2); Mean Corpuscular HGB Conc 34.5 g/dl (32-36); Mean Corpuscular Hemoglobin 30.7 pg (26-34); Mean Corpuscular Volume 88.8 fl (80-100); Mean Platelet Volume 8.1 fl (7.4-10.4); Monocytes Absolute Auto 1.2 K/mm3 (0.1-0.6); Monocytes Percent Auto 9.2 % (2.6-8.5); Neutrophils Absolute Auto 8.4 K/mm3 (1.3-6.7); Neutrophils Percent Auto 66.2 % (45.5-73.1); Platelet Count Result 295 k/mm3 (150-375); Red Blood Count 4.66 M/mm3 (4.2-5.4); Red Cell Distribution Width 13.2 % (11.5-14.5); White Blood Count 12.7 K/mm3 (4.5-10.0)
[2024-05-21 18:49] LABS: Estimated Glomerular Filt Rate > 60
[2024-05-21 18:55] LABS: Alanine Aminotransferase 20 U/L (6-35); Albumin Level 4.6 g/dL (3.5-5.1); Alkaline Phosphatase 84 U/L (38-126); Anion Gap 9 mmol/L (4-12); Aspartate Amino Transferase 22 U/L (14-36); Bilirubin,Total 0.5 mg/dL (0.2-1.3); Blood Urea Nitrogen 12 mg/dL (7-17); CRP 2.9 mg/dL (<1.0); Carbon Dioxide 25 mmol/L (22-30); Chloride 101 mmol/L (98-107); Estimated Glomerular Filt Rate > 60; Glucose 110 mg/dL (65-110); Potassium 4.2 mmol/L (3.4-5.0); Sodium 135 mmol/L (137-145)
--- OUTSIDE RECORDS SUMMARY | 2024-05-21 18:57 | XMS_ITS | Clinical Summary ---
Author Organization [facility] Address [address] [place] [address] Phone Care Team Providers Care Sweet Pickle Maker Name Role Phone ADAN JEAN MD Primary [...] Active Last Documented On 11/22/2019 10:28AM ; [facility] Note: Unchanged Bipolar Disorder Moderate 02/13/2019 ADAN JEAN MD Active Last Documented On 02/13/2019 1:27PM ; [facility] Note: Unchanged Schizophrenia, in Remission 12/26/2018 ADAN JEAN MD Active Last Documented On 12/26/2018 12:59PM ; [facility] Note: Unchanged Past Visits Onset Date Resolved Date Provider Condition Status Bipolar I Disorder Currently in Remission 12/26/2018 ADAN JEAN MD Active Last Documented On 12/26/2018 12:59PM ; [facility] Note: Unchanged Dysphagia 09/05/2018 ADAN JEAN MD Active Last Documented On 09/05/2018 1:26PM ; [facility] Note: Unchanged Peripheral Neuropathy Sensory 09/05/2018 ADAN JEAN MD Active Last Documented On 09/05/2018 1:26PM ; [facility] Note: Unchanged Gerd 02/14/2018 ADAN JEAN MD Active Last Documented On 02/14/2018 2:54PM ; [facility] Note: Unchanged Nicotine Dependence 02/14/2018 ADAN JEAN MD Active Last Documented On 02/14/2018 2:54PM ; [facility] Note: Unchanged Streptococcal Sore Throat 01/26/2015 TIA MICHAELS TOOL SPECIALIST-BC Active Last Documented On 01/26/2015 4:10PM ; [facility] Note: Unchanged Gastroenteritis Viral 01/26/2015 NOE MICHAELS TOOL SPECIALIST-BC Active Last Documented On 01/26/2015 4:10PM ; [facility] Note: Unchanged Carpal Tunnel Syndrome 04/18/2012 SHELLI JEAN MD Active Last Documented On 04/18/2012 1:29PM ; [facility] Note: Unchanged Irritable Bowel Syndrome 10/22/2009 ADAN JEAN MD Active Last Documented On 7 10:30AM ; [facility] Allergic Rhinitis 10/22/2009 ADAN JEAN MD Active Last Documented On 7 3:54PM ; [facility] Hyperlipidemia 10/22/2009 ADAN JEAN MD Act lokesh Last Documented On 7 10:30AM ; [facility] Cerebral Artery Aneurysm 10/22/2009 ADAN ODOM MD Active Last Documented On 0 1:19PM ; [facility] Note: Unchanged Plan of Treatment - Return to the clinic if condition worsens or new symptoms arise - Last Documented On 11/22/2019 11:42AM ; [facility] - Follow-up visit as needed - Last Documented On 11/22/2019 11:42AM ; [facility] Labs before next visit:N/A She is to follow up with her Psych and he needs to send me a note of her traetment plan if he wants me to prescribe her meds We will contact pharmacy and see if there is an actual problem there. - Last Documented On 11/22/2019 11:42AM ; [facility] Assessments Includes: Assessments from this encounter Findings - Classic migraine (with aura) - Last Documented On 11/22/2019 11:42AM ; [facility] - Schizophrenia in remission - Last Documented On 11/22/2019 11:42AM ; [facility] - Moderate bipolar disorder - Last Documented On 11/22/2019 11:42AM ; [facility] Medical Equipment - Implanted Devices Includes: Current Devices No Medical Equipment Recorded Medications Includes: Medications discussed during this encounter and other current Medications Discontinued / Stopped on this date SAV GUADALUPEP on 12/05/2018 buPROPion HCl ER (SR) 150 MG Oral Tablet Extended Release 12 Hour Provider: SAV ROMO TOOL SPECIALIST Diagnosis: Last Documented On 0 2:01PM By CANDY REYES LPN ; [facility] Macrobid 100 MG Oral Capsule Provider: SAV ROMO TOOL SPECIALIST Diagnosis: Urinary tract in fection, site not specified Last Documented On 0 1:57PM By CANDY REYES LPN ; [facility] Amoxicillin 875MG Oral Tablet Provider: ADAN JEAN MD Diagnosis: Last Documented On 0 1:56PM By CANDY REYES LPN ; [facility] Nicoderm CQ 14MG/24HR Transdermal Patch 24 Hour Provider: ADAN JEAN MD Diagnosis: Nicotine depende nce, cigarettes, uncomplicated Last Documented On 0 1:57PM By CANDY REYES LPN ; [facility] Nicoderm CQ 21MG/24HR Transdermal Patch 24 Hour Provider: ADAN JEAN MD Diagnosis: Nicotine depende nce, cigarettes, uncomplicated Last Documented On 0 1:57PM By CANDY REYES LPN ; [facility] Nicoderm CQ 7MG/24HR Transdermal Patch 24 Hour Provider: ADAN JEAN MD Diagnosis: Nicotine depende nce, cigarettes, uncomplicated Last Documented On 0 1:57PM By CANDY REYES LPN ; [facility] Current Medications (continue as prescribed) Cetirizine HCl 10 MG Oral Tablet 03/09/2020 Provider : ADAN JEAN MD Diagnosis: TAKE 1 TABLET BY MOUTH DAILY Last Documented On 03/09/2020 1:46PM By ADAN JEAN MD ; [facility] Amitriptyline HCl 10 MG Oral Tablet 03/09/2020 Provi kevin: ADAN JEAN MD Diagnosis: TAKE 2 TABLETS BY MOUTH AT BEDTIME DIRECTED Last Documented On 03/09/2020 1:45PM By ADAN JEAN MD ; [facility] risperiDONE 0.5 MG Oral Tablet Disintegrating 11/29/19 20 Provider: ADAN JEAN MD Diagnosis: one tab po QD as needed for acute anxiety Last Documented On 11/29/2019 9:24AM By ADAN JEAN MD ; [facility] risperiDONE 0.5 MG Oral Tablet 11/29/2019 Provider: ADAN JEAN MD Diagnosis: 2 tabs QHS Last Documented On 11/29/2019 9:24AM By ADAN JEAN MD ; [facility] Melatonin 10 MG Oral Capsule 11/20/2019 Provider : Diagnosis: OTC Last Documented On 0 2:05PM By CANDY REYES LPN ; [facility] Cetirizine HCl 10 MG Oral Tablet 11/20/2019 Provider : Diagnosis: Last Documented On 0 2:01PM By CANDY REYES LPN ; [facility] Famotidine 40 MG Oral Tablet 11/20/2019 Provider: Diagnosis: Last Documented On 0 2:00PM By CANDY REYES LPN ; [facility] OXcarbazepine 300 MG Oral Tablet 10/23/2019 Provider : ADAN JEAN MD Diagnosis: TAKE 3 TABLETS BY MOUTH AT BEDTIME Last Documented On 10/23/2019 1:40PM By ADAN JEAN MD ; [facility] Linzess 72MCG Oral Capsule 09/05/2018 Provider: Stephen JEAN MD Diagnosis: One tablet daily Last Documented On 09/05/2018 12:01PM By ADAN JEAN MD ; [facility] Omeprazole 20MG Oral Capsule , delayed-release 02/14/2018 Provider: ADAN EJAN MD Diagnosis: Gastro-esophagea l reflux disease with esophagitis One tablet daily Last Documented On 02/14/2018 2:59PM By ADAN JEAN MD ; [facility] Past Medications on file Amitriptyline HCl 10 MG Oral Tablet 05/29/2019 - 08/26 Provider: Diagnosis: TAKE TWO TABLETS AT HS Last Documented On 05/29/2019 11:13AM By BRAEDEN VALADEZ ; [facility] Macrobid 100 MG Oral Capsule 04/25/2019 - 05/02/2019 Provider: ADAN Dickerson Diagnosis: Urinary tract infection, site not specified One tablet twice a day Last Documented On 04/25/2019 9:59AM By ADAN JEAN MD ; [facility] Amitriptyline HCl 10 MG Oral Tablet 10/16/2018 - 10/11/2019 Provider: SAV ORR Diagnosis: TAKE 1 TABLET BY MOUTH EVERY NIGHT AT BEDTIME Last Documented On 10/16/2018 8:24AM By SAV ROMO LOGISTICS OPERATIONS DIRECTOR ; [facility] Sulfamethoxazole-Trimethopri m 400-80MG Oral Tablet 04/03/2018 - 04/10/2018 Provider: ADAN JEAN MD Diagnosis: One tablet twice a day Last Documented On 04/03/2018 1:10PM By ADAN JEAN MD ; [facility] Fluticasone Propionate 50MCG/ACT Nasal Suspension 01/20/2017 - 07/19/2017 Provider: JOE STOKES PA-C Diagnosis: 2 sprays each nostril once daily fill with gener ic Last Documented On 7 12:02PM By JOE STOKES PA-C ; [facility] Estradiol 0.5 MG Tablet 09/18/2015 - 09/12/2016 Provid er: CRISSY CUTLER Diagnosis: 1 daily Last Documented On 6 11:17AM By CRISSY CUTLER ; [facility] Medications Administered Includes: Administered Medications [...] 1.7 Last Documented: On 11/20/2019 2:08PM ; [facility] Results Includes: Results discussed during this encounter No Results Recorded For Specified Dates History of Present Illness Includes: History of Present Illness from this encounter DAMI CHEW is a 54 year old female. Pt. states she has not worked since Early october due to stress, anxiety, bipolar disorder and migraines. She is seeing a Psych at [facility] [address]ledge as well as a counselor. [...] 11/22/2019 Last Documented On 0 11:42AM ; [facility] Smoking Status Unknown Procedures and Surgical History Includes: Procedures from this encounter Procedures Code Diagnosis Performing Provider Service L ocation Service Date continue current medication Last Documented On 0 1:55PM ; [facility] plan of care reviewed and agreed to by claudia goode Last Documented On 0 1:55PM ; [facility] Urged Exercise and Diet Last Documented On 0 1:55PM ; [facility] Continue current treatment plan Last Documented On 0 1:55PM ; [facility] Clinical summary provided to patient Last Documented On 0 1:55PM ; [facility] Medical History Includes: Medical History addressed [...] Active Last Documented On 7 10:17AM ; [facility] Stadol Allergy 09/10/2014 Active Last Documented On 7 10:17AM ; [facility] Note: NERVOUS, FEELS ANSY Nubain Allergy 09/10/2014 Active Last Documented On 7 10:17AM ; [facility] Note: CAUSES NERVOUSNESS Encounters Encounter Provider Location Date Check-In Time Check-Out Time Diagnosis PROBLEM VISIT ADAN JEAN MD [facility] 11/20/19 2:00PM 2:46PM Bipolar Disorder Moderate,Schi zophrenia, in Remission,Cla ssic Migraine with Aura Insurance Includes: Active Insurance Policies Plan Name Member ID Group # Subscriber Relationship Effect lokesh Dates 1 - [facility] [id number] [place] Clinical Notes Includes: Clinical Notes from this encounter No Clinical Notes Recorded
--- OUTSIDE RECORDS SUMMARY | 2024-05-21 18:57 | XMS_ITS | Clinical Summary ---
Author Organization [facility] Address [address] [place] [address] Care Team Providers Care Steel Crane Operator Name Role Phone Alexi Toth MD Primary Care Provider [phone] Source Comments [facility],non-owned Affiliates and Associated Physician Practices is amultiple site organization consisting of ambulatory clinics and hospital sitesin [place], [place], [place] and [place]. This disclosure is being madepursuant to the Care Everywhere program and may not contain all information available regarding this patient. Last updated 17.[facility] Active Problems Problem Noted Date Diagnosed Date [...] on file Legal Sex Female 7:54 AM DOLLY PUSHER Gender Identity Not on file Sexual Orientation [...] Recently Relevant to Health Maintenance Care Teams Steel Crane Operator Relationship Specialty Start Date End Date Alexi Toth MD [address] [place] [phone] PCP - General 02/24/11
--- OUTSIDE RECORDS SUMMARY | 2024-05-21 18:58 | XMS_ITS | Clinical Summary ---
Author Organization [facility] Address [address] [place] [address] Phone Care Team Providers Care Waist Fitter Name Role Phone ADAN JEAN MD Primary Care Provider Unavail able Reason for Visit and Chief Complaint * PHONE CALL Problems Includes: Problems addressed during this encounter and other active Problems All Visits Onset Date Resolved Date Provider Condition S tatus 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 11/22/2019 ADAN JEAN MD Active Last Documented On 11/22/2019 10:28AM ; [facility] Note: Unchanged Bipolar Disorder Moderate 02/13/2019 ADAN JEAN MD Active Last Documented On 02/13/2019 1:27PM ; [facility] Note: Unchanged Bipolar I Disorder Currently in Remission 12/26/2018 ADAN JEAN MD Active Last Documented On 12/26/2018 12:59PM ; [facility] Note: Unchanged Schizophrenia, in Remission 12/26/2018 ADAN JEAN MD Active Last Documented On 12/26/2018 12:59PM ; [facility] Note: Unchanged Dysphagia 09/05/2018 ADAN JEAN MD Active Last Documented On 09/05/2018 1:26PM ; [facility] Note: Unchanged Peripheral Neuropathy Sensory 09/05/2018 ADAN JEAN MD Active Last Documented On 09/05/2018 1:26PM ; [facility] Note: Unchanged Gerd 02/14/2018 ADAN JEAN MD Active Last Documented On 02/14/2018 2:54PM ; [facility] Note: Unchanged Nicotine Dependence 02/14/2018 ADAN JEAN MD Active Last Documented On 02/14/2018 2:54PM ; [facility] Note: Unchanged Streptococcal Sore Throat 01/26/2015 TIA [facility] Active Last Documented On 01/26/2015 4:10PM ; [facility] Note: Unchanged Gastroenteritis Viral 01/26/2015 NOE TATO [facility]- Active Last Documented On 01/26/2015 4:10PM ; [facility] Note: Unchanged Carpal Tunnel Syndrome 04/18/2012 SHELLI JEAN MD Active Last Documented On 04/18/2012 1:29PM ; [facility] Note: Unchanged Irritable Bowel Syndrome 10/22/2009 ADAN JEAN MD Active Last Documented On 7 10:30AM ; [facility] Allergic Rhinitis 10/22/2009 ADAN JEAN MD Active Last Documented On 7 3:54PM ; [facility] Hyperlipidemia 10/22/2009 ADAN JEAN MD Act lokesh Last Documented On 7 10:30AM ; [facility] Cerebral Artery Aneurysm 10/22/2009 ADAN ODOM MD Active Last Documented On 0 1:19PM ; [facility] Note: Unchanged Plan of Treatment No [...] 03/09/2020 1:46PM By ADAN JEAN MD ; [facility] Amitriptyline HCl 10 MG Oral Tablet 03/09/2020 Provi kevin: ADAN JEAN MD Diagnosis: TAKE 2 TABLETS BY MOUTH AT BEDTIME DIRECTED Last Documented On 03/09/2020 1:45PM By ADAN JEAN MD ; [facility] risperiDONE 0.5 MG Oral Tablet Disintegrating 11/29/19 20 Provider: ADAN JEAN MD Diagnosis: one tab po QD as needed for acute anxiety Last Documented On 11/29/2019 9:24AM By ADAN JEAN MD ; [facility] risperiDONE 0.5 MG Oral Tablet 11/29/2019 Provider: ADAN JEAN MD Diagnosis: 2 tabs QHS Last Documented On 11/29/2019 9:24AM By ADAN JEAN MD ; [facility] Melatonin 10 MG Oral Capsule 11/20/2019 Provider : Diagnosis: OTC Last Documented On 0 2:05PM By CANDY REYES LPN ; [facility] Cetirizine HCl 10 MG Oral Tablet 11/20/2019 Provider : Diagnosis: Last Documented On 0 2:01PM By CANDY REYES LPN ; [facility] Famotidine 40 MG Oral Tablet 11/20/2019 Provider: Diagnosis: Last Documented On 0 2:00PM By CANDY REYES LPN ; [facility] OXcarbazepine 300 MG Oral Tablet 10/23/2019 Provider : ADAN JEAN MD Diagnosis: TAKE 3 TABLETS BY MOUTH AT BEDTIME Last Documented On 10/23/2019 1:40PM By ADAN JEAN MD ; [facility] Linzess 72MCG Oral Capsule 09/05/2018 Provider: Stephen JEAN MD Diagnosis: One tablet daily Last Documented On 09/05/2018 12:01PM By ADAN JEAN MD ; [facility] Omeprazole 20MG Oral Capsule , delayed-release 02/14/2018 Provider: ADAN JEAN MD Diagnosis: Gastro-esophagea l reflux disease with esophagitis One tablet daily Last Documented On 02/14/2018 2:59PM By ADAN JEAN MD ; [facility] Medications Administered Includes: Administered Medications from [...] Active Last Documented On 7 10:17AM ; [facility] Stadol Allergy 09/10/2014 Active Last Documented On 7 10:17AM ; [facility] Note: NERVOUS, FEELS ANSY Samuelin Allergy 09/10/2014 Active Last Documented On 7 10:17AM ; [facility] Note: CAUSES NERVOUSNESS Encounters Encounter Provider Location Date Check-In Time Check-Out Time Diagnosis * PHONE CALL [facility] 0 9:52AM 11:59PM Insurance Includes: Active Insurance Policies Plan Name Member ID Group # Subscriber Relationship Effect lokesh Dates - [facility] [id number] LINN Yip f Clinical Notes Includes: Clinical Notes from this encounter No Clinical Notes Recorded
--- OUTSIDE RECORDS SUMMARY | 2024-05-21 18:58 | XMS_ITS ---
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 Name Role Phone ADAN JEAN MD Primary [...] Active Last Documented On 11/22/2019 10:28AM ; [facility] Note: Unchanged Bipolar Disorder Moderate 02/13/2019 ADAN JEAN MD Active Last Documented On 02/13/2019 1:27PM ; [facility] Note: Unchanged Bipolar I Disorder Currently in Remission 12/26/2018 ADAN JEAN MD Active Last Documented On 12/26/2018 12:59PM ; [facility] Note: Unchanged Schizophrenia, in Remission 12/26/2018 ADAN JEAN MD Active Last Documented On 12/26/2018 12:59PM ; [facility] Note: Unchanged Dysphagia 09/05/2018 ADAN JEAN MD Active Last Documented On 09/05/2018 1:26PM ; [facility] Note: Unchanged Peripheral Neuropathy Sensory 09/05/2018 ADAN JEAN MD Active Last Documented On 09/05/2018 1:26PM ; [facility] Note: Unchanged Gerd 02/14/2018 ADAN JEAN MD Active Last Documented On 02/14/2018 2:54PM ; [facility] Note: Unchanged Nicotine Dependence 02/14/2018 ADAN JEAN MD Active Last Documented On 02/14/2018 2:54PM ; [facility] Note: Unchanged Streptococcal Sore Throat 01/26/2015 TIA MICHAELS HALFTONE OPERATOR-BC Active Last Documented On 01/26/2015 4:10PM ; [facility] Note: Unchanged Gastroenteritis Viral 01/26/2015 NOE MICHAELS HALFTONE OPERATOR-BC Active Last Documented On 01/26/2015 4:10PM ; [facility] Note: Unchanged Carpal Tunnel Syndrome 04/18/2012 SHELLI JEAN MD Active Last Documented On 04/18/2012 1:29PM ; [facility] Note: Unchanged Irritable Bowel Syndrome 10/22/2009 ADAN JEAN MD Active Last Documented On 7 10:30AM ; [facility] Allergic Rhinitis 10/22/2009 ADAN JEAN MD Active Last Documented On 7 3:54PM ; [facility] Hyperlipidemia 10/22/2009 ADAN JEAN MD Act lokesh Last Documented On 7 10:30AM ; [facility] Cerebral Artery Aneurysm 10/22/2009 ADAN ODOM MD Active Last Documented On 0 1:19PM ; [facility] Note: Unchanged Plan of Treatment Findings Encounter Date Ordered Transition in care, clinical summary provided * PHONE CALL with ADAN JEAN MD 12/04/2019 Last Documented On 0 11:32AM ; [facility] Requested request consultati on by specialist * PHONE CALL with ADAN JEAN MD 12/04/2019 Last Documented On 0 11:32AM ; [facility] Ordered follow-up visit as n eeded [...] 11/20/2019 Last Documented On 0 11:42AM ; [facility] Ordered return to the clinic if condition worsens or new symptoms arise PROBLEM VISIT with ADAN JEAN MD 11/20/2019 Last Documented On 0 11:42AM ; [facility] Ordered follow-up visit as d irected Increase respirdone to 0.5 mg Qam and .5 mg to 1mg at bedtime. Stop loraepam Will refer to Psych GENERAL OFFICE VISIT with ADAN JEAN MD 02/13/2019 Last Documented On 0 1:29PM ; [facility] Ordered return to the clinic if condition worsens or new symptoms arise GENERAL OFFICE VISIT with ADAN JEAN MD 02/13/2019 Last Documented On 0 1:29PM ; [facility] Ordered follow-up visit as d irected o/w 6 months Labs:Chem 12, CBC, TSH, B12, at [facility] in [place]. Refer to GI- Patient requests Dr. Avendaño Set up NCS at [facility] MED CHECK with ADAN JEAN MD 09/05/2018 Last Documented On 9 3:44PM ; [facility] Ordered return to the clinic if condition worsens or new symptoms arise MED CHECK with ADAN JEAN MD 09/05/2018 Last Documented On 9 3:44PM ; [facility] Ordered Transition in care, clinical summary provided MED CHECK with ADAN JEAN MD 09/05/2018 Last Documented On 9 3:44PM ; [facility] Requested request consultati on by specialist MED CHECK with ADAN JEAN MD 09/05/2018 Last Documented On 9 3:44PM ; [facility] Ordered follow-up visit as n eeded if no improvement Labs before next visit:N/A Nicoderm patch Start Biaxin Resume omeprazole GENERAL OFFICE VISIT with ADAN JEAN MD 02/14/2018 Last Documented On 9 3:03PM ; [facility] Ordered return to the clinic if condition worsens or new symptoms arise GENERAL OFFICE VISIT with ADAN JEAN MD 02/14/2018 Last Documented On 9 3:03PM ; [facility] Ordered patient will call fo r appointment as needed WALK-IN CLINIC [facility]2017 Last Documented On 7 11:38AM ; [facility] Ordered referred to primary care physician [facility]ALK[facility] Last Documented On 7 11:38AM ; [facility] Ordered return to the clinic if condition worsens or new symptoms arise WALK-IN CLINIC SICK VISIT with MARÍA Tapia [facility] 02/03/2017 Last Documented On 7 11:38AM ; [facility] Ordered Transition in care, clinical summary provided WALK-IN CLINIC SICK VISIT with MARÍA Tapia [facility] 02/03/2017 Last Documented On 7 11:38AM ; [facility] Ordered follow-up visit 6 mo nths Labs before next visit:Chem 12, Continue flonase and OTC claritin Urged to stop smoking Written order given to patient for mammogram. She goes to breast center in [place] GENERAL OFFICE VISIT with ADAN JEAN MD 01/11/2017 Last Documented On 7 12:40PM ; [facility] Ordered return to the clinic if condition worsens or new symptoms arise GENERAL OFFICE VISIT with ADAN JEAN MD 01/11/2017 Last Documented On 7 12:40PM ; [facility] Follow up: As needed SICK VISIT with SAV RAMIREZ [facility] 07/14/2016 Last Documented On 7 2:02PM ; [facility] Ordered return to the clinic if condition worsens or new symptoms arise SICK VISIT with SAV ROMO [facility] 07/14/2016 Last Documented On 7 2:02PM ; [facility] Ordered follow-up visit 6 mo nths, sooner as directed Labs now: Chem 12, CBC, Lipids, TSH Decrease caffeien use Order given for 48 hour holter monitor Will consider referral for stress test if symptoms persist Amoxil for 10 days Start flonase CHECK UP with ADAN JEAN MD 05/25/2016 Last Documented On 7 4:46PM ; [facility] Ordered return to the clinic if condition worsens or new symptoms arise CHECK UP with ADAN JEAN MD 05/25/2016 Last Documented On 7 4:46PM ; [facility] Ordered patient to call if camille turcios develops PROBLEM VISIT with SUSANA JIN PA-C 07/10/2015 Last Documented On 6 11:46AM ; [facility] Ordered return to the clinic if condition worsens or new symptoms arise PROBLEM VISIT with SUSANA JIN PA-C 07/10/2015 Last Documented On 6 11:46AM ; [facility] Ordered follow-up visit 6 mo nths Labs before next visit:N/A Will obtain recent EKGs from [facility] along with EST pt. says was done a year or two ago. Urged to stop smoking. [facility] HOSPITAL FOLLOW UP EXAM with ADAN JEAN MD 09/10/2014 Last Documented On 5 1:07PM ; [facility] Ordered return to the clinic if condition worsens or new symptoms arise HOSPITAL FOLLOW UP EXAM with ADAN JEAN MD 09/10/2014 Last Documented On 5 1:07PM ; [facility] Ordered follow-up visit 6 mo nths Labs before next visit:N/A Refer to rosanna at [facility] GENERAL OFFICE VISIT with ADAN JEAN MD 05/21/2014 Last Documented On 5 5:13PM ; [facility] Ordered return to the clinic if condition worsens or new symptoms arise GENERAL OFFICE VISIT with ADAN JEAN MD 05/21/2014 Last Documented On 5 5:13PM ; [facility] Ordered Transition in care, clinical summary provided GENERAL OFFICE VISIT with ADAN JEAN MD 05/21/2014 Last Documented On 5 5:13PM ; [facility] Ordered follow-up visit 12 m onths Labs before next visit: N/A Continue omeprazole 20 mg QD F/U with surgeon as directed Follow up with neurosurgeons as directed 6 MONTH CHECK with ADAN JEAN MD 10/24/2012 Last Documented On 3 1:05PM ; [facility] Ordered return to the clinic if condition worsens or new symptoms arise 6 MONTH CHECK with ADAN JEAN MD 10/24/2012 Last Documented On 3 1:05PM ; [facility] Ordered follow-up visit 6 mo nths Labs before next visit: N/A Cleared for carpal tunnel surgery urged to stop smoking 6 MONTH CHECK with ADAN JEAN MD 04/18/2012 Last Documented On 3 1:30PM ; [facility] Ordered return to the clinic if condition worsens or new symptoms arise 6 MONTH CHECK with ADAN JEAN MD 04/18/2012 Last Documented On 3 1:30PM ; [facility] Ordered follow-up visit 6 mo nt Check Chem 12, lipids, CBC in 6 months She will follow up with her gyne re: bladder issues She will f/u at [place] re: carpal tunnel Advised to try nicotine replacement, either patches, gum or lozenges Will obtain recent test results from [place] 6 MONTH CHECK with ADAN JEAN MD 10/19/2011 Last Documented On 2 9:47AM ; [facility] Ordered return to the clinic if condition worsens or new symptoms arise 6 MONTH CHECK with ADAN JEAN MD 10/19/2011 Last Documented On 2 9:47AM ; [facility] Ordered follow-up visit as d irected after testing Set up NCS Check CXR GENERAL OFFICE VISIT with ADAN JEAN MD 06/29/2011 Last Documented On 2 5:53PM ; [facility] Ordered return to the clinic if condition worsens or new symptoms arise GENERAL OFFICE VISIT with ADAN JEAN MD 06/29/2011 Last Documented On 2 5:53PM ; [facility] Ordered follow-up visit 6 mo [facility] recommended wrist splint for left hand Written order given for lipids, chem 12, cbc, B12, Tsh 6 MONTH CHECK with ADAN JEAN MD 04/20/2011 Last Documented On 2 5:58PM ; [facility] Ordered return to the clinic if condition worsens or new symptoms arise 6 MONTH CHECK with ADAN JEAN MD 04/20/2011 Last Documented On 2 5:58PM ; [facility] Ordered follow-up visit months 6 MONTH CHECK wit meli CAAL PA-C 10/21/2010 Last Documented On 1 10:16AM ; [facility] Ordered return to the clinic if condition worsens or new symptoms arise 6 MONTH CHECK with KAITLIN CAAL PA-C 10/21/2010 Last Documented On 1 10:16AM ; [facility] 1. Push fluids 2. Rest 3. Co ntrol fever with Tylenol +/- Motrin if able to tolerate 4. OTC Mucinex and cough syrup if tolerated 5. Off work/Out of school:N/A 6. Follow up if no improvement in 3-5 days 6 MONTH CHECK with ADAN JEAN MD 04/20/2010 Last Documented On 1 12:10PM ; [facility] Ordered follow-up visit 6 months 6 MONTH CHECK w te ADAN JEAN MD 04/20/2010 Last Documented On 1 12:10PM ; [facility] Ordered return to the clinic if condition worsens or new symptoms arise 6 MONTH CHECK with ADAN JEAN MD 04/20/2010 Last Documented On 1 12:10PM ; [facility] Ordered follow-up visit months GENERAL OFFICE SIT with ADAN JEAN MD 10/22/2009 Last Documented On 0 1:19PM ; [facility] Ordered return to the clinic if condition worsens or new symptoms arise GENERAL OFFICE VISIT with ADAN JEAN MD 10/22/2009 Last Documented On 0 1:19PM ; [facility] 1. Push fluids 2. Rest 3. Co ntrol fever with Tylenol +/- Motrin if able to tolerate 4. OTC Mucinex and cough syrup if tolerated 5. Off work/Out of school:N/A 6. Follow up if no improvement in 3-5 days SICK VISIT with ADAN JEAN MD 05/28/2009 Last Documented On 0 12:49PM ; [facility] Referrals To Diagnosis ENT Specialist CHRONIC SINUSITI S NOS Last Documented On 1 4:25PM ; [facility] Other [address] [address] - Skin Sensation Disturb Note: Nerve conduction studi es B UE and B LE Last Documented On 2 4:43PM ; [facility] Other Note: Dr. Palmer as matt solange by pt. Last Documented On 2 4:43PM ; [facility] Neurosurgeon NONRUPT CEREBRAL ANEURYM Note: o eurosurgeon Clinic mayank Walker. Wherever she has gone before Last Documented On 5 8:37AM ; [facility] Senior Technical Support Engineer AHMAD A KARADAGHY Dysphagia, unspecified Note: Dysphagie, GERD and IB S Last Documented On 9 10:00AM ; [facility] Psychiatrist [address] [id number] - Bipolar disorder, unspecified Note: Pt. requests Psych at [facility] or at least in [place] if possible. Last Documented On 0 3:48PM ; [facility] Neurologist [facility] [place] [address] - Migraine with aura, not intractable, w/o status migrainosus Last Documented On 4 2:16PM ; [facility] Instructions to patient Instructions for patient Last Documented On 7 10:33AM ; [facility] Education and Decision Aids were provided during visit for: Parent education about immun izations Discussed: ~Risks/Benefits of vaccine components discussed ~Discussed possible side effects of each component and when to call the office. ~ Last Documented On 7 11:52AM ; [facility] Parent education about immun izations VIS# [id number] ~Discussed:Y ~Risks/Benefits of vaccine components discussedY ~Discussed possible side effects of each component and when to call the office.Y Last Documented On 7 11:52AM ; [facility] Patient education about anti biotics: need to finish even if feeling better Last Documented On 9 9:39AM ; [facility] Assessments Includes: Assessments for all patient encounters Findings Encounter Date Cerebral artery aneurysm * PHONE CALL with SHELLI JEAN MD 12/04/2019 Last Documented On 0 11:32AM ; [facility] Classic migraine (with aura) without intractable migraine without status migrainosus * PHONE CALL with ADAN JEAN MD 12/04/2019 Last Documented On 0 11:32AM ; [facility] Classic migraine (with aura) PROBLEM VISIT with ADAN JEAN MD 11/20/2019 Last Documented On 0 11:42AM ; [facility] Moderate bipolar disorder PROBLEM VISIT with KELSEY JEAN MD 11/20/2019 Last Documented On 0 11:42AM ; [facility] Schizophrenia in remission PROBLEM VISIT with DIANE JEAN MD 11/20/2019 Last Documented On 0 11:42AM ; [facility] Urinary tract infection * PHONE CALL with MICHAEL JEAN MD 03/01/2019 Last Documented On 0 9:30AM ; [facility] Moderate bipolar disorder GENERAL OFFICE VISIT w te JEAN MD 02/13/2019 Last Documented On 0 1:29PM ; [facility] Secondary insomnia GENERAL OFFICE VISIT with KELSEY JEAN MD 02/13/2019 Last Documented On 0 1:29PM ; [facility] Bipolar I disorder, currentl y in remission [Patient Encounter] with ADAN JEAN MD 12/26/2018 Last Documented On 9 12:59PM ; [facility] Schizophrenia in remission [Patient Encounter] w te JEAN MD 12/26/2018 Last Documented On 9 12:59PM ; [facility] Urinary tract infection * PHONE CALL with ELLIOTT ORR 11/14/2018 Last Documented On 9 10:13AM ; [facility] Dysphagia MED CHECK with ADAN JEAN MD 09/05/2018 Last Documented On 9 3:44PM ; [facility] GERD MED CHECK with ADAN JEAN MD 09/05/2018 Last Documented On 9 3:44PM ; [facility] Irritable bowel syndrome MED CHECK with ADAN JEAN MD 09/05/2018 Last Documented On 9 3:44PM ; [facility] Peripheral sensory neuropathy MED CHECK with KELSEY JEAN MD 09/05/2018 Last Documented On 9 3:44PM ; [facility] Acute maxillary sinusitis GENERAL OFFICE VISIT w te JEAN MD 02/14/2018 Last Documented On 9 3:03PM ; [facility] GERD GENERAL OFFICE VISIT with MICHAEL JEAN MD 02/14/2018 Last Documented On 9 3:03PM ; [facility] Nicotine dependence GENERAL OFFICE VISIT with DIANE JEAN MD 02/14/2018 Last Documented On 9 3:03PM ; [facility] Influenza type A WALK-IN CLINIC SICK VISIT with MARÍA Willie KING HALFTONE OPERATOR- 02/03/2017 Last Documented On 7 11:38AM ; [facility] Allergic rhinitis GENERAL OFFICE VISIT with BERONICA JEAN MD 01/11/2017 Last Documented On 7 12:40PM ; [facility] Hyperlipidemia GENERAL OFFICE VISIT with MICHAEL JEAN MD 01/11/2017 Last Documented On 7 12:40PM ; [facility] Irritable bowel syndrome GENERAL OFFICE VISIT wi ADAN JEAN MD 01/11/2017 Last Documented On 7 12:40PM ; [facility] Irritable bowel syndrome GENERAL OFFICE VISIT [facility] ADAN JEAN MD 01/11/2017 Last Documented On 7 12:40PM ; [facility] Irritant contact dermatitis SICK VISIT with SPIKE ROMO HALFTONE OPERATOR 07/14/2016 Last Documented On 7 2:02PM ; [facility] Acute sinusitis CHECK UP with ADAN JEAN MD 05/25/2016 Last Documented On 7 4:46PM ; [facility] Allergic rhinitis CHECK UP with ADAN Dickerson 05/25/2016 Last Documented On 7 4:46PM ; [facility] Atypical chest pain CHECK UP with ADAN JEAN MD 05/25/2016 Last Documented On 7 4:46PM ; [facility] Palpitations CHECK UP with ADAN JEAN MD 05/25/2016 Last Documented On 7 4:46PM ; [facility] Dysuria PROBLEM VISIT with SUSANA PARIKH PA-C 07/10/2015 Last Documented On 6 11:46AM ; [facility] Lumbago PROBLEM VISIT with SUSANA JOSE-Gertrude 07/10/2015 Last Documented On 6 11:46AM ; [facility] Smoking Cessation PROBLEM VISIT with SUSANA JOSE-C 07/10/2015 Last Documented On 6 11:46AM ; [facility] Tobacco Abuse PROBLEM VISIT with SUSANA PARIKH PA-C 07/10/2015 Last Documented On 6 11:46AM ; [facility] Varicose veins of lower extremities PROB [place] VISIT with SUSANA JIN PA-C 07/10/2015 Last Documented On 6 11:46AM ; [facility] Discharge diagnosis of PRIMA RY CARE PROVIDER : DR. CHAMBERS SAME DAY SICK VISIT with TIA Mayank KAHISRRAEL [facility]- 01/26/2015 Last Documented On 5 4:12PM ; [facility] Streptococcal sore throat SAME DAY SICK VISIT with TIA A KAHRIG HALFTONE OPERATOR-BC 01/26/2015 Last Documented On 5 4:12PM ; [facility] Viral gastroenteritis SAME DAY S[facility]- 01/26/2015 Last Documented On 5 4:12PM ; [facility] Acute sinusitis HOSPITAL FOLLOW UP EXAM with KELSEY JEAN MD 09/10/2014 Last Documented On 5 1:07PM ; [facility] Cerebral artery aneurysm HOSPITAL FOLLOW UP EXAM with ADAN JEAN MD 09/10/2014 Last Documented On 5 1:07PM ; [facility] Dependence on nicotine in cigarettes HOS PITAL FOLLOW UP EXAM with ADAN JEAN MD 09/10/2014 Last Documented On 5 1:07PM ; [facility] Disturbance in skin or paresthesia HOSPI DECLAN FOLLOW UP EXAM with ADAN JEAN MD 09/10/2014 Last Documented On 5 1:07PM ; [facility] Cerebral artery aneurysm GENERAL OFFICE VISIT [facility] ADAN JEAN MD 05/21/2014 Last Documented On 5 5:13PM ; [facility] Carpal tunnel syndrome 6 MONTH CHECK with MICHAEL JEAN MD 10/24/2012 Last Documented On 3 1:05PM ; [facility] GERD 6 MONTH CHECK with ADAN Campos MD 10/24/2012 Last Documented On 3 1:05PM ; [facility] Irritable bowel syndrome 6 MONTH CHECK with BERONICA JEAN MD 10/24/2012 Last Documented On 3 1:05PM ; [facility] Carpal tunnel syndrome 6 MONTH CHECK with MICHAEL JEAN MD 04/18/2012 Last Documented On 3 1:30PM ; [facility] Cerebral artery aneurysm 6 MONTH CHECK with BERONICA JEAN MD 04/18/2012 Last Documented On 3 1:30PM ; [facility] Irritable bowel syndrome 6 MONTH CHECK with BERONICA JEAN MD 04/18/2012 Last Documented On 3 1:30PM ; [facility] Carpal tunnel syndrome 6 MONTH CHECK with MICHAEL JEAN MD 10/19/2011 Last Documented On 2 9:47AM ; [facility] Cerebral artery aneurysm 6 MONTH CHECK with BERONICA JEAN MD 10/19/2011 Last Documented On 2 9:47AM ; [facility] Hyperlipidemia 6 MONTH CHECK with ADAN Campos MD 10/19/2011 Last Documented On 2 9:47AM ; [facility] Irritable bowel syndrome 6 MONTH CHECK with BERONICA JEAN MD 10/19/2011 Last Documented On 2 9:47AM ; [facility] Tobacco Abuse 6 MONTH CHECK with ADAN Campos MD 10/19/2011 Last Documented On 2 9:47AM ; [facility] Cerebral artery aneurysm GENERAL OFFICE VISIT wi ADAN JEAN MD 06/29/2011 Last Documented On 2 5:53PM ; [facility] Cough GENERAL OFFICE VISIT with MICHAEL JEAN MD 06/29/2011 Last Documented On 2 5:53PM ; [facility] Disturbance in skin or paresthesia GENER AL OFFICE VISIT with ADAN JEAN MD 06/29/2011 Last Documented On 2 5:53PM ; [facility] Carpal tunnel syndrome left 6 MONTH CHECK with Stephen JEAN MD 04/20/2011 Last Documented On 2 5:58PM ; [facility] Cerebral artery aneurysm 6 MONTH CHECK with BERONICA JEAN MD 04/20/2011 Last Documented On 2 5:58PM ; [facility] Fatigue 6 MONTH CHECK with ADAN Campos MD 04/20/2011 Last Documented On 2 5:58PM ; [facility] Hyperlipidemia 6 MONTH CHECK with ADAN Campos MD 04/20/2011 Last Documented On 2 5:58PM ; [facility] Irritable bowel syndrome 6 MONTH CHECK with BERONICA JEAN MD 04/20/2011 Last Documented On 2 5:58PM ; [facility] Allergic rhinitis 6 MONTH CHECK with KAITLIN DE LUNAPREDITH PA-C 10/21/2010 Last Documented On 1 10:16AM ; [facility] Cerebral artery aneurysm 6 MONTH CHECK with GARRY STEPHANIE Dickerson ZIPPRICH PA-C 10/21/2010 Last Documented On 1 10:16AM ; [facility] Hyperlipidemia 6 MONTH CHECK with KAITLIN LARSENCH PA-C 10/21/2010 Last Documented On 1 10:16AM ; [facility] Irritable bowel syndrome 6 MONTH CHECK with GARRY SSA Tuan ZIPPRICH PA-C 10/21/2010 Last Documented On 1 10:16AM ; [facility] Chronic sinusitis * PHONE CALL with DARREN JOSE-C 06/24/2010 Last Documented On 1 11:24AM ; [facility] Chronic sinusitis GENERAL OFFICE VISIT with ARIK DORANTESC 06/14/2010 Last Documented On 1 12:38PM ; [facility] Tooth Abscess GENERAL OFFICE VISIT with TERRI VALENTEC 06/14/2010 Last Documented On 1 12:38PM ; [facility] Acute sinusitis 6 MONTH CHECK with ADAN Campos MD 04/20/2010 Last Documented On 1 12:10PM ; [facility] Cerebral artery aneurysm 6 MONTH CHECK with BERONICA JEAN MD 04/20/2010 Last Documented On 1 12:10PM ; [facility] Hyperlipidemia 6 MONTH CHECK with ADAN Campos MD 04/20/2010 Last Documented On 1 12:10PM ; [facility] Irritable bowel syndrome 6 MONTH CHECK with BERONICA JEAN MD 04/20/2010 Last Documented On 1 12:10PM ; [facility] Allergic rhinitis GENERAL OFFICE VISIT with BERONICA JEAN MD 10/22/2009 Last Documented On 0 1:19PM ; [facility] Cerebral artery aneurysm GENERAL OFFICE VISIT [facility] ADAN JEAN MD 10/22/2009 Last Documented On 0 1:19PM ; [facility] Hyperlipidemia GENERAL OFFICE VISIT with MICHAEL JEAN MD 10/22/2009 Last Documented On 0 1:19PM ; [facility] Irritable bowel syndrome GENERAL OFFICE VISIT [facility] ADAN JEAN MD 10/22/2009 Last Documented On 0 1:19PM ; [facility] Acute sinusitis SICK VISIT with ADAN Dickerson 05/28/2009 Last Documented On 0 12:49PM ; [facility] EXCESSIVE THIRST SICK VISIT with ADAN JEAN MD 05/28/2009 Last Documented On 0 12:49PM ; [facility] Hyperlipidemia SICK VISIT with ADAN Dickerson 05/28/2009 Last Documented On 0 12:49PM ; [facility] Acute sinusitis SICK VISIT with WALKER ORR-Gertrude 01/24/2009 Last Documented On 9 9:41AM ; [facility] Instructions Includes: Instructions for all patient encounters Instructions to patient Instructions for patient Last Documented On 7 10:33AM ; [facility] Education and Decision Aids were provided during visit for: Parent education about immun izations Discussed: ~Risks/Benefits of vaccine components discussed ~Discussed possible side effects of each component and when to call the office. ~ Last Documented On 7 11:52AM ; [facility] Parent education about immun izations VIS# [id number] ~Discussed:Y ~Risks/Benefits of vaccine components discussedY ~Discussed possible side effects of each component and when to call the office.Y Last Documented On 7 11:52AM ; [facility] Patient education about anti biotics: need to finish even if feeling better Last Documented On 9 9:39AM ; [facility] Medical Equipment - Implanted Devices Includes: Current and historical Devices No Medical Equipment Recorded Medications Includes: Current and historical Medications Current Medications (continue as prescribed) Cetirizine HCl 10 MG Oral Tablet 03/09/2020 Provider : ADAN JEAN MD Diagnosis: TAKE 1 TABLET BY MOUTH DAILY Last Documented On 03/09/2020 1:46PM By ADAN JEAN MD ; [facility] Amitriptyline HCl 10 MG Oral Tablet 03/09/2020 Provi kevin: ADAN JEAN MD Diagnosis: TAKE 2 TABLETS BY MOUTH AT BEDTIME DIRECTED Last Documented On 03/09/2020 1:45PM By ADAN JEAN MD ; [facility] risperiDONE 0.5 MG Oral Tablet Disintegrating 11/29/19 Provider: ADAN JEAN MD Diagnosis: one tab po QD as needed for acute anxiety Last Documented On 11/29/2019 9:24AM By ADAN JEAN MD ; [facility] risperiDONE 0.5 MG Oral Tablet 11/29/2019 Provider: ADAN JEAN MD Diagnosis: 2 tabs QHS Last Documented On 11/29/2019 9:24AM By ADAN JEAN MD ; [facility] Melatonin 10 MG Oral Capsule 11/20/2019 Provider : Diagnosis: OTC Last Documented On 0 2:05PM By CANDY REYES LPN ; [facility] Cetirizine HCl 10 MG Oral Tablet 11/20/2019 Provider : Diagnosis: Last Documented On 0 2:01PM By CANDY REYES LPN ; [facility] Famotidine 40 MG Oral Tablet 11/20/2019 Provider: Diagnosis: Last Documented On 0 2:00PM By CANDY REYES LPN ; [facility] OXcarbazepine 300 MG Oral Tablet 10/23/2019 Provider : ADAN JEAN MD Diagnosis: TAKE 3 TABLETS BY MOUTH AT BEDTIME Last Documented On 10/23/2019 1:40PM By ADAN JEAN MD ; [facility] Linzess 72MCG Oral Capsule 09/05/2018 Provider: Stephen JEAN MD Diagnosis: One tablet daily Last Documented On 09/05/2018 12:01PM By ADAN JEAN MD ; [facility] Omeprazole 20MG Oral Capsule , delayed-release 02/14/2018 Provider: ADAN JEAN MD Diagnosis: Gastro-esophagea l reflux disease with esophagitis One tablet daily Last Documented On 02/14/2018 2:59PM By ADAN JEAN MD ; [facility] Past Medications on file risperiDONE 0.5 MG Oral Tabl et Disintegrating 09/30/2019 - 11/27/2019 Provider: ADAN Dickerson Diagnosis: 1-2 tabs po QHS Last Documented On 11/27/2019 2:45PM By SANDRA MOORE ; [facility] Amitriptyline HCl 10 MG Oral Tablet 05/29/2019 - 03/09/2020 Provider: ADAN Dickerson Diagnosis: as directed TAKE TWO TABLETS AT HS Last Documented On 03/09/2020 1:44PM By ADAN JEAN MD ; [facility] Amitriptyline HCl 10 MG Oral Tablet 05/29/2019 - 08/26 Provider: Diagnosis: TAKE TWO TABLETS AT HS Last Documented On 05/29/2019 11:13AM By BRAEDEN VALADEZ ; [facility] Macrobid 100 MG Oral Capsule 04/25/2019 - 05/02/2019 Provider: ADAN Dickerson Diagnosis: Urinary tract infection, site not specified One tablet twice a day Last Documented On 04/25/2019 9:59AM By ADAN JEAN MD ; [facility] Macrobid 100 MG Oral Capsule 03/01/2019 - 04/25/2019 Provider: SAV ROMO HALFTONE OPERATOR Diagnosis: Urinary tract infection, site not specified One tablet twice a day Last Documented On 04/25/2019 9:51AM By ADAN JEAN MD ; [facility] OXcarbazepine 300 MG Oral Tablet 02/25/2019 - 10/23/2019 Provider: SAV ROMO HALFTONE OPERATOR Diagnosis: TAKE 3 TABLETS BY MOUTH AT BEDTIME Last Documented On 10/23/2019 1:26PM By ADAN JEAN MD ; [facility] RisperDAL 0.5 MG Oral Tablet 12/05/2018 - 09/30/2019 Camille teixeira: ADAN JEAN MD Diagnosis: TAKE ONE TABLET BY MOUTH JEAN RY NIGHT AT BEDTIME. MAY TAKE A SECOND TABLET IF NEEDED Last Documented On 09/30/2019 3:12PM By ADAN JEAN MD ; [facility] buPROPion HCl ER (SR) 150 MG Oral Tablet Extended Release 12 Hour 12/05/2018 - 11/20/2019 Provider: SAV ROMO HALFTONE OPERATOR Diagnosis: One tablet twice a day Last Documented On 0 2:01PM By CANDY REYES LPN ; [facility] Macrobid 100 MG Oral Capsule 11/14/2018 - 11/20/2019 Provider: SAV ROMO HALFTONE OPERATOR Diagnosis: Urinary tract infection, site not specified One tablet twice a day Last Documented On 0 1:57PM By CANDY REYES LPN ; [facility] ZyrTEC Allergy 10 MG Oral Tablet 10/24/2018 - 03/09/19 21 Provider: ADAN JEAN MD Diagnosis: 1 daily Last Documented On 03/09/2020 1:45PM By ADAN JEAN MD ; [facility] Amitriptyline HCl 10 MG Oral Tablet 10/16/2018 - 10/11/2019 Provider: SAV ROMO HALFTONE OPERATOR Diagnosis: TAKE 1 TABLET BY MOUTH EVERY NIGHT AT BEDTIME Last Documented On 10/16/2018 8:24AM By SAV ROMO MINE ANALYST ; [facility] OXcarbazepine 300MG Oral Tablet 09/18/2018 - 0 Provider: SAV ROMO HALFTONE OPERATOR Diagnosis: TAKE 3 TABLETS BY MOUTH AT BEDTIME Last Documented On 02/25/2019 8:31AM By SAV ROMO MINE ANALYST ; [facility] RisperDAL 0.5MG Oral Tablet 09/05/2018 - 12/05/2018 Pr ovider: ADAN JEAN MD Diagnosis: TAKE ONE TABLET BY MOUTH JEAN RY NIGHT AT BEDTIME. MAY TAKE A SECOND TABLET IF NEEDED Last Documented On 12/05/2018 1:01PM By ADAN JEAN MD ; [facility] buPROPion HCl ER (SR) 150MG Oral Tablet Extended Release 12 Hour 09/05/2018 - 02/13/2019 Provider: Diagnosis: Last Documented On 0 11:44AM By CANDY REYES LPN ; [facility] Linzess 72MCG Oral Capsule 09/05/2018 - 10/31/2019 Pro vider: Diagnosis: Last Documented On 10/31/2019 3:40PM By SANDRA MOORE ; [facility] buPROPion HCl ER (SR) 150MG Oral Tablet Extended Release 12 Hour 09/05/2018 - 12/05/2018 Provider: BERONICA JEAN MD Diagnosis: One tablet daily Last Documented On 12/05/2018 8:14AM By SAV ROMO MINE ANALYST ; [facility] OXcarbazepine 300MG Oral Tablet 08/21/2018 - 9 Provider: SAV ORR Diagnosis: TAKE 3 TABLETS BY MOUTH AT BEDTIME, needs appt Last Documented On 09/18/2018 8:04AM By SAV ROMO MINE ANALYST ; [facility] Amoxicillin 875MG Oral Tablet 06/28/2018 - 11/20/2019 Provider: ADAN JEAN MD Diagnosis: One tablet twice a day Last Documented On 0 1:56PM By CANDY REYES LPN ; [facility] Amitriptyline HCl 10MG Oral Tablet 04/23/2018 - 10/16/2018 Provider: SAV ORR Diagnosis: TAKE 1 TABLET BY MOUTH EVERY NIGHT AT BEDTIME Last Documented On 10/16/2018 8:08AM By SVA ROMO MINE ANALYST ; [facility] Sulfamethoxazole-Trimethopri m 400-80MG Oral Tablet 04/03/2018 - 04/10/2018 Provider: ADAN JEAN MD Diagnosis: One tablet twice a day Last Documented On 04/03/2018 1:10PM By ADAN JEAN MD ; [facility] OXcarbazepine 300MG Oral Tablet 02/19/2018 - 9 Provider: SAV GUADALUPEP Diagnosis: TAKE 3 TABLETS BY MOUTH AT BEDTIME Last Documented On 08/21/2018 8:30AM By SAV ROOM MINE ANALYST ; [facility] Chantix Continuing Month Andrea 1MG Oral Tablet 02/16/2018 - 10/31/2019 Provider: ADAN Dickerson Diagnosis: as directed Last Documented On 10/31/2019 3:39PM By SANDRA MOORE ; [facility] Chantix Starting Month Andrea 0 .5 MG X 11 &1 MG X 42 Oral Tablet 02/16/2018 - 10/31/2019 Provider: ADAN JEAN MD Diagnosis: as directed Last Documented On 10/31/2019 3:39PM By SANDRA MOORE ; [facility] Nicoderm CQ 14MG/24HR Transdermal Patch 24 Hour 02/14/2018 - 11/20/2019 Provider: ADAN JEAN MD Diagnosis: Nicotine depende nce, cigarettes, uncomplicated change every 24 hours Last Documented On 0 1:57PM By CANDY REYES LPN ; [facility] Nicoderm CQ 21MG/24HR Transdermal Patch 24 Hour 02/14/2018 - 11/20/2019 Provider: ADAN JEAN MD Diagnosis: Nicotine depende nce, cigarettes, uncomplicated change patch q 24 hours Last Documented On 0 1:57PM By CANDY REYES LPN ; [facility] Biaxin 500MG Oral Tablet 02/14/2018 - 11/22/2019 Provider: ADAN Dickerson Diagnosis: Acute maxillary sinusitis, unspecified One tablet twice a day Last Documented On 0 1:46PM By CANDY REYES LPN ; [facility] Nicoderm CQ 7MG/24HR Transdermal Patch 24 Hour 02/14/2018 - 11/20/2019 Provider: ADAN JEAN MD Diagnosis: Nicotine depende nce, cigarettes, uncomplicated change every 24 hours Last Documented On 0 1:57PM By CANDY REYES LPN ; [facility] OXcarbazepine 300MG Oral Tablet 01/22/2018 - 9 Provider: SAV ROMO HALFTONE OPERATOR Diagnosis: TAKE 3 TABLETS BY MOUTH AT BEDTIME, needs appt Last Documented On 02/19/2018 8:20AM By SAV ROMO NP ; [facility] Amitriptyline HCl 10MG Oral Tablet 01/22/2018 - 04/23/2018 Provider: SAV ROMO HALFTONE OPERATOR Diagnosis: TAKE 1 TABLET BY MOUTH EVERY NIGHT AT BEDTIME, needs appt Last Documented On 04/23/2018 8:21AM By SAV ROMO NP ; [facility] Amoxicillin 875MG Oral Tablet 01/22/2018 - 06/28/2018 Provider: ADAN JEAN MD Diagnosis: One tablet twice a day Last Documented On 06/28/2018 1:19PM By ADAN JEAN MD ; [facility] BuPROPion HCl ER (Smoking De t) 150MG Oral Tablet Extended Release 12 Hour 11/15/2017 - 01/05/2018 Provider: ADAN Dickerson Diagnosis: One tablet twice a day Last Documented On 8 1:43PM By CANDY REYES LPN ; [facility] RisperDAL 0.5MG Oral Tablet 08/22/2017 - 09/05/2018 Pr ovider: ADAN JEAN MD Diagnosis: TAKE ONE TABLET BY MOUTH JEAN RY NIGHT AT BEDTIME. MAY TAKE A SECOND TABLET IF NEEDED Last Documented On 09/05/2018 10:38AM By ADAN JEAN MD ; [facility] OXcarbazepine 300MG Oral Tablet 07/25/2017 - 8 Provider: SAV ROMO HALFTONE OPERATOR Diagnosis: TAKE 3 TABLETS BY MOUTH AT BEDTIME Last Documented On 01/22/2018 9:06AM By SAV ROMO MINE ANALYST ; [facility] Amoxicillin 875MG Oral Tablet 07/19/2017 - 01/22/2018 Provider: ADAN JEAN MD Diagnosis: One tablet twice a day Last Documented On 01/22/2018 1:17PM By ADAN JEAN MD ; [facility] ZyrTEC Allergy 10MG Oral Tablet 07/19/2017 - 9 Provider: ADAN JEAN MD Diagnosis: 1 daily Last Documented On 10/24/2018 9:26AM By ADAN JEAN MD ; [facility] Amoxicillin 875MG Oral Tablet 03/02/2017 - 07/19/2017 Provider: ADAN JEAN MD Diagnosis: One tablet twice a day Last Documented On 07/19/2017 10:59AM By ADAN JEAN MD ; [facility] Amitriptyline HCl 10MG Oral Tablet 02/07/2017 - 01/22/2018 Provider: SAV ROMO HALFTONE OPERATOR Diagnosis: TAKE 1 TABLET BY MOUTH EVERY NIGHT AT BEDTIME Last Documented On 01/22/2018 9:05AM By SAV ROMO MINE ANALYST ; [facility] Azithromycin 250MG Oral Tablet 02/07/2017 - 02/13/2019 Provider: ADAN JEAN MD Diagnosis: 2 tabs on day one then one tab on days 2-5 Last Documented On 0 11:43AM By CANDY REYES LPN ; [facility] Oseltamivir Phosphate 75MG Oral Capsule 02/03/2017 - 01/05/2018 Provider: MARÍA MALIK HALFTONE OPERATOR- Diagnosis: Flu due to ident novel influenza A virus w oth manifest 1 CAPSULE TWO TIMES A DAY Last Documented On 8 1:43PM By CANDY REYES LPN ; [facility] OXcarbazepine 300MG Oral Tablet 01/25/2017 - 8 Provider: SAV ROMO HALFTONE OPERATOR Diagnosis: TAKE 3 TABLETS BY MOUTH AT BEDTIME Last Documented On 07/25/2017 8:22AM By SAV ROMO MINE ANALYST ; [facility] Fluticasone Propionate 50MCG/ACT Nasal Suspension 01/20/2017 - 07/19/2017 Provider: JOE STOKES PA-C Diagnosis: 2 sprays each nostril once daily fill with gener ic Last Documented On 7 12:02PM By JOE STOKES PA-C ; [facility] Linzess 145MCG Oral Capsule, conventional 01/11/2017 - 02/13/2019 Provider: ADAN Dickerson Diagnosis: One tablet daily Last Documented On 0 11:44AM By CANDY REYES LPN ; [facility] OXcarbazepine 300MG Oral Tablet 12/26/2016 - 7 Provider: SAV ROMO HALFTONE OPERATOR Diagnosis: TAKE 3 TABLETS BY MOUTH AT BEDTIME Last Documented On 01/25/2017 8:25AM By SAV ROMO NP ; [facility] Amitriptyline HCl 10MG Oral Tablet 11/04/2016 - 02/07/2017 Provider: SAV ROMO HALFTONE OPERATOR Diagnosis: TAKE 1 TABLET BY MOUTH EVERY NIGHT AT BEDTIME Last Documented On 02/07/2017 8:12AM By SAV ROMO NP ; [facility] Medrol 4MG Oral Tablet Therapy Pack 07/14/2016 - 02/14/2018 Provider: SAV ROMO HALFTONE OPERATOR Diagnosis: Irritant contact dermatitis, unspecified cause as directed Last Documented On 9 2:10PM By CANDY REYES LPN ; [facility] OXcarbazepine 300MG Oral Tablet 07/06/2016 - 7 Provider: SAV ROMO HALFTONE OPERATOR Diagnosis: TAKE 3 TABLETS BY MOUTH AT BEDTIME Last Documented On 12/26/2016 8:21AM By SAV ROMO NP ; [facility] OXcarbazepine 300MG Oral Tablet 06/02/2016 - 07/06/2016 Provider: CRISSY LI HALFTONE OPERATOR-BC Diagnosis: TAKE 3 TABLETS BY MOUTH AT BEDTIME Last Documented On 07/06/2016 10:32AM By SAV ROMO MINE ANALYST ; [facility] Linzess 145MCG Oral Capsule 05/25/2016 - 02/14/2018 Pr ovider: Diagnosis: Last Documented On 9 2:09PM By CANDY REYES LPN ; [facility] Fluticasone Propionate 50MCG /ACT Nasal Suspension 05/25/2016 - 01/20/2017 Provider: ADAN Dickerson Diagnosis: 2 sprays each nostril once daily fill with gener ic Last Documented On 7 11:56AM By JOE STOKES PA-C ; [facility] Amoxicillin 875MG Oral Tablet 05/25/2016 - 03/02/2017 Provider: ADAN JEAN MD Diagnosis: One tablet twice a day Last Documented On 03/02/2017 11:06AM By ADAN JEAN MD ; [facility] RisperDAL 0.5MG Oral Tablet 05/25/2016 - 08/22/2017 Pr ovider: ADAN JEAN MD Diagnosis: TAKE 1 TABLET BY MOUTH EVERY NIGHT AT BEDTIME. MAY TAKE A SECOND TABLET IF NEEDED. Last Documented On 08/22/2017 8:55AM By ADAN JEAN MD ; [facility] Amoxicillin 875MG Oral Tablet 05/12/2016 - 05/25/2016 Provider: ADAN JEAN MD Diagnosis: One tablet twice a day Last Documented On 05/25/2016 3:54PM By ADAN JEAN MD ; [facility] OXcarbazepine 300MG Oral Tablet 05/05/2016 - 06/02/2016 Provider: CRISSY GUADALUPEP- Diagnosis: TAKE 3 TABLETS BY MOUTH AT BEDTIME Last Documented On 7 9:30AM By CRISSY GUADALUPEP-BC ; [facility] Azithromycin 250MG Oral Tablet 04/20/2016 - 02/07/2017 Provider: ADAN JEAN MD Diagnosis: 2 tabs on day one then one tab on days 2-5 Last Documented On 02/07/2017 12:56PM By ADAN JEAN MD ; [facility] OXcarbazepine 300MG Oral Tablet 04/04/2016 - 05/05/2016 Provider: CRISSY LI HALFTONE OPERATOR-BC Diagnosis: TAKE 3 TABLETS BY MOUTH AT BEDTIME Last Documented On 7 10:54AM By CRISSY CELESTIN HALFTONE OPERATOR-BC ; [facility] OXcarbazepine 300MG Oral Tablet 03/03/2016 - 04/04/2016 Provider: CRISSY LI HALFTONE OPERATOR-BC Diagnosis: TAKE 3 TABLETS BY MOUTH AT BEDTIME Last Documented On 7 2:56PM By CRISSY CELESTIN [facility] ; [facility] OXcarbazepine 300 MG Tablet 02/04/2016 - 03/03/2016 Pr ovider: CRISSY CELESTIN HALFTONE OPERATOR-BC Diagnosis: TAKE 3 TABLETS BY MOUTH AT BEDTIME Last Documented On 7 8:37AM By CRISSY CELESTIN [facility]-BC ; [facility] OXcarbazepine 300 MG Tablet 01/07/2016 - 02/04/2016 Pr ovider: CRISSY CELESTIN HALFTONE OPERATOR-BC Diagnosis: TAKE 3 TABLETS BY MOUTH AT BEDTIME Last Documented On 6 9:55AM By CRISSY CELESTIN [facility]-BC ; [facility] Chantix Starting Month Andrea 0.5 MG X 11 & 1 MG X 42 Tablet 11/27/2015 - 01/11/2017 Provider: KIRAN ORR-C Diagnosis: Nicotine depende nce, unspecified, uncomplicated as directed Last Documented On 7 10:13AM By CANDY REYES LPN ; [facility] OXcarbazepine 300 MG Tablet 10/05/2015 - 02/14/2018 Pr ovider: CRISSY CELESTIN HALFTONE OPERATOR-BC Diagnosis: TAKE 3 TABLETS BY MOUTH AT BEDTIME Last Documented On 9 2:10PM By CANDY REYES LPN ; [facility] Estradiol 0.5 MG Tablet 09/18/2015 - 09/12/2016 Provid er: CRISSY CELESTIN HALFTONE OPERATOR-BC Diagnosis: 1 daily Last Documented On 6 11:17AM By CRISSY CELESTIN HALFTONE OPERATOR-BC ; [facility] Azithromycin 250 MG Tablet 09/18/2015 - 04/20/2016 Pro vider: CRISSY CELESTIN HALFTONE OPERATOR-BC Diagnosis: 2 tabs on day one then one tab on days 2-5 Last Documented On 04/20/2016 2:24PM By ADAN JEAN MD ; [facility] Amitriptyline HCl 10 MG Tablet 09/18/2015 - 11/04/2016 Provider: CRISSY LI HALFTONE OPERATOR-BC Diagnosis: 1 every bedtime Last Documented On 11/04/2016 9:31AM By SAV ROMO NP ; [facility] RisperDAL 0.5 MG Tablet 09/18/2015 - 05/25/2016 Provid er: CRISSY CELESTIN HALFTONE OPERATOR-BC Diagnosis: TAKE 1 TABLET BY MOUTH EVERY NIGHT AT BEDTIME. MAY TAKE A SECOND TABLET IF NEEDED. Last Documented On 05/25/2016 3:52PM By ADAN JEAN MD ; [facility] OXcarbazepine 300 MG Tablet 09/18/2015 - 01/07/2016 Pr ovider: CRISSY CELESTIN HALFTONE OPERATOR-BC Diagnosis: TAKE THREE TABLETS BY MOUTH AT BEDTIME Last Documented On 6 9:56AM By CRISSY CELESTIN HALFTONE OPERATOR-BC ; [facility] PriLOSEC 20 MG Capsule Delayed Release 09/18/2015 - 02/13/2019 Provider: CRISSY LI HALFTONE OPERATOR-BC Diagnosis: 1 capsule daily fill with generic Last Documented On 0 11:44AM By CANDY REYES LPN ; [facility] Nicoderm CQ 7 MG/24HR Patch 24 Hour 07/10/2015 - 01/22/2018 Provider: SUSANA JIN PA-C Diagnosis: Nicotine depende nce, unspecified, uncomplicated as directed - apply 1 patch QD x2 weeks - start on quit day Last Documented On 8 10:01AM By CANDY REYES LPN ; [facility] Cipro 250 MG Tablet 07/10/2015 - 11/14/2017 Provider: SUSANA JIN PA-C Diagnosis: Dysuria One tablet twice a day Last Documented On 8 2:24PM By CANDY REYES LPN ; [facility] Tolterodine Tartrate 2 MG Tablet 07/10/2015 - 01/06/20 18 Provider: Diagnosis: Last Documented On 8 1:43PM By CANDY REYES LPN ; [facility] OXcarbazepine 300 MG Tablet 07/08/2015 - 09/18/2015 Pr ovider: CRISSY CELESTIN [facility] Diagnosis: TAKE THREE TABLETS BY MOUTH AT BEDTIME Last Documented On 6 11:13AM By CRISSY CELESTIN [facility] ; [facility] RisperDAL 0.5 MG Tablet 07/07/2015 - 09/18/2015 Provid er: ADAN JEAN MD Diagnosis: TAKE 1 TABLET BY MOUTH EVERY NIGHT AT BEDTIME. MAY TAKE A SECOND TABLET IF NEEDED. Last Documented On 6 11:13AM By CRISSY CELESTIN [facility] ; [facility] OXcarbazepine 300 MG Tablet 04/07/2015 - 07/08/2015 Pr ovider: CRISSY CELESTIN [facility]- Diagnosis: TAKE THREE TABLETS BY MOUTH AT BEDTIME Last Documented On 6 9:12AM By CRISSY CELESTIN [facility] ; [facility] Augmentin 875-125 MG Tablet 04/06/2015 - 07/10/2015 Pr ovider: ADAN JEAN MD Diagnosis: One tablet twice a day Last Documented On 07/10/2015 9:50AM By ROCHELLE MOORE ; [facility] Amoxicillin 500 MG Tablet 02/09/2015 - 07/10/2015 Prov ider: SUSANA JOSE-C Diagnosis: One tablet twice a day Last Documented On 07/10/2015 9:52AM By ROCHELLE MOORE ; [facility] Diflucan 150 MG Tablet 01/26/2015 - 07/10/2015 Provider: TIA MICHAELS [facility] Diagnosis: Streptococcal pharyngitis 1 tab then repear 3 days later Last Documented On 07/10/2015 9:52AM By ROCHELLE MOORE ; [facility] Cefprozil 500 MG Tablet 01/26/2015 - 07/10/2015 Provider: TIA MICHAELS [facility] Diagnosis: Streptococcal pharyngitis One tablet daily Last Documented On 07/10/2015 9:52AM By ROCHELLE MOORE ; [facility] OXcarbazepine 300 MG Tablet 01/09/2015 - 02/14/2018 Pr ovider: ROSEY UMAÑA [facility] Diagnosis: TAKE THREE TABLETS BY MOUTH ONCE DAILY AT BEDTIM E. Last Documented On 9 2:10PM By CANDY REYES LPN ; [facility] Augmentin 875-125 MG Tablet 11/26/2014 - 04/06/2015 Pr ovider: ADAN JEAN MD Diagnosis: One tablet twice a day Last Documented On 04/06/2015 11:30AM By ADAN JEAN MD ; [facility] Amitriptyline HCl 10 MG Tablet 11/06/2014 - 09/18/2015 Provider: ADAN JEAN MD Diagnosis: 1 every bedtime Last Documented On 6 11:14AM By CRISSY CELESTIN [facility] ; [facility] Chantix Continuing Month Andrea 1 MG Tablet 10/23/2014 - 07/10/2015 Provider: ADAN Dickerson Diagnosis: as directed start after starter pack Last Documented On 07/10/2015 9:51AM By ROCHELLE MOORE ; [facility] Chantix Starting Month Andrea 0 .5 MG X 11 & 1 MG X 42 Tablet 10/23/2014 - 07/10/2015 Provider: ADAN SINGLETON MD Diagnosis: as directed Last Documented On 07/10/2015 9:51AM By ROCHELLE MOORE ; [facility] RisperDAL 0.5 MG Tablet 10/14/2014 - 07/07/2015 Provid er: ADAN JEAN MD Diagnosis: TAKE 1 TABLET BY MOUTH EVERY NIGHT AT BEDTIME. MAY TAKE A SECOND TABLET IF NEEDED. Last Documented On 07/07/2015 3:59PM By ADAN JEAN MD ; [facility] Zithromax Z-Andrea 250 MG Tablet 09/10/2014 - 07/10/2015 Provider: ADAN JEAN MD Diagnosis: as directed Last Documented On 07/10/2015 9:51AM By ROCHELLE MOORE ; [facility] EQ Nicotine 4 MG Lozenge 08/18/2014 - 05/25/2016 Provi kevin: ADAN JEAN MD Diagnosis: May take 1 lozenge every 1-2 hours as directed.Max 20 lozenges in 24 hours Last Documented On 7 2:54PM By CANDY REYES LPN ; [facility] OXcarbazepine 300 MG Tablet 07/10/2014 - 01/09/2015 Pr ovider: ADAN JEAN MD Diagnosis: as directed TAKE THREE TABLE TS BY MOUTH ONCE DAILY AT BEDTIME. Last Documented On 5 11:38AM By ROSEY UMAÑA [facility] ; [facility] PriLOSEC 20 MG Capsule, delayed-release 05/21/2014 - 09/18/2015 Provider: ADAN Dickerson Diagnosis: 1 capsule daily fill with generic Last Documented On 6 11:13AM By CRISSY CELESTIN [facility] ; [facility] PriLOSEC 20 MG OR CPDR 12/16/2013 - 05/21/2014 Provide r: ROSEY UMAÑA [facility] Diagnosis: fill with generic Last Documented On 05/21/2014 2:30PM By ADAN JEAN MD ; [facility] Amitriptyline HCl 10 MG OR TABS 11/13/2013 - 11/06/2014 Provider: DARREN OCAMPO PA-C Diagnosis: Last Documented On 11/06/2014 9:54AM By ADAN JEAN MD ; [facility] RisperDAL 0.5 MG OR TABS 10/16/2013 - 10/14/2014 Provi kevin: ADAN JEAN MD Diagnosis: May take an addition 1 tab p o prn HS in addition to the normal 1 tab po HS dose Last Documented On 10/14/2014 8:33AM By ADAN JEAN MD ; [facility] OXcarbazepine 300 MG OR TABS 07/22/2013 - 07/10/2014 P rovider: DARREN OCAMPO PA-C Diagnosis: TAKE THREE TABLETS BY MOUTH ONCE DAILY AT BEDTIM E. Last Documented On 07/10/2014 10:04AM By ADAN JEAN MD ; [facility] OXcarbazepine 300 MG OR TABS 07/16/2013 - 07/22/2013 P rovider: ADAN JEAN MD Diagnosis: TAKE THREE TABLETS BY MOUTH ONCE DAILY AT BEDTIM E. Last Documented On 4 8:19AM By DARREN OCAMPO PA-C ; [facility] RisperDAL 0.5 MG OR TABS 04/17/2013 - 10/16/2013 Provi kevin: ADAN JEAN MD Diagnosis: May take an addition 1 tab p o prn HS in addition to the normal 1 tab po HS dose Last Documented On 10/16/2013 10:37AM By ADAN JEAN MD ; [facility] Nicoderm CQ 21 MG/24HR TD PT24 01/02/2013 - 05/21/2014 Provider: ADAN JEAN MD Diagnosis: one patch daily Last Documented On 5 2:03PM By CANDY REYES LPN ; [facility] Amitriptyline HCl 10 MG OR TABS 11/20/2012 - 4 Provider: ADAN JEAN MD Diagnosis: Last Documented On 4 5:22PM By DARREN OCAMPO PA-C ; [facility] PriLOSEC 20 MG OR CPDR 10/24/2012 - 12/16/2013 Provide r: ADAN JEAN MD Diagnosis: fill with generic Last Documented On 4 9:06AM By ROSEY UMAÑA [facility]- ; [facility] Amitriptyline HCl 10 MG OR TABS 10/24/2012 - 3 Provider: ADAN JEAN MD Diagnosis: Last Documented On 11/20/2012 11:47AM By ADAN JEAN MD ; [facility] OXcarbazepine 300 MG OR TABS 10/24/2012 - 07/16/2013 P rovider: ADAN JEAN MD Diagnosis: take 3 tablets at bedtime Last Documented On 07/16/2013 11:37AM By ADAN JEAN MD ; [facility] Estradiol 0.5 MG OR TABS 10/24/2012 - 09/18/2015 Provi kevin: ADAN JEAN MD Diagnosis: Last Documented On 6 11:12AM By CRISSY CELESTIN [facility] ; [facility] Metoclopramide HCl 10 MG OR TABS 10/24/2012 - 05/22/19 15 Provider: Diagnosis: Last Documented On 5 2:05PM By CANDY REYES LPN ; [facility] PriLOSEC 20 MG OR CPDR 10/24/2012 - 05/25/2016 Provide r: Diagnosis: Last Documented On 7 3:12PM By CANDY REYES LPN ; [facility] RisperDAL 0.5 MG OR TABS 10/16/2012 - 04/17/2013 Provi kevin: DARREN OCAMPO PA-C Diagnosis: May take an addition 1 tab p o prn HS in addition to the normal 1 tab po HS dose Last Documented On 04/17/2013 4:00PM By ADAN JEAN MD ; [facility] Augmentin 875-125 MG OR TABS 07/11/2012 - 05/21/2014 Provider: ADAN Dickerson Diagnosis: ACUTE SINUSITIS NOS Last Documented On 5 2:05PM By CANDY REYES LPN ; [facility] Amitriptyline HCl 10 MG OR TABS 04/18/2012 - 3 Provider: ADAN JEAN MD Diagnosis: Last Documented On 10/24/2012 11:20AM By ADAN JEAN MD ; [facility] RisperDAL 0.5 MG OR TABS 04/18/2012 - 10/16/2012 Provi kevin: ADAN JEAN MD Diagnosis: May take an addition 1 tab p o prn HS in addition to the normal 1 tab po HS dose Last Documented On 3 11:21AM By DARREN OCAMPO PA-C ; [facility] OXcarbazepine 300 MG OR TABS 04/18/2012 - 10/24/2012 P rovider: ADAN JEAN MD Diagnosis: take 3 tablets at bedtime Last Documented On 10/24/2012 11:20AM By ADAN JEAN MD ; [facility] RisperDAL 0.5 MG OR TABS 10/19/2011 - 04/18/2012 Provi kevin: ADAN JEAN MD Diagnosis: May take an addition 1 tab p o prn HS in addition to the normal 1 tab po HS dose Last Documented On 04/18/2012 1:30PM By ADAN JEAN MD ; [facility] RisperDAL 0.5 MG OR TABS 10/19/2011 - 10/19/2011 Provi kevin: ADAN JEAN MD Diagnosis: May take an addition 1 tab p o prn HS in addition to the normal 1 tab po HS dose Last Documented On 10/19/2011 9:35AM By ADAN JEAN MD ; [facility] Amitriptyline HCl 10 MG OR TABS 10/19/2011 - 3 Provider: ADAN JEAN MD Diagnosis: Last Documented On 04/18/2012 1:30PM By ADAN JEAN MD ; [facility] OXcarbazepine 300 MG OR TABS 10/19/2011 - 04/18/2012 P puneet: ADAN JEAN MD Diagnosis: take 3 tablets at bedtime Last Documented On 04/18/2012 1:30PM By ADAN JEAN MD ; [facility] RisperDAL 0.5 MG OR TABS 09/15/2011 - 10/19/2011 Provi kevin: ADAN JEAN MD Diagnosis: May take an addition 1 tab p o prn HS in addition to the normal 1 tab po HS dose Last Documented On 10/19/2011 9:34AM By ADAN JEAN MD ; [facility] RisperDAL 0.5 MG OR TABS 04/20/2011 - 09/15/2011 Provi kevin: ADAN JEAN MD Diagnosis: May take an addition 1 tab p o prn HS in addition to the normal 1 tab po HS dose Last Documented On 09/15/2011 11:39AM By ADAN JEAN MD ; [facility] Amitriptyline HCl 10 MG OR TABS 04/20/2011 - 2 Provider: ADAN JEAN MD Diagnosis: Last Documented On 10/19/2011 9:32AM By ADAN JEAN MD ; [facility] OXcarbazepine 300 MG OR TABS 04/20/2011 - 10/19/2011 P puneet: ADAN JEAN MD Diagnosis: take 3 tablets at bedtime Last Documented On 10/19/2011 9:32AM By ADAN JEAN MD ; [facility] Estradiol 0.5 MG OR TABS 04/20/2011 - 05/21/2014 Provi kevin: Diagnosis: Last Documented On 5 2:05PM By CANDY REYES LPN ; [facility] RisperDAL 0.5 MG OR TABS 10/21/2010 - 04/20/2011 Provi kevin: KAITLIN CAAL PA-C Diagnosis: May take an addition 1 tab p o prn HS in addition to the normal 1 tab po HS dose Last Documented On 04/20/2011 9:39AM By ADAN JEAN MD ; [facility] RisperDAL 0.5 MG OR TABS 10/21/2010 - 10/21/2010 Provi kevin: KAITLIN CAAL PA-C Diagnosis: Last Documented On 1 10:15AM By KAITLIN CAAL PA-C ; [facility] Amitriptyline HCl 10 MG OR TABS 10/21/2010 - 04/20/2011 Provider: KATILIN PETERSON CH, PA-C Diagnosis: Last Documented On 04/20/2011 9:37AM By ADAN JEAN MD ; [facility] OXcarbazepine 300 MG OR TABS 10/21/2010 - 04/20/2011 P rovider: KAITLIN CAAL PA-C Diagnosis: take 3 tablets at bedtime Last Documented On 04/20/2011 9:37AM By ADAN JEAN MD ; [facility] Estradiol 0.05 MG/24HR TD PTWK 10/21/2010 - 04/18/2012 Provider: Diagnosis: Last Documented On 04/18/2012 1:30PM By ADAN JEAN MD ; [facility] Flonase 50 MCG/ACT NA SUSP 06/14/2010 - 10/24/2012 Pro vider: DARREN OCAMPO PA-C Diagnosis: 1 spray/nostril every day Last Documented On 3 11:05AM By CANDY REYES LPN ; [facility] Naproxen 500 MG OR TABS 06/14/2010 - 10/24/2012 Provid er: DARREN OCAMPO PA-C Diagnosis: Last Documented On 3 11:05AM By CANDY REYES LPN ; [facility] Penicillin V Potassium 500 M G OR TABS 06/14/2010 - 05/21/2014 Provider: DARREN OCAMPO PA-C Diagnosis: Last Documented On 5 2:05PM By CANDY REYES LPN ; [facility] Zithromax Z-Andrea 250 MG OR TABS 04/20/2010 - 05/21/2014 Provider: ADAN JEAN MD Diagnosis: Last Documented On 5 2:05PM By CANDY REYES LPN ; [facility] RisperDAL 0.5 MG OR TABS 04/20/2010 - 10/21/2010 Provi kevin: ADAN JEAN MD Diagnosis: Last Documented On 1 9:55AM By KAITLIN CAAL PA-C ; [facility] Amitriptyline HCl 10 MG OR TABS 04/20/2010 - 1 Provider: ADAN JEAN MD Diagnosis: Last Documented On 1 9:55AM By KAITLIN CAAL PA-C ; [facility] OXcarbazepine 300 MG OR TABS 04/20/2010 - 10/21/2010 P puneet: ADAN JEAN MD Diagnosis: take 3 tablets at bedtime Last Documented On 1 9:55AM By KAITLIN CAAL PA-C ; [facility] Zithromax Z-Andrea 250 MG OR TABS 12/28/2009 - 04/20/2010 Provider: ADAN JEAN MD Diagnosis: Last Documented On 04/20/2010 10:43AM By ADAN JEAN MD ; [facility] RisperDAL 0.5 MG OR TABS 10/22/2009 - 06/14/2010 Provi kevin: ADAN JEAN MD Diagnosis: Last Documented On 1 9:34AM By DARREN OCAMPO PA-C ; [facility] OXcarbazepine 300 MG OR TABS 10/22/2009 - 04/20/2010 P puneet: ADAN JEAN MD Diagnosis: take 3 tablets at bedtime Last Documented On 04/20/2010 10:43AM By ADAN JEAN MD ; [facility] Amitriptyline HCl 10 MG OR TABS 10/22/2009 - 1 Provider: ADAN JEAN MD Diagnosis: Last Documented On 04/20/2010 10:43AM By ADAN JEAN MD ; [facility] OXcarbazepine 300 MG OR TABS 10/22/2009 - 10/22/2009 P rovider: Diagnosis: take 3 tablets at bedtime Last Documented On 10/22/2009 10:20AM By ADAN JEAN MD ; [facility] Amitriptyline HCl 10 MG OR TABS 10/22/2009 - 0 Provider: Diagnosis: Last Documented On 10/22/2009 10:20AM By ADAN JEAN MD ; [facility] RisperDAL 0.5 MG OR TABS 10/22/2009 - 06/14/2010 Provi kevin: Diagnosis: Last Documented On 1 9:34AM By DARREN OCAMPO PA-C ; [facility] Augmentin 875-125 MG OR TABS 05/28/2009 - 07/11/2012 Provider: ADAN Dickerson Diagnosis: ACUTE SINUSITIS NOS Last Documented On 07/11/2012 10:58AM By ADAN JEAN MD ; [facility] RisperDAL 0.5 MG OR TABS 01/24/2009 - 10/22/2009 Provi kevin: Diagnosis: Last Documented On 10/22/2009 10:20AM By ADAN JEAN MD ; [facility] Chantix Continuing Month Andrea 1 MG OR TABS 01/24/2009 - 04/20/2011 Provider: Diagnosis: Last Documented On 04/20/2011 9:02AM By ADAN JEAN MD ; [facility] Trileptal 300 MG OR TABS 01/24/2009 - 10/24/2012 Provi kevin: Diagnosis: Last Documented On 3 11:05AM By CANDY REYES LPN ; [facility] Zithromax Z-Andrea 250 MG OR TABS 01/24/2009 - 12/28/2009 Provider: WALKER JAIN Diagnosis: Last Documented On 12/28/2009 1:18PM By ADAN JEAN MD ; [facility] Nasonex 50 MCG/ACT NA SUSP 01/24/2009 - 10/24/2012 Pro vider: WALKER JAIN Diagnosis: #2 SPRAYS EACH NARE DAILY. Last Documented On 3 11:05AM By CANDY REYES LPN ; [facility] Medications Administered Includes: Administered Medications in patient's chart Medications Administered Diagnosis Date Pro vider influenza vaccine IM INJ 01/11/2017 KELSEY JEAN MD Last Documented On 7 11:47AM By CANDY REYES LPN ; [facility] Results Includes: Results from 05/22/2023 through 05/21/2024 No Results Recorded For Specified Dates History of Present Illness History of Present Illness not supported for this document type No History of Present Illness Recorded Social History Description Last Updated Social history unchanged 11/22/2019 Last Documented On 0 11:42AM ; [facility] Smoking status : Former smoker 0 Last Documented On 0 1:29PM ; [facility] Current smoker 09/05/2018 Last Documented On 9 3:44PM ; [facility] Not using alcohol 09/10/2014 Last Documented On 5 1:07PM ; [facility] Not using drugs 09/10/2014 Last Documented On 5 1:07PM ; [facility] Cigarette smoking 06/14/2010 Last Documented On 1 12:38PM ; [facility] Smoking using CHANTIX 06/14/2010 Last Documented On 1 12:38PM ; [facility] Medical History Includes: Medical History in patient's chart Description Last Updated A colonoscopy was performed COMPLIANCE MGR HAS SCHE DULED 05/25/2016 Last Documented On 7 4:46PM ; [facility] Last mammogram date: 12/2205/25/2016 Last Documented On 7 4:46PM ; [facility] Pt does not get blood pressure checked a t other facility 01/26/2015 Last Documented On 5 4:12PM ; [facility] A mammogram was performed 2011 3 Last Documented On 3 1:05PM ; [facility] No recent change in medical history 10/07 Last Documented On 1 10:16AM ; [facility] No exposure to an upper respiratory infe ction 05/28/2009 Last Documented On 0 12:49PM ; [facility] No recurrent URIs 05/28/2009 Last Documented On 0 12:49PM ; [facility] Family History Includes: Family History in patient's chart Description Last Updated Family history reviewed 02/14/2018 Last Documented On 9 3:03PM ; [facility] Family history unchanged 02/14/2018 Last Documented On 9 3:03PM ; [facility] Maternal history of stroke syndrome 05/07 Last Documented On 7 4:46PM ; [facility] Paternal history of coronary artery dise ase 05/25/2016 Last Documented On 7 4:46PM ; [facility] Father in fair health 09/10/2014 Last Documented On 5 1:07PM ; [facility] Father in good health [employer] Last Documented On 5 1:07PM ; [facility] Review of Systems Review of Systems [...] Patient Last Documented On 1 9:22AM ; [facility] Influenza (Quadrivalent)36 m o.& older PF 0.5ml (SD) 2 11/25/2011 Complete (Reported) Patie nt Last Documented On 2 9:28AM ; [facility] Influenza (Quadrivalent)36 mo.& older PF 0.5ml (SD) 3 01/11/2017 Right Arm Complete (Administered) [facility] Last Documented On 7 11:50AM ; [facility] Influenza (Quadrivalent)36 mo.& older PF 0.5ml (SD) 4 01/05/2018 Left Deltoid Complete (Administered) [facility] Last Documented On 8 1:45PM ; [facility] Allergies Includes: Active, inactive, and resolved Allergies Substance Type Reaction Onset Date Resolved Date Statu s TORADOL Allergy HALLUCINATIONS N ERVOUS FROM WASTE DOWN 09/10/2014 Active Last Documented On 7 10:17AM ; [facility] Stadol Allergy 09/10/2014 Active Last Documented On 7 10:17AM ; [facility] Note: NERVOUS, FEELS ANSY Nubain Allergy 09/10/2014 Active Last Documented On 7 10:17AM ; [facility] Note: CAUSES NERVOUSNESS Insurance Includes: Active Insurance Policies Plan Name Member ID Group # Subscriber Relationship Effect lokesh Dates 1 - [facility] [id number] [employer] [place] Clinical Notes Includes: Signed Clinical Notes starting from 02/25/2022 No Clinical Notes Recorded
--- OUTSIDE RECORDS SUMMARY | 2024-05-21 18:58 | XMS_ITS | Clinical Summary ---
Author Organization [facility] Address [address] [place] [address] Care Team Providers Care Supervisor Molding Name Role Phone Leonarda Ahn MD Primary Care Provider [phone] Allergies No known active allergies Medications amitriptyline [...] 01/23/2023 Assessment & Plan (01/23/2023 10:15 AM CADMIUM BURNER): Patient wishes to continue on her estrogen [...] 03/21/2019 Assessment & Plan (03/21/2019 4:43 PM CADMIUM BURNER): Take famotidine 40 mg tablets daily. She can use uhpl-dui-razyoiy Zegerid capsules once or twice daily as needed as well. Anxiety 02/02/2019 Irritable bowel syndrome with constipation 10/25 Assessment & Plan (03/21/2019 4:43 PM CADMIUM BURNER): Will continue Linzess 72 micro g daily capsules. Follow-up in few months. Assessment & Plan (12/20/2018 4:05 PM CADMIUM BURNER): Still constipation issues. Will add mineral oil 1 tbsp daily. Will increase Linzess to 145 micro gram capsule daily and samples given. Follow-up in 3 months Assessment & Plan (10/25/2018 12:34 PM CDT): Continue Linzess 72 micro g daily. Discussed with the patient to start fiber gummy is a fiber supplement and also tried hlvm-[id number]-[id number] milk of magnesia as needed. Dyspepsia 10/18/2018 Overview (10/18/2018): Added automatically from request for surgery [id number] Assessment & Plan (12/20/2018 4:05 PM CADMIUM BURNER): Continue Protonix as I think acid reflux is part of her symptoms. Follow-up in 3 months. Assessment & Plan (10/25/2018 12:34 PM CDT): Schedule EGD for further evaluation. Patient was reassured regarding her room complaints and likely related to irritable bowel syndrome. Thoracic outlet syndrome 03/15/2012 Carpal tunnel syndrome 03/15/2012 Encounters Date Type Department Care Team Description 05/19/2024 Results Follow-Up [address] [place] [phone] Homer Hernandez MD 05/13/2024 2:00 PM CDT Procedure visit [address] [address] Homer Hernandez MD PMB (postmenopausal bleeding) (Primary Dx) 05/13/2024 Orders Only [address] [address] Homer Hernandez MD 04/03/[address] [address] Wendy Thompson RN US and Lab Results 04/01/2024 8:30 AM CADMIUM BURNER Ancillary Procedure [address] [address] PMB (postmenopausal bleeding) 04/01/2024 8:10 AM CADMIUM BURNER Lab [address] Symptomatic menopausal or female climacteric states 03/25/2024 Results Follow-Up [address] [address] Wendy Thompson RN Symptomatic menopausal or female climacteric states (Primary Dx) 03/19/2024 1:00 PM CADMIUM BURNER Office Visit [address] [address] Homer Hernandez MD PMB (postmenopausal bleeding) (Primary [...] on file Legal Sex Female 2:27 AM CADMIUM BURNER Gender Identity Not on file Sexual Orientation [...] Read Routine (OP Routine) 04/01/2024 9:27 AM CADMIUM BURNER PMB (postmenopausal bleeding) FOLLICLE STIMULATING HORMONE Routine 04/01/2024 8:12 AM CADMIUM BURNER Symptomatic menopausal or female climacteric states PAP AND HPV, REFLEX TO HPV GENOTYPES Routine 03/19/2024 1:52 PM CADMIUM BURNER Unsatisfactory cervical Papanicolaou smear N. GONORRHOEAE/C. TRACHOMATIS AMPLIFICATION Routine 03/19/2024 1:52 PM CADMIUM BURNER Endometritis NE REMOVAL INTRAUTERINE DEVICE IUD Routine 03/19/2024 1:00 PM CADMIUM BURNER Encounter for IUD removal SCREENING MAMMOGRAM BILATERAL W GREGOR Schedule Routine, Read Routine (OP Routine) 10/06/2023 9:31 AM CDT from Last 3 Months or Most Recently Relevant to Health Maintenance Results * Surgical pathology tissue exam request - other pathology (05/13/2024 12:00 AM CDT) Clinical information [facility] Comment:Postmenopausal bleed ing PATHOLOGIST [facility] Comment: Alexi Eaton M.D., Board Certified in Anatomic Pathology and Clinical Pathology. (electronic signature) A source [facility] Comment:Endometrium, biopsy A Gross description [facility] Comment: Specimen is received in 10% neutral buffered formalin, labeled with multiple patient identifiers and consists of multiple fragments of soft tissue aggregating to 2.2 x 1.0 x 0.2 cm, irregular in shape and matos-brown in color. The specimen is entirely submitted in one cassette. Site is not given on container. Gross exam(s) performed at: [address] [address] Elementary Assistant Teacher: TAMRA ALLISON MD A diagnosis [facility] Comment: Scant strips of endometrial surface epithelium and crushed endometrial stroma, consistent with inactive endometrium/atrophy with blood. Endocervical tissue showing squamous metaplasia. No features diagnostic of hyperplasia or malignancy. 05/13/2024 05/15/2024 2:2 4 AM CDT Narrative [facility] - 05/16/2024 2:58 PM CDT FASTING: UNKNOWN Homer Hernandez MD LAB PATHOLOGY ORDERABLES F inal Result [facility] [address] [facility] [place] [address] * US Transvaginal (04/01/2024 9:27 AM CADMIUM BURNER) Cul de Sac No free fluid visualized VIEWPOINT Anatomical Region Laterality Modality Pelvis N/A Ultrasound 04/01/2024 8:54 AM CADMIUM BURNER Impressions 04/03/2024 8:09 PM CADMIUM BURNER 1. Small retroverted to midplane uterus. EMC is not reliably measured. 2. Normal appearing ovaries bilaterally. Narrative Procedure Note Homer Hernandez MD - 04/03/2024 IMPRESSION: 1. Small retroverted to midplane uterus. EMC is not reliably measured. 2. Normal appearing ovaries bilaterally. Homer Hernandez MD IMG US PROCEDURES Final Re sult * Follicle stimulating hormone (04/01/2024 8:12 AM CADMIUM BURNER) FSH 48.4 IUnits/L Comment: Interpretive Data Male: Adults: 1.5 - 12.4 IUnits/L Female: Follicular: 3.5 - 12.5 IUnits/L Ovulation: 4.7 - 21.5 IUnits/L Luteal: 1.7 - 7.7 IUnits/L Postmenopausal: 25.8 - 134.8 IUnits/L Current interpretive data was last revised 2015. Testing performed by: [facility], [address] [place] [address] Blood 04/01/2024 8:12 AM CADMIUM BURNER 04/01/2024 2:29 PM CADMIUM BURNER Homer Hernandez MD LAB BLOOD ORDERABLES Final Result Performing Organization Address City/State/[facility] Co de Phone Number [facility] D LO 1 [facility] [place] [address] * Pap and HPV, reflex to HPV Genotypes (03/19/2024 1:52 PM CADMIUM BURNER) CLINICAL INFORMATION: i-marker [facility] Comment:WWE LMP i-marker [facility] Comment:IUD Previous Pap i-marker [facility] Comment:NONE GIVEN Prev. Bx i-marker [facility] Comment:NONE GIVEN SOURCE: i-marker [facility] Comment:Cervix, Endocervix Pap, specimen adequacy i-marker [facility] Comment: Satisfactory for evaluation. Endocervical/transformation zone component present. Partially obscuring inflammation HPV interp i-marker [facility] Comment: Cytology Results: Negative for intraepithelial lesion or malignancy. COMMENTS [facility] Comment: This Pap test has been evaluated with computer assisted technology. Load Manager [facility] Comment: JAF, CT(ASCP) CT Screening Location: [place] [address] [address] [place] Ruiz [id number] Review sales engagement manager [facility] Comment: TMK, CT(ASCP) CT screening location: [place] [address] [address] [place] Ru[place] [address] Comment [facility] Comment: EXPLANATORY NOTE: The Pap is [...] High Risk E6/E7 Not Detected NOT DETECTED [facility] Comment: Not Detected High Risk HPV types (16,18,31,33,35,39,45,51,52, 56,58,59,66,68) were not detected. Other HPV types which cause anogenital lesions may be present. The significance of the other types of HPV in malignant processes has not been established. Methodology: Real Time PCR Thin prep-Endocervica l 03/19/2024 1:52 PM CADMIUM BURNER 03/20/2024 3:19 AM CADMIUM BURNER Homer Hernandez MD LAB CYTOLOGY ORDERABLES Fi nal Result [place] [address] [place] [address] [place] [address] [place] [address] * N. gonorrhoeae/C. trachomatis Amplification (03/19/2024 1:52 PM CADMIUM BURNER) C. trachomatis RNA NOT DETECTED NOT DETECTED [facility] [place] N. gonorrhoeae RNA NOT DETECTED NOT DETECTED [facility] [place] Comment [facility] Comment: The analytical performance characteristics of this assay, when used to test SurePath(TM) specimens have been determined by [facility]. The modifications have not been cleared or approved by the FDA. This assay has been validated pursuant to the CLIA regulations and is used for clinical purposes. For additional information, please refer to https://education.Kleek/faq/EHD125 (This link is being provided for information/ educational purposes only.) 03/19/2024 1:52 PM CADMIUM BURNER 03/20/2024 3:19 AM CADMIUM BURNER Homer Hernandez MD LAB MICROBIOLOGY - GENERAL ORDERABLES Final Result [employer] [address] [address] [facility] [place] [address] * NE REMOVAL INTRAUTERINE DEVICE IUD (03/19/2024 1:00 PM CADMIUM BURNER) Narrative Homer Hernandez MD - 03/19/2024 1:00 PM CADMIUM BURNER Homer Hernandez MD 04/07/2024 10:11 PM IUD [...] Most Recently Relevant to Health Maintenance Insurance [facility] [place] H[place]/PPO Address: [address] [address] [place] [address] MEDICARE [facility] MEDICARE [facility] [place] H[place]/PPO Address: [address] [address] [place] [address] Advance Directives For more information, please contact: [phone] * Full Code (Latest Code Status on File) Date Activated Date Inactivated Comments 05/05/2020 11:29 AM 05/05/2020 4:03 PM * Full Code Date Activated Date Inactivated Comments 12/04/2018 7:42 AM 12/04/2018 2:07 PM * Full Code Date Activated Date Inactivated Comments 12/04/2018 7:41 AM 12/04/2018 7:42 AM Care Teams Supervisor Molding Relationship Specialty Start Date End Date Leonarda Ahn MD PCP - General Family Medicine 03/09/23
--- OUTSIDE RECORDS SUMMARY | 2024-05-21 18:59 | XMS_ITS | Clinical Summary ---
Author Organization [facility] Address [address] [place] [address] Phone Care Team Providers Care Cook Jelly Name Role Phone Alexi Toth MD Primary Care Provider [phone] Social History Tobacco Use Types Packs/Day Years [...] age to complete this topic Care Teams Cook Jelly Relationship Specialty Start Date End Date Alexi Toth MD [address] [place] [address] PCP - General Family Medicine 07/13/15
--- OUTSIDE RECORDS SUMMARY | 2024-05-21 18:59 | XMS_ITS ---
Care Plan - [facility] Created on: May 21, 2024 LINN CHEW : 1965 Sex: Female Author Organization [facility] Address [address] [place] [phone] Phone Care Team Providers Care Crime Scene Technician Name Role Phone ADAN JEAN MD Primary Care Provider Unavail able
--- OUTSIDE RECORDS SUMMARY | 2024-05-21 18:59 | XMS_ITS | Encounter Summary ---
Author Organization [facility] Healthcare Address [address] [place] [address] Care Team Providers Care Maintainability Engineer Name Role Phone Leonarda Ahn MD Primary Care Provider [phone] Reason for Visit * Reason Onset Date Comments FSH 03/25/2024 Encounter Details Date Type Department Care Team (Late st Contact Info) Description 03/25/2024 Results Follow-Up [address], [place] [phone] Wendy Thompson RN Symptomatic menopausal or female [...] on file Legal Sex Female 2:27 AM [employer] Gender Identity Not on file Sexual Orientation Not on file documented as of this encounter Miscellaneous Notes * Result Encounter Note - Homer Hernandez MD - 04/07/2024 10:17 PM [employer] COACH Please call patient with results. Her FSH shows that she is in menopause. Her ultrasound was normalbut her EMC was not able to be reliably measured. Let's see for an EMB in the next two weeks. Ask if she finished the Augmentin, if discharge is better and if she has had any more bleeding. Thanks. [employer] COACH * Telephone Encounter - Wendy Thompson RN - 03/25/2024 10:17 AM [employer] CO[employer] Pt to have an FSH done on 04-01-24 to assure she is in menopause. JT removed her IUD at her last visit on 03-19-24. Order placed. [employer] COACH [employer] COACH documented in this encounter Plan of Treatment Not on file documented as of this encounter Results * Follicle stimulating hormone (04/01/2024 8:12 AM [employer] COACH) FSH 48.4 IUnits/L Comment: Interpretive Data Male: Adults: 1.5 - 12.4 IUnits/L Female: Follicular: 3.5 - 12.5 IUnits/L Ovulation: 4.7 - 21.5 IUnits/L Luteal: 1.7 - 7.7 IUnits/L Postmenopausal: 25.8 - 134.8 IUnits/L Current interpretive data was last revised 2015. Testing performed by: [facility], [address] [place] [address]., [address] Blood 04/01/2024 8:12 AM [employer]ACH 04/01/2024 2:29 PM [employer] COACH us Homer Hernandez MD LAB BLOOD ORDERABLES Final Result Performing Organization Address City/State/[facility] Co de Phone Number [facility] 1 [facility] Department [place] [address] documented in this encounter Visit Diagnoses Diagnosis Symptomatic menopausal or female climacteric states- Primary documented in this encounter Care Teams Maintainability Engineer Relationship Specialty Start Date End Date Leonarda Ahn MD PCP - General Family Medicine 03/09/23 documented as of this encounter
--- OUTSIDE RECORDS SUMMARY | 2024-05-21 18:59 | XMS_ITS | Encounter Summary ---
Author Organization [facility] Healthcare Address [address] [place] [address] Care Team Providers Care Web Development Director Name Role Phone Leonarda Ahn MD Primary Care Provider [phone] Encounter Details Date Type Department Care Team (Late st Contact Info) Description 05/19/2024 Results Follow-Up [facility] [address] [place] [address] [address] [place] [address] Homer Hernandez MD [address] [place] [address] [address] [place], [place] [id number] Social History Tobacco Use Types Packs/Day Years [...] on file Legal Sex Female 2:27 AM RESEARCH AND DEVELOPMENT CHEMIST Gender Identity Not on file Sexual Orientation Not on file documented as of this encounter Plan of Treatment Not on file documented as of this encounter Visit Diagnoses Not on filedocumented in this encounter Care Teams Web Development Director Relationship Specialty Start Date End Date Leonarda Ahn MD PCP - General Family Medicine 03/09/23 documented as of this encounter
--- OUTSIDE RECORDS SUMMARY | 2024-05-21 18:59 | XMS_ITS | Clinical Summary ---
Author Organization [facility] Address [address] [place] [address] Phone Care Team Providers Care Family Welfare Social Work Professor Name Role Phone ADAN JEAN MD Primary [...] Active Last Documented On 11/22/2019 10:28AM ; [facility] Note: Unchanged Cerebral Artery Aneurysm 10/22/2009 ADAN JEAN MD Active Last Documented On 10/22/2009 1:19PM ; [facility] Note: Unchanged Past Visits Onset Date Resolved Date Provider Condition Status Bipolar Disorder Moderate 02/13/2019 ADAN JEAN MD Active Last Documented On 02/13/2019 1:27PM ; [facility] Note: Unchanged Bipolar I Disorder Currently in Remission 12/26/2018 ADAN JEAN MD Active Last Documented On 12/26/2018 12:59PM ; [facility] Note: Unchanged Schizophrenia, in Remission 12/26/2018 ADAN JEAN MD Active Last Documented On 12/26/2018 12:59PM ; [facility] Note: Unchanged Dysphagia 09/05/2018 ADAN JEAN MD Active Last Documented On 09/05/2018 1:26PM ; [facility] Note: Unchanged Peripheral Neuropathy Sensory 09/05/2018 ADAN JEAN MD Active Last Documented On 09/05/2018 1:26PM ; [facility] Note: Unchanged Gerd 02/14/2018 ADAN JEAN MD Active Last Documented On 02/14/2018 2:54PM ; [facility] Note: Unchanged Nicotine Dependence 02/14/2018 ADAN JEAN MD Active Last Documented On 02/14/2018 2:54PM ; [facility] Note: Unchanged Streptococcal Sore Throat 01/26/2015 [facility] Active Last Documented On 01/26/2015 4:10PM ; [facility] Note: Unchanged Gastroenteritis Viral 01/26/2015 [facility] Active Last Documented On 01/26/2015 4:10PM ; [facility] Note: Unchanged Carpal Tunnel Syndrome 04/18/2012 SHELLI JEAN MD Active Last Documented On 04/18/2012 1:29PM ; [facility] Note: Unchanged Irritable Bowel Syndrome 10/22/2009 ADAN JEAN MD Active Last Documented On 7 10:30AM ; [facility] Allergic Rhinitis 10/22/2009 ADAN JEAN MD Active Last Documented On 7 3:54PM ; [facility] Hyperlipidemia 10/22/2009 ADAN JEAN MD Act lokesh Last Documented On 7 10:30AM ; [facility] Plan of Treatment - Transition in care, clinical summary provided - Last Documented On 12/05/2019 11:32AM ; [facility] - Request consultation by specialist - Last Documented On 12/05/2019 11:32AM ; [facility] Referrals To Diagnosis Neurologist [facility] [place] [address] - Migraine with aura, not intractable, w/o status migrainosus Last Documented On 4 2:16PM ; [facility] Assessments Includes: Assessments from this encounter Findings - Classic migraine (with aura) without intractable migraine without status migrainosus - Last Documented On 12/05/2019 11:32AM ; [facility] - Cerebral artery aneurysm - Last Documented On 12/05/2019 11:32AM ; [facility] Medical Equipment - Implanted Devices Includes: Current Devices No Medical Equipment Recorded Medications Includes: Medications discussed during this encounter and other current Medications Current Medications (continue as prescribed) Cetirizine HCl 10 MG Oral Tablet 03/09/2020 Provider : ADAN JEAN MD Diagnosis: TAKE 1 TABLET BY MOUTH DAILY Last Documented On 03/09/2020 1:46PM By ADAN JEAN MD ; [facility] Amitriptyline HCl 10 MG Oral Tablet 03/09/2020 Provi kevin: ADAN JEAN MD Diagnosis: TAKE 2 TABLETS BY MOUTH AT BEDTIME DIRECTED Last Documented On 03/09/2020 1:45PM By ADAN JEAN MD ; [facility] risperiDONE 0.5 MG Oral Tablet Disintegrating 11/29/19 20 Provider: ADAN JEAN MD Diagnosis: one tab po QD as needed for acute anxiety Last Documented On 11/29/2019 9:24AM By ADAN JEAN MD ; [facility] risperiDONE 0.5 MG Oral Tablet 11/29/2019 Provider: ADAN JEAN MD Diagnosis: 2 tabs QHS Last Documented On 11/29/2019 9:24AM By ADAN JEAN MD ; [facility] Melatonin 10 MG Oral Capsule 11/20/2019 Provider : Diagnosis: OTC Last Documented On 0 2:05PM By CANDY REYES LPN ; [facility] Cetirizine HCl 10 MG Oral Tablet 11/20/2019 Provider : Diagnosis: Last Documented On 0 2:01PM By CANDY REYES LPN ; [facility] Famotidine 40 MG Oral Tablet 11/20/2019 Provider: Diagnosis: Last Documented On 0 2:00PM By CANDY REYES LPN ; [facility] OXcarbazepine 300 MG Oral Tablet 10/23/2019 Provider : ADAN JEAN MD Diagnosis: TAKE 3 TABLETS BY MOUTH AT BEDTIME Last Documented On 10/23/2019 1:40PM By ADAN JEAN MD ; [facility] Linzess 72MCG Oral Capsule 09/05/2018 Provider: Stephen JEAN MD Diagnosis: One tablet daily Last Documented On 09/05/2018 12:01PM By ADAN JEAN MD ; [facility] Omeprazole 20MG Oral Capsule , delayed-release 02/14/2018 Provider: ADAN JEAN MD Diagnosis: Gastro-esophagea l reflux disease with esophagitis One tablet daily Last Documented On 02/14/2018 2:59PM By ADAN JEAN MD ; [facility] Past Medications on file Amitriptyline HCl 10 MG Oral Tablet 05/29/2019 - 08/26 Provider: Diagnosis: TAKE TWO TABLETS AT HS Last Documented On 05/29/2019 11:13AM By BRAEDEN VALADEZ ; [facility] Macrobid 100 MG Oral Capsule 04/25/2019 - 05/02/2019 Provider: ADAN Dickerson Diagnosis: Urinary tract infection, site not specified One tablet twice a day Last Documented On 04/25/2019 9:59AM By ADAN JEAN MD ; [facility] Amitriptyline HCl 10 MG Oral Tablet 10/16/2018 - 10/11/2019 Provider: SAV ORR Diagnosis: TAKE 1 TABLET BY MOUTH EVERY NIGHT AT BEDTIME Last Documented On 10/16/2018 8:24AM By SAV ROMO PCB DESIGNER ; [facility] Sulfamethoxazole-Trimethopri m 400-80MG Oral Tablet 04/03/2018 - 04/10/2018 Provider: AADN JEAN MD Diagnosis: One tablet twice a day Last Documented On 04/03/2018 1:10PM By ADAN JEAN MD ; [facility] Fluticasone Propionate 50MCG/ACT Nasal Suspension 01/20/2017 - 07/19/2017 Provider: JOE STOKES PA-C Diagnosis: 2 sprays each nostril once daily fill with gener ic Last Documented On 7 12:02PM By JOE STOKES PA-C ; [facility] Estradiol 0.5 MG Tablet 09/18/2015 - 09/12/2016 Provid er: CRISSY CUTLER Diagnosis: 1 daily Last Documented On 6 11:17AM By CRISSY CUTLER ; [facility] Medications Administered Includes: Administered Medications from this [...] receipt Last Documented On 0 11:31AM ; [facility] Medical History Includes: Medical History [...] Active Last Documented On 7 10:17AM ; [facility] Stadol Allergy 09/10/2014 Active Last Documented On 7 10:17AM ; [facility] Note: NERVOUS, FEELS ANSY Nubain Allergy 09/10/2014 Active Last Documented On 7 10:17AM ; [facility] Note: CAUSES NERVOUSNESS Encounters Encounter Provider Location Date Check-In Time Check-Out Time Diagnosis * PHONE CALL ADAN JEAN MD [facility] 12/04/19 20 3:55PM 11:59PM Cerebral Artery Aneurysm,Class ic Migraine with Aura Without Intractable Migraine Without Status Migrainosus Insurance Includes: Active Insurance Policies Plan Name Member ID Group # Subscriber Relationship Effect lokesh Dates - [facility] [id number] [place] Clinical Notes Includes: Clinical Notes from this encounter No Clinical Notes Recorded
--- OUTSIDE RECORDS SUMMARY | 2024-05-21 18:59 | XMS_ITS | Clinical Summary ---
Author Organization [facility] Address [address] [place] [address] Phone Care Team Providers Care Handcrew Foreman Name Role Phone ADAN JEAN MD Primary [...] Documented On 11/22/2019 10:28AM ; [facility] Note: Unchanged Bipolar Disorder Moderate 02/13/2019 ADAN JEAN MD Active Last Documented On 02/13/2019 1:27PM ; [facility] Note: Unchanged Bipolar I Disorder Currently in Remission 12/26/2018 ADAN JEAN MD Active Last Documented On 12/26/2018 12:59PM ; [facility] Note: Unchanged Schizophrenia, in Remission 12/26/2018 ADAN JEAN MD Active Last Documented On 12/26/2018 12:59PM ; [facility] Note: Unchanged Dysphagia 09/05/2018 ADAN JEAN MD Active Last Documented On 09/05/2018 1:26PM ; [facility] Note: Unchanged Peripheral Neuropathy Sensory 09/05/2018 ADAN JEAN MD Active Last Documented On 09/05/2018 1:26PM ; [facility] Note: Unchanged Gerd 02/14/2018 ADAN JEAN MD Active Last Documented On 02/14/2018 2:54PM ; [facility] Note: Unchanged Nicotine Dependence 02/14/2018 ADAN JEAN MD Active Last Documented On 02/14/2018 2:54PM ; [facility] Note: Unchanged Streptococcal Sore Throat 01/26/2015 [facility] Active Last Documented On 01/26/2015 4:10PM ; [facility] Note: Unchanged Gastroenteritis Viral 01/26/2015 [facility] Active Last Documented On 01/26/2015 4:10PM ; [facility] Note: Unchanged Carpal Tunnel Syndrome 04/18/2012 SHELLI JEAN MD Active Last Documented On 04/18/2012 1:29PM ; [facility] Note: Unchanged Irritable Bowel Syndrome 10/22/2009 ADAN JEAN MD Active Last Documented On 7 10:30AM ; [facility] Allergic Rhinitis 10/22/2009 ADAN JEAN MD Active Last Documented On 7 3:54PM ; [facility] Hyperlipidemia 10/22/2009 ADAN JEAN MD Act lokesh Last Documented On 7 10:30AM ; [facility] Cerebral Artery Aneurysm 10/22/2009 ADAN ODOM MD Active Last Documented On 0 1:19PM ; [facility] Note: Unchanged Plan of Treatment No Plan [...] On 11/27/2019 2:45PM By SANDRA MOORE ; [facility] Current Medications (continue as prescribed) Cetirizine HCl 10 MG Oral Tablet 03/09/2020 Provider : ADAN JEAN MD Diagnosis: TAKE 1 TABLET BY MOUTH DAILY Last Documented On 03/09/2020 1:46PM By ADAN JEAN MD ; [facility] Amitriptyline HCl 10 MG Oral Tablet 03/09/2020 Provi kevin: ADAN JEAN MD Diagnosis: TAKE 2 TABLETS BY MOUTH AT BEDTIME DIRECTED Last Documented On 03/09/2020 1:45PM By ADAN JEAN MD ; [facility] risperiDONE 0.5 MG Oral Tablet Disintegrating 11/29/19 Provider: ADAN JEAN MD Diagnosis: one tab po QD as needed for acute anxiety Last Documented On 11/29/2019 9:24AM By ADAN JEAN MD ; [facility] risperiDONE 0.5 MG Oral Tablet 11/29/2019 Provider: ADAN JEAN MD Diagnosis: 2 tabs QHS Last Documented On 11/29/2019 9:24AM By ADAN JEAN MD ; [facility] Melatonin 10 MG Oral Capsule 11/20/2019 Provider : Diagnosis: OTC Last Documented On 0 2:05PM By CANDY REYES LPN ; [facility] Cetirizine HCl 10 MG Oral Tablet 11/20/2019 Provider : Diagnosis: Last Documented On 0 2:01PM By CANDY REYES LPN ; [facility] Famotidine 40 MG Oral Tablet 11/20/2019 Provider: Diagnosis: Last Documented On 0 2:00PM By CANDY REYES LPN ; [facility] OXcarbazepine 300 MG Oral Tablet 10/23/2019 Provider : ADAN JEAN MD Diagnosis: TAKE 3 TABLETS BY MOUTH AT BEDTIME Last Documented On 10/23/2019 1:40PM By ADAN JEAN MD ; [facility] Linzess 72MCG Oral Capsule 09/05/2018 Provider: Stephen JEAN MD Diagnosis: One tablet daily Last Documented On 09/05/2018 12:01PM By ADAN JEAN MD ; [facility] Omeprazole 20MG Oral Capsule , delayed-release 02/14/2018 Provider: ADAN JEAN MD Diagnosis: Gastro-esophagea l reflux disease with esophagitis One tablet daily Last Documented On 02/14/2018 2:59PM By ADAN JEAN MD ; [facility] Medications Administered Includes: Administered Medications from [...] Documented On 7 10:17AM ; [facility] Stadol Allergy 09/10/2014 Active Last Documented On 7 10:17AM ; [facility] Note: NERVOUS, FEELS ANSY Nubain Allergy 09/10/2014 Active Last Documented On 7 10:17AM ; [facility] Note: CAUSES NERVOUSNESS Encounters Encounter Provider Location Date Check-In Time Check-Out Time Diagnosis * PHONE CALL ADAN JEAN MD 11/27/2019 2:52PM 11:59PM Insurance Includes: Active Insurance Policies Plan Name Member ID Group # Subscriber Relationship Effect lokesh Dates - [facility] [id number] LINN Yip f Clinical Notes Includes: Clinical Notes from this encounter No Clinical Notes Recorded
--- OUTSIDE RECORDS SUMMARY | 2024-05-21 18:59 | XMS_ITS | Referral Summary ---
Author Organization [facility] Address [address] [place] [address] Care Team Providers Care Superintendent Name Role Phone Leonarda Ahn MD Primary Care Provider [phone] Encounters Date Type Department Care Team Description 05/19/2024 [facility] [address] [place] [phone] Homer Hernandez MD 05/13/2024 [facility] [address] [place] [phone] Homer Hernandez MD 05/13/2024 2:00 PM CDT Procedure visit [address] [place] [phone] Homer Hernandez MD PMB (postmenopausal bleeding) (Primary Dx) 04/03/[address] [place] [phone] Wendy Thompson RN and Lab Results 04/01/2024 8:10 AM PROFILE STITCHING MACHINE OPERATOR Lab [address] Symptomatic menopausal or female climacteric states 04/01/2024 8:30 AM PROFILE STITCHING MACHINE OPERATOR Ancillary Procedure [address] [place] [phone] PMB (postmenopausal bleeding) 03/25/2024 Results Follow-Up [address] [place] [address] Wendy Thompson RN Symptomatic menopausal or female climacteric states (Primary Dx) 03/19/2024 1:00 PM PROFILE STITCHING MACHINE OPERATOR Office Visit [facility] [address] [place] [address] [address] [place] [address] Homer Hernandez MD PMB (postmenopausal bleeding) (Primary [...] 01/23/2023 Assessment & Plan (01/23/2023 10:15 AM PROFILE STITCHING MACHINE OPERATOR): Patient wishes to continue on her [...] 03/21/2019 Assessment & Plan (03/21/2019 4:43 PM PROFILE STITCHING MACHINE OPERATOR): Take famotidine 40 mg tablets daily. She can use [id number] Zegerid capsules once or twice daily as needed as well. Anxiety 02/02/2019 Irritable bowel syndrome with constipation 10/25 Assessment & Plan (03/21/2019 4:43 PM PROFILE STITCHING MACHINE OPERATOR): Will continue Linzess 72 micro g daily capsules. Follow-up in few months. Assessment & Plan (12/20/2018 4:05 PM PROFILE STITCHING MACHINE OPERATOR): Still constipation issues. Will add mineral oil 1 tbsp daily. Will increase Linzess to 145 micro gram capsule daily and samples given. Follow-up in 3 months Assessment & Plan (10/25/2018 12:34 PM CDT): Continue Linzess 72 micro g daily. Discussed with the patient to start fiber gummy is a fiber supplement and also tried [id number] milk of magnesia as needed. Dyspepsia 10/18/2018 Overview (10/18/2018): Added automatically from request for surgery [id number] Assessment & Plan (12/20/2018 4:05 PM PROFILE STITCHING MACHINE OPERATOR): Continue Protonix as I think acid [...] on file Legal Sex Female 2:27 AM PROFILE STITCHING MACHINE OPERATOR Gender Identity Not on file Sexual [...] Read Routine (OP Routine) 04/01/2024 9:27 AM PROFILE STITCHING MACHINE OPERATOR PMB (postmenopausal bleeding) FOLLICLE STIMULATING HORMONE Routine 04/01/2024 8:12 AM PROFILE STITCHING MACHINE OPERATOR Symptomatic menopausal or female climacteric states PAP AND HPV, REFLEX TO HPV GENOTYPES Routine 03/19/2024 1:52 PM PROFILE STITCHING MACHINE OPERATOR Unsatisfactory cervical Papanicolaou smear N. GONORRHOEAE/C. TRACHOMATIS AMPLIFICATION Routine 03/19/2024 1:52 PM PROFILE STITCHING MACHINE OPERATOR Endometritis NM REMOVAL INTRAUTERINE DEVICE IUD Routine 03/19/2024 1:00 PM PROFILE STITCHING MACHINE OPERATOR Encounter for IUD removal SCREENING MAMMOGRAM BILATERAL W GREGOR Schedule Routine, Read Routine (OP Routine) 10/06/2023 9:31 AM CDT from Last 3 Months or Most Recently Relevant to Health Maintenance Results * Surgical pathology tissue exam request - other pathology (05/13/2024 12:00 AM CDT) Clinical information [facility] Comment:Postmenopausal bleed ing PATHOLOGIST [facility] Comment: Alexi Eaton M.D., Board Certified in Anatomic Pathology and Clinical Pathology. (electronic signature) A source [facility] Comment:Endometrium, biopsy A Gross description [facility] Comment: Specimen is received in 10% neutral buffered formalin, labeled with multiple patient identifiers and consists of multiple fragments of soft tissue aggregating to 2.2 x 1.0 x 0.2 cm, irregular in shape and matos-brown in color. The specimen is entirely submitted in one cassette. Site is not given on container. Gross exam(s) performed at: [address] [address] Telecasting Technician: TAMRA ALLISON MD A diagnosis [facility] Comment: Scant strips of endometrial surface epithelium and crushed endometrial stroma, consistent with inactive endometrium/atrophy with blood. Endocervical tissue showing squamous metaplasia. No features diagnostic of hyperplasia or malignancy. 05/13/2024 05/15/2024 2:2 4 AM CDT Narrative [facility] - 05/16/2024 2:58 PM CDT FASTING: UNKNOWN Homer Hernandez MD LAB PATHOLOGY ORDERABLES F inal Result [address] [place] [address] * US Transvaginal (04/01/2024 9:27 AM PROFILE STITCHING MACHINE OPERATOR) [place] No free fluid visualized VIEWPOINT Anatomical Region Laterality Modality Pelvis N/A Ultrasound 04/01/2024 8:54 AM PROFILE STITCHING MACHINE OPERATOR Impressions 04/03/2024 8:09 PM PROFILE STITCHING MACHINE OPERATOR 1. Small retroverted to midplane uterus. EMC is not reliably measured. 2. Normal appearing ovaries bilaterally. Narrative Procedure Note Homer Hernandez MD - 04/03/2024 IMPRESSION: 1. Small retroverted to midplane uterus. EMC is not reliably measured. 2. Normal appearing ovaries bilaterally. Homer Heranndez MD IMG US PROCEDURES Final Re sult * Follicle stimulating hormone (04/01/2024 8:12 AM PROFILE STITCHING MACHINE OPERATOR) FSH 48.4 IUnits/L Comment: Interpretive Data Male: Adults: 1.5 - 12.4 IUnits/L Female: Follicular: 3.5 - 12.5 IUnits/L Ovulation: 4.7 - 21.5 IUnits/L Luteal: 1.7 - 7.7 IUnits/L Postmenopausal: 25.8 - 134.8 IUnits/L Current interpretive data was last revised 2015. Testing performed by: [facility], [address] [place]., [address] Blood 04/01/2024 8:12 AM PROFILE STITCHING MACHINE OPERATOR 04/01/2024 2:29 PM PROFILE STITCHING MACHINE OPERATOR Homer Hernandez MD LAB BLOOD ORDERABLES Final Result CORA PATEL (RANKIN) [address] [facility] Department [place] [address] * Pap and HPV, reflex to HPV Genotypes (03/19/2024 1:52 PM PROFILE STITCHING MACHINE OPERATOR) CLINICAL INFORMATION: [facility] Comment:WWE LMP [facility] Comment:IUD Previous Pap [facility] Comment:NONE GIVEN Prev. Bx [facility] Comment:NONE GIVEN SOURCE: [facility] Comment:Cervix, Endocervix Pap, specimen adequacy [facility] Comment: Satisfactory for evaluation. Endocervical/transformation zone component present. Partially obscuring inflammation HPV interp [facility] Comment: Cytology Results: Negative for intraepithelial lesion or malignancy. COMMENTS [facility] Comment: This Pap test has been evaluated with computer assisted technology. Portable Track Crew Chief [facility] Comment: JAF, CT(ASCP) CT Screening Location: [place] [address] Administration ISAIAH Ruiz [address] Review health science instructor [facility] Comment: TMK, CT(ASCP) CT screening location: [place] [address] Administration [place] [address] Comment [facility] Comment: EXPLANATORY NOTE: The Pap is a [...] High Risk E6/E7 Not Detected NOT DETECTED [facility] Comment: Not Detected High Risk HPV types (16,18,31,33,35,39,45,51,52, 56,58,59,66,68) were not detected. Other HPV types which cause anogenital lesions may be present. The significance of the other types of HPV in malignant processes has not been established. Methodology: Real Time PCR Thin prep-Endocervica l 03/19/2024 1:52 PM PROFILE STITCHING MACHINE OPERATOR 03/20/2024 3:19 AM PROFILE STITCHING MACHINE OPERATOR Homer Hernandez MD LAB CYTOLOGY ORDERABLES Fi nal Result [place] [address] Administration ISAIAH [place]ajas [address] [facility] [address] [place] [address] * N. gonorrhoeae/C. trachomatis Amplification (03/19/2024 1:52 PM PROFILE STITCHING MACHINE OPERATOR) C. trachomatis RNA NOT DETECTED NOT DETECTED [facility] N. gonorrhoeae RNA NOT DETECTED NOT DETECTED [facility] Comment [facility] Comment: The analytical performance characteristics of this assay, when used to test SurePath(TM) specimens have been determined by [facility]. The modifications have not been cleared or approved by the FDA. This assay has been validated pursuant to the CLIA regulations and is used for clinical purposes. For additional information, please refer to https://education.Sticky/faq/MHG565 (This link is being provided for information/ educational purposes only.) 03/19/2024 1:52 PM PROFILE STITCHING MACHINE OPERATOR 03/20/2024 3:19 AM PROFILE STITCHING MACHINE OPERATOR Homer Hernandez MD LAB MICROBIOLOGY - GENERAL ORDERABLES Final Result [facility] [address] [place] [address] * NM REMOVAL INTRAUTERINE DEVICE IUD (03/19/2024 1:00 PM PROFILE STITCHING MACHINE OPERATOR) Narrative Homer Hernandez MD - 03/19/2024 1:00 PM PROFILE STITCHING MACHINE OPERATOR Homer Hernandez MD 04/07/2024 10:11 PM [...] Most Recently Relevant to Health Maintenance Insurance [facility] MEDICARE [facility] HMO/PPO Address: [facility] [address] [place] [address] MEDICARE [facility] Advance Directives For more information, please contact: [phone] * Full Code (Latest Code Status on File) Date Activated Date Inactivated Comments 05/05/2020 11:29 AM 05/05/2020 4:03 PM * Full Code Date Activated Date Inactivated Comments 12/04/2018 7:42 AM 12/04/2018 2:07 PM * Full Code Date Activated Date Inactivated Comments 12/04/2018 7:41 AM 12/04/2018 7:42 AM Care Teams Superintendent Relationship Specialty Start Date End Date Leonarda Ahn MD PCP - General Family Medicine 03/09/23
--- OUTSIDE RECORDS SUMMARY | 2024-05-21 18:59 | XMS_ITS | Clinical Summary ---
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 11/22/2019 ADAN JEAN MD Active Last Documented On 11/22/2019 10:28AM ; [facility] Note: Unchanged Bipolar Disorder Moderate 02/13/2019 ADAN JEAN MD Active Last Documented On 02/13/2019 1:27PM ; [facility] Note: Unchanged Bipolar I Disorder Currently in Remission 12/26/2018 ADAN JEAN MD Active Last Documented On 12/26/2018 12:59PM ; [facility] Note: Unchanged Schizophrenia, in Remission 12/26/2018 ADAN JEAN MD Active Last Documented On 12/26/2018 12:59PM ; [facility] Note: Unchanged Dysphagia 09/05/2018 ADAN JEAN MD Active Last Documented On 09/05/2018 1:26PM ; [facility] Note: Unchanged Peripheral Neuropathy Sensory 09/05/2018 ADAN JEAN MD Active Last Documented On 09/05/2018 1:26PM ; [facility] Note: Unchanged Gerd 02/14/2018 ADAN JEAN MD Active Last Documented On 02/14/2018 2:54PM ; [facility] Note: Unchanged Nicotine Dependence 02/14/2018 ADAN JEAN MD Active Last Documented On 02/14/2018 2:54PM ; [facility] Note: Unchanged Streptococcal Sore Throat 01/26/2015 TIA 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 Active Last Documented On 01/26/2015 4:10PM ; [facility] Note: Unchanged Gastroenteritis Viral 01/26/2015 [facility] Active Last Documented On 01/26/2015 4:10PM ; [facility] Note: Unchanged Carpal Tunnel Syndrome 04/18/2012 SHELLI JEAN MD Active Last Documented On 04/18/2012 1:29PM ; [facility] Note: Unchanged Irritable Bowel Syndrome 10/22/2009 ADAN JEAN MD Active Last Documented On 7 10:30AM ; [facility] Allergic Rhinitis 10/22/2009 ADAN JEAN MD Active Last Documented On 7 3:54PM ; [facility] Hyperlipidemia 10/22/2009 ADAN JEAN MD Act lokesh Last Documented On 7 10:30AM ; [facility] Cerebral Artery Aneurysm 10/22/2009 ADAN ODOM MD Active Last Documented On 0 1:19PM ; [facility] Note: Unchanged Plan of Treatment No [...] 03/09/2020 1:46PM By ADAN JEAN MD ; [facility] Amitriptyline HCl 10 MG Oral Tablet 03/09/2020 Provi kevin: ADAN JEAN MD Diagnosis: TAKE 2 TABLETS BY MOUTH AT BEDTIME DIRECTED Last Documented On 03/09/2020 1:45PM By ADAN JEAN MD ; [facility] risperiDONE 0.5 MG Oral Tablet Disintegrating 11/29/19 20 Provider: ADAN JEAN MD Diagnosis: one tab po QD as needed for acute anxiety Last Documented On 11/29/2019 9:24AM By ADAN JEAN MD ; [facility] risperiDONE 0.5 MG Oral Tablet 11/29/2019 Provider: ADAN JEAN MD Diagnosis: 2 tabs QHS Last Documented On 11/29/2019 9:24AM By ADAN JEAN MD ; [facility] Melatonin 10 MG Oral Capsule 11/20/2019 Provider : Diagnosis: OTC Last Documented On 0 2:05PM By CANDY REYES LPN ; [facility] Cetirizine HCl 10 MG Oral Tablet 11/20/2019 Provider : Diagnosis: Last Documented On 0 2:01PM By CANDY REYES LPN ; [facility] Famotidine 40 MG Oral Tablet 11/20/2019 Provider: Diagnosis: Last Documented On 0 2:00PM By CANDY REYES LPN ; [facility] OXcarbazepine 300 MG Oral Tablet 10/23/2019 Provider : ADAN JEAN MD Diagnosis: TAKE 3 TABLETS BY MOUTH AT BEDTIME Last Documented On 10/23/2019 1:40PM By ADAN JEAN MD ; [facility] Linzess 72MCG Oral Capsule 09/05/2018 Provider: Stephen JEAN MD Diagnosis: One tablet daily Last Documented On 09/05/2018 12:01PM By ADAN JEAN MD ; [facility] Omeprazole 20MG Oral Capsule , delayed-release 02/14/2018 Provider: ADAN JEAN MD Diagnosis: Gastro-esophagea l reflux disease with esophagitis One tablet daily Last Documented On 02/14/2018 2:59PM By ADAN JEAN MD ; [facility] Medications Administered Includes: Administered Medications from [...] Active Last Documented On 7 10:17AM ; [facility] Stadol Allergy 09/10/2014 Active Last Documented On 7 10:17AM ; [facility] Note: NERVOUS, FEELS ANSY Samuelin Allergy 09/10/2014 Active Last Documented On 7 10:17AM ; [facility] Note: CAUSES NERVOUSNESS Encounters Encounter Provider Location Date Check-In Time Check-Out Time Diagnosis * PHONE CALL ADAN JEAN MD [facility] 0 3:03PM 11:59PM Insurance Includes: Active Insurance Policies Plan Name Member ID Group # Subscriber Relationship Effect lokesh Dates - [facility] [id number] LINN [place] Clinical Notes Includes: Clinical Notes from this encounter No Clinical Notes Recorded
[2024-05-21 19:30] LABS: Erythrocyte Sedimentation Rate 50 mm/hr (0-20)
[2024-05-21] MEDS: SULFAMETHOXAZOLE/TRIMETHOPRIM 800/160 MG DS TABLET 1 TAB PO (20:23)
[2024-05-21 20:27] VITALS: BP 131/85; PULSE 79; RESP 16; O2SAT 97
== END 2024-05-21 20:30 | disposition home or self-care (01) ==
PROVIDERS: Physician Assistant; Emergency Provider Physician Assistant; PCP Family Medicine
DX: L03.213 Periorbital cellulitis (principal); F17.210 Nicotine dependence, cigarettes, uncomplicated; F31.9 Bipolar disorder, unspecified; I10 Essential (primary) hypertension; Z97.5 Presence of (intrauterine) contraceptive device
CPT/HCPCS: 36415; 70487; 80053; 85025; 85652; 86140; 99284; A9270; Q9967

== ENCOUNTER 2024-12-27 14:20 | Outpatient (CLI) | payer OTHER, MEDICARE, SELFPAY ==
--- NOTE | ~2024-12-27 | MM_ITS ---
EXAMINATION: MM screening roman BI w carola HISTORY: Screening TECHNIQUE: Craniocaudal and mediolateral oblique 3-D tomosynthesis images were obtained and synthetic 2-D images were generated. CAD analysis was submitted and interpreted. COMPARISON: Comparison to multiple prior studies sequentially, with oldest reviewed study dated 01/24/2018. BREAST PARENCHYMAL COMPOSITION: Not dense: There are scattered areas of fibroglandular density. FINDINGS: There is a new small obscured mass in the lower central aspect of the right breast, middle third. The left breast is stable without evidence for malignancy. IMPRESSION: 1. New right breast mass. 2. Additional mammographic views and possible breast ultrasound are recommended. BI-RADS Category 0: Incomplete: Needs additional imaging evaluation. Reviewed, dictated and finalized at location O. D CANE SCALER HELPER IMPRESSION: 1. New right breast mass. 2. Additional mammographic views and possible breast ultrasound are recommended . BI-RADS Category 0: Incomplete: Needs additional imaging evaluation.
--- OUTSIDE RECORDS SUMMARY | 2024-12-27 14:25 | XMS_ITS | Clinical Summary ---
Author Organization [facility] Address [address] [place] [address] Phone Care Team Providers Care Photographic Press Screwmaker Name Role Phone Alexi Toth MD Primary Care Provider [phone] Social History Tobacco Use Types Packs/Day Years [...] Cervical Cancer Screening (CCS) 07/28/1995 HPV/Cotest 07/28/1995 Cologuard 2010 Colonoscopy 2010 Colorectal Cancer Screening 2010 Immunochemical Fecal Occult Blood 2010 Pneumococcal Immunization (5 0+ years) (1 of 1 - PCV) 07/28/2015 Zoster Immunization (1 of 2) 07/28/2015 Influenza Immunization (#1) 2024 SARS-COV-2 Immunization ( - season) 2024 Respiratory Syncytial Virus (RSV) Immunization (Adult) (1 - 1-dose 75+ series) 2040 Human Papillomavirus (HPV) Immunization Aged Out No longer eligible b ased on patient's age to complete this topic Meningococcal Immunization (ACWY) Aged Out No longer eligible based on patient's age to complete this topic Rotavirus Immunization Aged Out No lo nger eligible based on patient's age to complete this topic Care Teams Photographic Press Screwmaker Relationship Specialty Start Date End Date Alexi Toth MD [address] [place] [address] PCP - General Family Medicine 07/13/15
--- OUTSIDE RECORDS SUMMARY | 2024-12-27 14:25 | XMS_ITS | Clinical Summary ---
Author Organization [facility] Address [address] [place] [address] Care Team Providers Care Retail Pos Specialist Name Role Phone Alexi Toth MD Primary Care Provider [phone] Source Comments [facility],non-owned Affiliates and Associated Physician Practices is amultiple site organization consisting of ambulatory clinics and hospital sitesin [place], [place], [place] and [place]. This disclosure is being madepursuant to the Care Everywhere program and may not contain all information available regarding this patient. Last updated 17.[facility] Active Problems Problem Noted Date Diagnosed Date [...] on file Legal Sex Female 7:54 AM HAND GLASS CUTTER Gender Identity Not on file Sexual Orientation [...] of 3 - 19+ 3-dose series) 1984 PAP SMEAR 1986 Cervical Cancer Screening 07/28/1995 PAP with HPV 07/28/1995 PNEUMOCOCCAL VACCINE 50+ (1 of 1 - PCV) 07/28/2015 ZOSTER VACCINE (1 of 2) 07/28/2015 MAMMOGRAM 10/25/2015 10/24/2013, 02/24/2011, 12/07/2009 DEPRESSION SCREENING 02/07/2024 COVID-19 VACCINE (1 - 2024-2 6 season) 2024 INFLUENZA VACCINE (#1) 2024 HIB VACCINE Aged Out No longer [...] Recently Relevant to Health Maintenance Care Teams Retail Pos Specialist Relationship Specialty Start Date End Date Alexi Toth MD [address] [place] [address] PCP - General 02/24/11
--- OUTSIDE RECORDS SUMMARY | 2024-12-27 14:25 | XMS_ITS | Clinical Summary ---
Author Organization [facility] Address [address] [place] [address] Care Team Providers Care Engineer Chief Name Role Phone Leonarda hAn MD Primary Care Provider [phone] Allergies No known active allergies Medications amitriptyline [...] mg total) by mouth daily 5 Active FLUoxetine (PROzac) 20 mg capsule Take 1 capsule (20 mg total) by mouth every morning 5 Active temazepam (RESTORIL) 30 mg capsule Take 1 capsule (30 mg total) by mouth nightly 5 Active OLANZapine (ZyPREXA) 10 mg tablet Take 1 tablet (10 mg total) by mouth nightly 5 Active Active Problems Problem Noted Date Diagnosed Date Family history of breast cancer 12/16/2024 Personal history of nicotine dependence 12/17/19 25 Assessment & Plan (12/16/2024 11:47 AM HAND COREMAKER): Orders: CT Lung Cancer Screening; Future Primary hypertension 12/16/2024 Assessment & Plan (12/16/2024 11:47 AM HAND COREMAKER): Continue lisinopril 5 mg daily Bipolar affective disorder, currently depressed, mild 12/16/2024 Assessment & Plan (12/16/2024 11:47 AM HAND COREMAKER): Discussed doing things that she enjoys and follow up with Psychiatry Menopause 01/23/2023 Assessment & Plan (01/23/2023 10:15 AM HAND COREMAKER): Patient wishes to continue on her estrogen [...] Patient verbalizes understanding. Cerebral aneurysm, nonruptured 04/09/2020 Assessment & Plan (12/16/2024 11:47 AM HAND COREMAKER): Follow-up as per Neurosurgery Gastroesophageal reflux disease 03/21/2019 Assessment & Plan (03/21/2019 4:43 PM HAND COREMAKER): Take famotidine 40 mg tablets daily. She can use [id number] Zegerid capsules once or twice daily as needed as well. Anxiety 02/02/2019 Irritable bowel syndrome with constipation 10/25 Assessment & Plan (03/21/2019 4:43 PM HAND COREMAKER): Will continue Linzess 72 micro g daily capsules. Follow-up in few months. Assessment & Plan (12/20/2018 4:05 PM HAND COREMAKER): Still constipation issues. Will add mineral oil 1 tbsp daily. Will increase Linzess to 145 micro gram capsule daily and samples given. Follow-up in 3 months Assessment & Plan (10/25/2018 12:34 PM CDT): Continue Linzess 72 micro g daily. Discussed with the patient to start fiber gummy is a fiber supplement and also tried hudk-oni-gkkzbob milk of magnesia as needed. Dyspepsia 10/18/2018 Overview (10/18/2018): Added automatically from request for surgery [id number] Assessment & Plan (12/20/2018 4:05 PM HAND COREMAKER): Continue Protonix as I think acid reflux is part of her symptoms. Follow-up in 3 months. Assessment & Plan (10/25/2018 12:34 PM CDT): Schedule EGD for further evaluation. Patient was reassured regarding her room complaints and likely related to irritable bowel syndrome. Thoracic outlet syndrome 03/15/2012 Carpal tunnel syndrome 03/15/2012 Encounters Date Type Department Care Team Description 12/16/2024 11:00 AM HAND COREMAKER Office Visit [facility] at [address] [place] [phone] Leonarda Ahn MD Primary hypertension (Primary Dx); Personal history of nicotine dependence; Cerebral aneurysm, nonruptured; Bipolar affective disorder, currently depressed, mild (HCC) 12/16/2024 Telephone [facility] Medical [facility] at [address] [place] [phone] Leonarda Ahn MD from Last 3 Months Immunizations Immunization Administration Dates Next Due Influenza, Quadrivalent, Spl it, Preservative Free, Intramuscular 01/05/2018 Influenza, Trivalent, IM (MDV) 01/11/2017 Influenza, Unspecified 12/16/2024(Deferr ed: Patient Refused),01/05/2018 Moderna Sars-cov-2 Monovalen t Booster Vaccination (12+ YRS) 06/25/2020,05/28/2020 Pneumococcal Conjugate Pcv20 12/16/2024(Deferred : Patient Refused) Tdap 12/16/2024(Deferred: Patient Ref used) ZOSTER Recombinant 12/16/2024(Deferred: Patient Refused) Surgical History Surgery Date Site/Laterality Comments COLONOSCOPY 2 years ago UPPER GASTROINTESTINAL ENDOSCOPY at age 16 CHOLECYSTECTOMY ANGIO SELECTIVE INTERNAL CAROTID RIGHT 05/05/2020 [facility] CERVICAL CONE BIOPSY N/A ANGIO SELECTIVE INTERNAL CAROTID RIGHT 08/15/2024 [facility] Medical History Medical History Date Comments Constipation Brain aneurysm Dysphagia at times GERD (gastroesophageal reflux disease) Depression Migraine Tuberculosis Abnormal Pap smear of cervix Bipolar disorder Family History Medical History Relation Name Comments [...] Given: Yes Alcohol Use Standard Drinks/Week Comments Not Currently 0 (1 standard drink = 0.6 oz [...] points, staff should administer the PHQ-9) 0 12/16/2024 AUDIT-C Answer Date Recorded Q1: How often do you have a drink containing alcohol? Never 12/16/2024 Q2: How many drinks containi ng alcohol do you have on a typical day when you are drinking? Patient does not drink Q3: How often do you have si x or more drinks on one occasion? Never 12/16/2024 Personal Safety Answer Date Recorded Have you ever been in or are you currently in a harmful physical or emotional relationship or is someone making you feel afraid or unsafe? Denies 08/15/2024 Comments No Sex and Gender Information Value Date Recorded Sex Assigned at Not on file Legal Sex Female 2:27 AM HAND COREMAKER Gender Identity Not on file Sexual Orientation Not on file Obstetrics History Para Term AB IAB SAB Ectopic Multiple Livin g Live Births 3 3 3 3 3 Date Outcome GA Total Labor Labor/2nd/3rd Weight Sex Type Anes PTL Kroina A1 A5 Name Clin 1989 Term M Living 1992 Term M Living 1994 Term F Living Last Filed Vital Signs Vital Sign Reading Time Taken Comments Blood Pressure 124/70 12/16/2024 11:14 AM HAND COREMAKER Pulse 87 12/16/2024 11:14 AM HAND COREMAKER Temperature 36.8 C (98.2 F) 12/16/2024 11:14 AM HAND COREMAKER Respiratory Rate 18 12/16/2024 11:14 AM HAND COREMAKER Oxygen Saturation 97% 12/16/2024 11:14 AM HAND COREMAKER Inhaled Oxygen Concentration - - Weight 69.2 kg (152 lb 8 oz) 12/16/2024 11:14 AM HAND COREMAKER Height 165.1 cm (5' 5) 12/16/2024 11:14 AM HAND COREMAKER Body Mass Index 25.38 12/16/2024 11:14 AM HAND COREMAKER Plan of Treatment Health Maintenance Due Date Last Done Comments Colon Cancer Screening-Colonoscopy 1965 Hepatitis C Screening 1965 DTaP/Tdap/Td Vaccine (1 - Tdap) 1976 Hepatitis B Screening 07/28/1983 Pneumococcal vaccine <65 (1 of 2 - PCV) 1984 Zoster Vaccine (1 of 2) 07/28/2015 Regular Well Visit/Exam 18-64 01/24/2024 01/23/2023 Breast Cancer Screening-Mammogram 10/05/2024 10/06/2023, 10/24/2013, 02/24/2011 Covid-19 Vaccine (5 - 2024-2 6 season) 2024 06/25/2020, 06/25/2020, 05/28/2020, Additional history exists Influenza Vaccine (#1) 2024 8, 01/05/2018, 01/11/2017 Cervical Cancer Screening 03/19/2025 03/19/2024, Depression Screening 12/16/2025 12/16/2024, 01/23/2023, 03/14/2019, Additional history exists Procedures Procedure Name Priority Date/Time Associated Diagnosis Comments PAP AND HPV, REFLEX TO HPV GENOTYPES Routine 03/19/2024 1:52 PM HAND COREMAKER Unsatisfactory cervical Papanicolaou smear SCREENING MAMMOGRAM BILATERAL W GREGOR Schedule Routine, Read Routine (OP Routine) 10/06/2023 9:31 AM CDT from Last 3 Months or Most Recently Relevant to Health Maintenance Results * Pap and HPV, reflex to HPV Genotypes (03/19/2024 1:52 PM HAND COREMAKER) CLINICAL INFORMATION: [facility] Comment:WWE LMP [facility] Comment:IUD Previous Pap [facility] Comment:NONE GIVEN Prev. Bx [facility] Comment:NONE GIVEN SOURCE: [facility] Comment:Cervix, Endocervix Pap, specimen adequacy [facility] Comment: Satisfactory for evaluation. Endocervical/transformation zone component present. Partially obscuring inflammation HPV interp [facility] Comment: Cytology Results: Negative for intraepithelial lesion or malignancy. COMMENTS [facility] Comment: This Pap test has been evaluated with computer assisted technology. Decorating Instructor [facility] Comment: ARMANDO HUGHES(ASCP) CT Screening Location: [place] [address] [place] [address] Review loft rigger [facility] Comment: ADRIEN, CT(ASCP) CT screening location: [place] [address] [address] ISAIAH Ruiz [facility] Comment [facility] Comment: EXPLANATORY NOTE: The Pap is [...] High Risk E6/E7 Not Detected NOT DETECTED [facility] Comment: Not Detected High Risk HPV types (16,18,31,33,35,39,45,51,52, 56,58,59,66,68) were not detected. Other HPV types which cause anogenital lesions may be present. The significance of the other types of HPV in malignant processes has not been established. Methodology: Real Time PCR Thin prep-Endocervica l 03/19/2024 1:52 PM HAND COREMAKER 03/20/2024 3:19 AM HAND COREMAKER Homer Hernandez MD LAB CYTOLOGY ORDERABLES Fi nal Result [facility] [address] [place] [address] [phone] * Screening Mammogram Bilateral W Gregor (10/06/2023 9:31 AM CDT) Anatomical Region Laterality Modality Breast Bilateral Mammography Historical Provider IMG MAMMO PROCEDURES Yulissa l Result from Last 3 Months or Most Recently Relevant to Health Maintenance Insurance [facility] MEDICARE MEDICARE MEDICARE [facility] Advance Directives For more information, please contact: [phone] * Full Code (Latest Code Status on File) Date Activated Date Inactivated Comments 08/15/2024 11:02 AM 08/16/2024 5:11 AM * Full Code Date Activated Date Inactivated Comments 05/05/2020 11:29 AM 05/05/2020 4:03 PM * Full Code Date Activated Date Inactivated Comments 12/04/2018 7:42 AM 12/04/2018 2:07 PM * Full Code Date Activated Date Inactivated Comments 12/04/2018 7:41 AM 12/04/2018 7:42 AM Care Teams Engineer Chief Relationship Specialty Start Date End Date Leonarda Ahn MD PCP - General Family Medicine 03/09/23
== END 2024-12-27 14:21 | disposition home or self-care (01) ==
LOC: ANHFOHIMG 14:23
PROVIDERS: PCP Family Medicine; Visit Provider Family Medicine
DX: Z12.31 Encounter for screening mammogram for malignant neoplasm of breast (principal); R92.8 Other abnormal and inconclusive findings on diagnostic imaging of breast
CPT/HCPCS: 77063; 77067